=== PATIENT | female | born 1950 | race Caucasian/White ===

== ENCOUNTER 2017-06-03 22:10 | Inpatient (IN) | payer MEDICARE, OTHER ==
--- NOTE | 2017-06-03 23:02 | ED PDOC ---
Arrival/HPI - General Chief Complaint: Shortness Of Breath Time Seen by Provider: 06/03/17 22:30 Historian: Patient - History of Present Illness Narrative History of Present Illness (Text): 06/03/17 23:02 A 66 year old female presents to the emergency department complaining of shortness of breath for two days. Patient reports she went to PMD, who gave patient Albuterol and Antibiotics without relief. Patient reports headache and body aches. Patient denies any other complaints at this time. Time/Duration: < week Symptom Onset: Sudden Symptom Course: Unchanged Activities at Onset: Rest Context: Home Past Medical History - Provider Review Nursing Documentation Reviewed: Yes - Tetanus Immunization Tetanus Immunization: Unknown - Cardiac Hx Cardiac Disorders: No - Pulmonary Hx Respiratory Disorders: Yes Hx Chronic Obstructive Pulmonary Disease (COPD): Yes - Neurological Hx Neurological Disorder: No - HEENT Hx HEENT Disorder: Yes Hx Glaucoma: Yes - Renal Hx Renal Disorder: No - Endocrine/Metabolic Hx Endocrine Disorders: No - Hematological/Oncological Hx Blood Disorders: No - Integumentary Hx Dermatological Disorder: No - Musculoskeletal/Rheumatological Hx Musculoskeletal Disorders: Yes Hx Arthritis: Yes (oestoporsis) - Gastrointestinal Hx Gastrointestinal Disorders: No - Genitourinary/Gynecological Hx Genitourinary Disorders: No - Psychiatric Hx Psychophysiologic Disorder: No Hx Depression: No Hx Emotional Abuse: No Hx Physical Abuse: No Hx Substance Use: No - Surgical History Hx Hysterectomy: Yes - Suicidal Assessment Feels Threatened In Home Enviroment: No Family/Social History - Physician Review Nursing Documentation Reviewed: Yes Family/Social History: No Known Family HX Smoking Status: Former Smoker Hx Alcohol Use: Yes Frequency of alcohol use: Socially Hx Substance Use: No Hx Substance Use Treatment: No Allergies/Home Meds Allergies/Adverse Reactions: Allergies EGG Allergy (Verified 06/03/17 22:51) ANAPHYLAXIS Home Medications: Home Meds Medication Instructions Recorded Confirmed Albuterol 0.083% [Albuterol 0.083% 3 ml IH BID PRN 03/09/13 06/04/17 Inhal Cristal (2.5 mg/3 ml) UD] Brinzolamide [Azopt] 1 drop OP BID 05/23/13 06/04/17 Peg-400/Propylene Glycol [Systane 1 drop BID PRN 05/23/13 06/04/17 0.4%-0.3%] cycloSPORINE [Restasis] 1 drop OP BID 05/23/13 06/04/17 Tiotropium [place] [Spiriva] 18 mcg IH DAILY 11/29/13 06/04/17 Review of Systems - Physician Review All systems were reviewed & negative as marked: Yes - Review of Systems Constitutional: Other (body aches) Respiratory: SOB Neurological: Headache Physical Exam Vital Signs Reviewed: Yes Vital Signs Temp Pulse Resp BP Pulse Ox 06/04/17 04:07 99 H 19 106/55 L 96 06/04/17 03:56 121 H 20 108/60 94 L 06/04/17 00:33 98.4 F 135 H 19 133/69 95 06/03/17 23:10 20 95 06/03/17 22:32 100.0 F H 133 H 22 134/85 93 L Temperature: Febrile Blood Pressure: Normal Pulse: Tachycardic Respiratory Rate: Normal Appearance: Positive for: Well-Appearing, Non-Toxic, Comfortable Pain Distress: None Mental Status: Positive for: Alert and Oriented X 3 - Systems Exam Head: Present: Atraumatic, Normocephalic Pupils: Present: PERRL Extroacular Muscles: Present: EOMI Conjunctiva: Present: Normal Mouth: Present: Moist Mucous Membranes Neck: Present: Normal Range of Motion Respiratory/Chest: Present: Wheezes. No: Accessory Muscle Use Cardiovascular: Present: Regular Rate and Rhythm, Normal S1, S2. No: Murmurs Abdomen: Present: Normal Bowel Sounds. No: Tenderness, Distention, Peritoneal Signs Back: Present: Normal Inspection Upper Extremity: Present: Normal Inspection. No: Cyanosis, Edema Lower Extremity: Present: Normal Inspection. No: Edema Neurological: Present: GCS=15, CN II-XII Intact, Speech Normal Skin: Present: Warm, Dry, Normal Color. No: Rashes Psychiatric: Present: Alert, Oriented x 3, Normal Insight, Normal Concentration Medical Decision Making ED Course and Treatment: 06/03/17 23:00 Impression: A 66 year old female with shortness of breath, headache and body aches. Plan: -- EKG -- Chest X-ray -- labs -- Duoneb, Solumedrol -- Reassess and disposition Prior Visits: Notes and results from previous visits were reviewed. Patient was last seen in the emergency department on 11/29/13 for evaluation of right femur, right hip and right knee pain. Progress Notes: 06/04/17 00:00 EKG: Ordered, reviewed, and independently interpreted the EKG. Rate : 130 BPM Rhythm : sinus tachycardia Interpretation : right bundle branch block Chest X-ray- No Pneumonia, as read by me. 06/04/17 01:55 Spoke with the medical device sales and Dr. Whitt, who agree for patient to be admitted. - Lab Interpretations Microbiology Results: Microbiology Results 06/03/17 23:50 Blood-Venous Blood Culture - Final NO GROWTH AFTER 5 DAYS 06/03/17 23:50 Blood-Venous Gram Stain - Final TEST NOT PERFORMED 06/03/17 23:14 Blood-Venous Blood Culture - Final NO GROWTH AFTER 5 DAYS 06/03/17 23:14 Blood-Venous Gram Stain - Final TEST NOT PERFORMED Lab Results: 06/05/17 06:30 06/05/17 06:30 Lab Results 06/05/17 06:30: Sodium 140, Chloride 104, Potassium 4.3, Carbon Dioxide 30, Anion Gap 11, BUN 10, Creatinine 0.7, Est GFR ( Amer) > 60, Est GFR (Non- Af Amer) > 60, Random Glucose 152 H, Calcium 9.1, Phosphorus 2.8, Magnesium 2.2 , Total Bilirubin < 0.1 L, AST 51 H D, ALT 72 H, Alkaline Phosphatase 50, Lactate Dehydrogenase 581, Total Creatine Kinase 117, Troponin I < 0.01, Total Protein 5.5 L, Albumin 3.3, Globulin 2.2, Albumin/Globulin Ratio 1.5 06/05/17 06:30: WBC 11.0, RBC 3.61, Hgb 11.4 L D, Hct 34.9 L, MCV 96.7, MCH 31.6 , MCHC 32.7, RDW 13.3, Plt Count 265, MPV 9.4 06/03/17 23:50: Influenza Typ A,B (EIA) Negative for flu a/b 06/03/17 23:14: Procalcitonin < 0.05 L 06/03/17 23:14: Sodium 137, Chloride 99, Potassium 4.1, Carbon Dioxide 29, Anion Gap 13, BUN 21, Creatinine 0.9, Est GFR ( Amer) > 60, Est GFR (Non- Af Amer) > 60, Random Glucose 103, Calcium 9.9, Total Bilirubin 0.2, AST 27, ALT 38, Alkaline Phosphatase 52, Lactate Dehydrogenase 561, Total Creatine Kinase 82, Troponin I < 0.01, NT-Pro-B Natriuret Pep 88.7, Total Protein 6.6, Albumin 4.0, Globulin 2.6, Albumin/Globulin Ratio 1.5 06/03/17 23:14: pO2 35, VBG pH 7.36, VBG pCO2 55.0, VBG HCO3 31.1 H, VBG Total CO2 32.8 H, VBG O2 Sat (Calc) 76.0 H, VBG Base Excess 4.2 H, VBG Potassium 4.0, Sodium 135.0, Chloride 100.0, Glucose 108 H, Lactate 1.1, FiO2 21.0, Venous Blood Potassium 4.0 06/03/17 23:14: WBC 10.2, RBC 4.28, Hgb 13.9, Hct 41.2, MCV 96.3, MCH 32.5, MCHC 33.7, RDW 13.3, Plt Count 279, MPV 9.4, Gran % 70.0 H, Lymph % (Auto) 18.8 L, [place] % (Auto) 9.6 H, Eos % (Auto) 1.1 L, Baso % (Auto) 0.5, Gran # 7.18 H, Lymph # (Auto) 1.9, [place] # (Auto) 1.0 H, Eos # (Auto) 0.1, Baso # (Auto) 0.05 06/03/17 23:14: PT 10.4, INR 0.91 L, APTT 26.3 I have reviewed the lab results: Yes - RAD Interpretation Radiology Orders: 06/03/17 23:00 CHEST PORTABLE [RAD] Stat - EKG Interpretation Interpreted by ED Physician: Yes Type: 12 lead EKG - Medication Orders Current Medication Orders: Albuterol/Ipratropium (Duoneb 3 Mg/0.5 Mg (3 Ml) Ud) 3 ml IH Q2H PRN PRN Reason: Shortness of Breath Last Admin: 06/07/17 16:38 Dose: 3 ml Albuterol/Ipratropium (Duoneb 3 Mg/0.5 Mg (3 Ml) Ud) 3 ml IH [id number] [facility] Last Admin: 06/09/17 08:15 Dose: 3 ml Cefpodoxime Proxetil (Vantin) 200 mg PO Q12 [facility] Last Admin: 06/09/17 10:00 Dose: 200 mg Cyclosporine (Restasis) 1 ea OU BID [facility] Last Admin: 06/09/17 10:00 Dose: 1 ea Diphenhydramine HCl (Benadryl) 25 mg PO HS PRN PRN Reason: Insomnia Last Admin: 06/08/17 23:37 Dose: 25 mg Docusate Sodium (Colace) 100 mg PO BID [facility] Last Admin: 06/09/17 10:00 Dose: 100 mg Enoxaparin Sodium (Lovenox) 40 mg SC DAILY EDWARD PRN Reason: Protocol Last Admin: 06/09/17 09:59 Dose: 40 mg Subcutaneous Administrations Document 06/09/17 09:59 CV (Rec: 06/09/17 09:59 CV [facility] [id number]) Charges for Administration # of Subcutaneous Administrations 1 Azithromycin (Zithromax 500mg In Ns) 500 mg in 250 mls @ 167 mls/hr IVPB DAILY EDWARD PRN Reason: Protocol Last Admin: 06/09/17 10:00 Dose: 167 mls/hr eMAR Start Stop Document 06/09/17 10:00 CV (Rec: 06/09/17 10:00 CV [facility] [id number]) Intravenous Solution Start Date 06/09/17 Start Time 10:00 Ketorolac Tromethamine (Toradol) 15 mg IVP Q8H PRN PRN Reason: Pain Last Admin: 06/05/17 11:29 Dose: 15 mg MAR Pain Assessment Document 06/05/17 11:29 RA (Rec: 06/05/17 11:30 [id number] Pain Reassessment Is this a pain reassessment? Yes Sleep Is patient sleeping during reassessment? No Presence of Pain Presence of Pain Yes Pain Scale Used Pain Scale Used Numeric Location Upper or Lower Upper Pain Location Body Site Abdomen Description Description Intermittent IVP Administration Document 06/05/17 11:29 RA (Rec: 06/05/17 11:30 [id number][facility] Charges for Administration # of IVP Administrations 1 Re-Assess: TAYLOR Pain Assessment Document 06/05/17 12:29 RA (Rec: 06/05/17 13:01 [id number][facility] Pain Reassessment Is this a pain reassessment? Yes Sleep Is patient sleeping during reassessment? No Presence of Pain Presence of Pain No Methylprednisolone (Solu-Medrol) 20 mg IVP Q12 [facility] Last Admin: 06/09/17 09:59 Dose: 20 mg IVP Administration Document 06/09/17 09:59 CV (Rec: 06/09/17 10:00 CV [facility] [id number]) Charges for Administration # of IVP Administrations 1 Brinzolamide [Azopt] (1 Drop (Home Med)) 1 drop OP BID [facility] Last Admin: 06/09/17 10:01 Dose: 1 drop Pantoprazole Sodium (Protonix Ec Tab) 40 mg PO 0600 [facility] Last Admin: 06/09/17 05:45 Dose: 40 mg Polyethylene Glycol (Miralax) 17 gm PO BID [facility] Last Admin: 06/09/17 09:59 Dose: Not Given Non-Admin Reason: Patient Refused Discontinued Medications Albuterol/Ipratropium (Duoneb 3 Mg/0.5 Mg (3 Ml) Ud) 3 ml IH Q15M [facility] Stop: 06/03/17 23:31 Last Admin: 06/03/17 23:50 Dose: 3 ml Albuterol/Ipratropium (Duoneb 3 Mg/0.5 Mg (3 Ml) Ud) 3 ml IH STAT STA Stop: 06/07/17 21:58 Last Admin: 06/07/17 22:10 Dose: 3 ml Bisacodyl (Dulcolax) 5 mg PO ONCE ONE Stop: 06/08/17 11:11 Last Admin: 06/08/17 13:24 Dose: 5 mg Diphenhydramine HCl (Benadryl) 25 mg PO ONCE ONE Stop: 06/07/17 21:59 Last Admin: 06/07/17 22:28 Dose: 25 mg Docusate Sodium (Colace) 100 mg PO DAILY [facility] Last Admin: 06/08/17 10:16 Dose: 100 mg Last Bowel Movement Document 06/08/17 10:16 DSZ (Rec: 06/08/17 10:16 DSZ [facility] [id number]) Last Bowel Movement Last Bowel Movement 06/06/18 Ceftriaxone Sodium (Rocephin 1 Gram Ivpb) 1 gm in 100 mls @ 200 mls/hr IVPB STAT STA PRN Reason: Protocol Stop: 06/04/17 02:10 Last Admin: 06/04/17 02:02 Dose: 200 mls/hr eMAR Start Stop Document 06/04/17 02:02 JOL (Rec: 06/04/17 02:02 JOL [id number]) Intravenous Solution Start Date 06/04/17 Start Time 02:02 End Date 06/04/17 End time 02:32 Total Infusion Time 30 Azithromycin (Zithromax 500mg In Ns) 500 mg in 250 mls @ 167 mls/hr IVPB STAT STA PRN Reason: Protocol Stop: 06/04/17 03:11 Last Admin: 06/04/17 02:30 Dose: 167 mls/hr eMAR Start Stop Document 06/04/17 02:30 JOL (Rec: 06/04/17 02:47 [id number] Intravenous Solution Start Date 06/04/17 Start Time 02:32 End Date 06/04/17 End time 04:02 Total Infusion Time 90 Sodium Chloride (Sodium Chloride 0.9%) 1,000 mls @ 80 mls/hr IV .[id number] EDWARD Last Admin: 06/07/17 18:18 Dose: 80 mls/hr eMAR Start Stop Document 06/07/17 18:18 MCV (Rec: 06/07/17 18:18 MCV [id number]) Intravenous Solution Start Date 06/07/17 Start Time 18:18 Ceftriaxone Sodium (Rocephin 1 Gram Ivpb) 1 gm in 100 mls @ 100 mls/hr IVPB DAILY EDWARD PRN Reason: Protocol Last Admin: 06/05/17 11:43 Dose: 100 mls/hr eMAR Start Stop Document 06/05/17 11:43 RA (Rec: 06/05/17 11:43 RA [id number]) Intravenous Solution Start Date 06/05/17 Start Time 11:43 End Date 06/05/17 End time 12:45 Total Infusion Time 62 Ibuprofen (Motrin Tab) 400 mg PO ONCE STA Stop: 06/03/17 23:20 Last Admin: 06/04/17 02:02 Dose: 400 mg MAR Pain/Vitals Document 06/04/17 02:02 JOL (Rec: 06/04/17 02:02 JOL [id number]) Pain Reassessment Is This A Pain ReAssessment? No Presence of Pain Presence of Pain Yes Pain Scale Used Pain Scale Used Numeric Location Pain Location [employer] Expert Intensity 6 Scale Used Numeric Re-Assess: MAR Pain/Vitals Document 06/04/17 03:02 KOPPS (Rec: 06/04/17 05:07 KOPPS [id number]) Pain Reassessment Is This A Pain ReAssessment? Yes Sleep Is patient sleeping during reassessment? No Presence of Pain Presence of Pain No Methylprednisolone (Solu-Medrol) 125 mg IVP ONCE ONE Stop: 06/03/17 23:01 Last Admin: 06/03/17 23:10 Dose: 125 mg IVP Administration Document 06/03/17 23:10 JOL (Rec: 06/03/17 23:29 JOL [id number]) Charges for Administration # of IVP Administrations 1 Methylprednisolone (Solu-Medrol) 60 mg IVP Q12 [facility] Last Admin: 06/04/17 10:58 Dose: 60 mg IVP Administration Document 06/04/17 10:58 KMS (Rec: 06/04/17 10:58 KMS [id number]) Charges for Administration # of IVP Administrations 1 Methylprednisolone (Solu-Medrol) 40 mg IVP Q12 [facility] Last Admin: 06/06/17 21:38 Dose: 40 mg IVP Administration Document 06/06/17 21:38 MAD (Rec: 06/06/17 21:38 MAD [facility] [id number]) Charges for Administration # of IVP Administrations 1 Methylprednisolone (Solu-Medrol) 30 mg IVP Q12 [facility] Last Admin: 06/07/17 21:19 Dose: 30 mg IVP Administration Document 06/07/17 21:19 MJ (Rec: 06/07/17 21:19 MJ [facility] [id number]) Charges for Administration # of IVP Administrations 1 Metoprolol Tartrate (Lopressor) 5 mg IVP STAT STA Stop: 06/04/17 04:01 Last Admin: 06/04/17 04:07 Dose: 5 mg IVP Administration Document 06/04/17 04:07 JOL (Rec: 06/04/17 04:07 JOL [facility] [id number]) Charges for Administration # of IVP Administrations 1 MAY Pulse and Blood Pressure Document 06/04/17 04:07 JOL (Rec: 06/04/17 04:07 JOL [facility] [id number]) Pulse Pulse Rate (60-90) 124 Blood Pressure Blood Pressure (100/60-150/90) 108/60 Metoprolol Tartrate (Lopressor) 5 mg IVP STAT STA Stop: 06/04/17 20:40 Last Admin: 06/04/17 20:57 Dose: 5 mg IVP Administration Document 06/04/17 20:57 KOPPS (Rec: 06/04/17 20:57 KOPPS [id number]) Charges for Administration # of IVP Administrations 1 MAY Pulse and Blood Pressure Document 06/04/17 20:57 KOPPS (Rec: 06/04/17 20:57 KOPPS [id number]) Pulse Pulse Rate (60-90) 116 Blood Pressure Blood Pressure (100/60-150/90) 131/81 Simethicone (Mylicon Chew Tab) 80 mg PO STAT STA Stop: 06/04/17 03:33 Last Admin: 06/04/17 03:48 Dose: 80 mg - Scribe Statement The provider has reviewed the documentation as recorded by the Mayra Villela Provider Scribe Attestation: All medical record entries made by the Scribe were at my direction and personally dictated by me. I have reviewed the chart and agree that the record accurately reflects my personal performance of the history, physical exam, medical decision making, and the department course for this patient. I have also personally directed, reviewed, and agree with the discharge instructions and disposition. Disposition/Present on Arrival - Present on Arrival Any Indicators Present on Arrival: No History of DVT/PE: No History of Uncontrolled Diabetes: No Urinary Catheter: No History of Decub. Ulcer: No History Surgical Site Infection Following: None - Disposition Have Diagnosis and Disposition been Completed?: Yes Diagnosis: Asthmatic bronchitis Disposition: HOSPITALIZED Disposition Time: 02:00 Condition: FAIR
[2017-06-03] MEDS: Albuterol-Ipratrop 3 mg / 0.5 (3 ml) UD IH SCH ×3 (23:10→23:50)
[2017-06-03 23:58] LABS: INR 0.91 (0.93-1.08); PARTIAL THROMBOPLASTIN TIME 26.3 Seconds (25.1-36.5); PROTHROMBIN TIME 10.4 SECONDS (9.4-12.5)
[2017-06-04 00:02] LABS: ALB/GLOB RATIO 1.5 (1.1-1.8); ALT/SGPT 38 U/L (7-56); AST/SGOT 27 U/L (14-36); BLOOD UREA NITROGEN 21 mg/dL (7-21); CALCIUM 9.9 mg/dL (8.4-10.5); GFR AFRICAN-AMERICAN > 60; GFR NON-AFRICAN AMERICAN > 60
[2017-06-04 00:03] LABS: BASO # 0.05 K/mm3 (0.0-2.0); BASO % 0.5 % (0.0-3.0); EOS # 0.1 (0.0-0.7); EOS % 1.1 % (1.5-5.0); GRAN # 7.18 (1.4-6.5); HEMOGLOBIN 13.9 g/dL (12.0-16.0); LYMPH # 1.9 (1.2-3.4); LYMPH % 18.8 % (22.0-35.0); MEAN CELL VOLUME 96.3 fl (80.0-105.0); MEAN CORPUSCULAR HEMOGLOBIN 32.5 pg (25.0-35.0); MEAN CORPUSCULAR HGB CONC 33.7 g/dl (31.0-37.0); MEAN PLATELET VOLUME 9.4 fl (7.0-11.0); MONO % 9.6 % (1.0-6.0); RBC 4.28 10^6/uL (3.5-6.1); RED CELL DISTRIBUTION WIDTH 13.3 % (11.5-14.5); WHITE BLOOD COUNT 10.2 10^3/ul (4.5-11.0)
[2017-06-04 00:12] LABS: B-TYPE NATRIURETIC PEPTIDE 88.7 pg/mL (0-450); TROPONIN I < 0.01 ng/mL
[2017-06-04 00:17] LABS: VENOUS BLOOD GAS BASE EXCESS 4.2 mmol/L (0.0-2.0); VENOUS BLOOD GAS PO2 35 mm/Hg (30-55); VENOUS BLOOD PH 7.36 (7.32-7.43)
[2017-06-04] MEDS ORDERED: cefTRIAXone 1 gm 1 GM/100 ML BAG IVPB STA (01:41)
[2017-06-04] MEDS ORDERED: Azithromycin 500MG/NS 250ml 500 MG/250 ML BAG IVPB STA (01:42)
[2017-06-04] MEDS: Sodium Chloride 0.9% 1,000 ML IV SCH ×2 (02:47→15:15)
--- NOTE | 2017-06-04 02:55 | CP.PCM.HP ---
<Monster Aldridge - Last Filed: 06/04/17 03:28> History of Present Illness - History of Present Illness History of Present Illness: CC: SOB Pt is a 66 yo F with PMH of glaucoma and COPD presents to [facility] with 3 day history of dyspnea. Pt states that due to her history of COPD she has some shortness of breath with increased activity. However, over the past 3 days SOB was occurring during rest. Pt states she also had an associated productive cough with white sputum. Pt went to her PMD for evaluation and was prescribed Azithromycin. However, after 3 days of antibiotics and regular use of her nebulizer at home, patient states that her dyspnea did not improve. Thus, patient came to [facility] to be evaluated. Pt denies any recent illnesses, sick contacts, travel, or admissions to any hospital or health care facilities within the last 3 months. Pt is not O2 dependent. Pt denies CP, n/v/d, abdominal pain, fever, chills, GRAF, or dizziness. PMD: [facility]ilet PMH: Glaucoma and COPD Surg: Breast implants, total hysterectomy All: Eggs FHx: Non-contributory SH: Former 1 ppd for 30 yrs (quit 1 yr ago), social EtOH use, denied illicit drug use Medications as per MAR Present on Admission - Present on Admission Any Indicators Present on Admission: No Review of Systems - Review of Systems Review of Systems: 12 point ROS reviewed and is negative other than what is stated in HPI. Past Patient History - Tetanus Immunizations Tetanus Immunization: Unknown - Past Social History Smoking Status: Former Smoker - CARDIAC Hx Cardiac Disorders: No - PULMONARY Hx Respiratory Disorders: Yes Hx Chronic Obstructive Pulmonary Disease (COPD): Yes - NEUROLOGICAL Hx Neurological Disorder: No - HEENT Hx HEENT Problems: Yes Hx Glaucoma: Yes - RENAL Hx Chronic Kidney Disease: No - ENDOCRINE/METABOLIC Hx Endocrine Disorders: No - HEMATOLOGICAL/ONCOLOGICAL Hx Blood Disorders: No - INTEGUMENTARY Hx Dermatological Problems: No - MUSCULOSKELETAL/RHEUMATOLOGICAL Hx Musculoskeletal Disorders: Yes Hx Arthritis: Yes (oestoporsis) - GASTROINTESTINAL Hx Gastrointestinal Disorders: No - GENITOURINARY/GYNECOLOGICAL Hx Genitourinary Disorders: No - PSYCHIATRIC Hx Psychophysiologic Disorder: No Hx Depression: No Hx Emotional Abuse: No Hx Physical Abuse: No Hx Substance Use: No - SURGICAL HISTORY Hx Hysterectomy: Yes Meds Allergies/Adverse Reactions: Allergies Allergy/AdvReac Type Severity Reaction Status Date / Time EGG Allergy ANAPHYLAXIS Verified 06/03/17 22:51 Physical Exam - Constitutional Appears: No Acute Distress - Head Exam Head Exam: NORMAL INSPECTION - Eye Exam Eye Exam: Normal appearance - ENT Exam ENT Exam: Mucous Membranes Moist - Neck Exam Neck exam: Positive for: Normal Inspection - Respiratory Exam Respiratory Exam: Wheezes (b/l). absent: Accessory Muscle Use, Decreased Breath Sounds, Rales, Rhonchi, Respiratory Distress - Cardiovascular Exam Cardiovascular Exam: Tachycardia, +S1, +S2. absent: Diastolic murmur, Gallop, Rubs, Systolic Murmur - GI/Abdominal Exam GI & Abdominal Exam: Soft. absent: Distended, Guarding, Rebound, Tenderness - Extremities Exam Extremities exam: Positive for: normal inspection - Back Exam Back exam: NORMAL INSPECTION - Neurological Exam Neurological exam: Alert, CN II-XII Intact, Oriented x3 - Psychiatric Exam Psychiatric exam: Normal Affect, Normal Mood - Skin Skin Exam: Dry, Intact, Normal Color, Warm Results - Vital Signs Recent Vital Signs: Last Vital Signs Temp 98.4 F 06/04/17 00:33 Pulse 135 H 06/04/17 00:33 Resp 19 06/04/17 00:33 BP 133/69 06/04/17 00:33 Pulse Ox 95 06/04/17 00:33 - Labs Result Diagrams: 06/03/17 23:14 06/03/17 23:14 Assessment & Plan - Assessment and Plan (Free Text) Assessment: 66 yo F with PMH of glaucoma and COPD admitted for acute bronchitis vs. pneumonia. Plan: 1. Dyspnea - Acute bronchitis vs community acquired pneumonia vs COPD exacerbation - VBG shows some CO2 retention and hypoxia, normal pH and lactate - Influenza negative - CXR negative - EKG showed sinus tachycardia, biatrial enlargement, RBBB - Procal ordered - Ceftriaxone and Azithromycin - Duoneb екатерина and prn for shortness of breath - Solumedrol 60 mg q12h due to wheezing - NS at 80 cc/hr - O2 via NC 2L - F/u blood culture 2. H/o Glaucoma - Cont to home medicatiosn GI/DVT PPx - Protonix - Lovenox Pt seen and discussed in detail with Dr. Whitt. Christopher Aldridge, PGY1 <Edie Whitt - Last Filed: 06/04/17 04:34> Results - Vital Signs Recent Vital Signs: Last Vital Signs Temp 98.4 F 06/04/17 00:33 Pulse 99 H 06/04/17 04:07 Resp 19 06/04/17 04:07 BP 106/55 L 06/04/17 04:07 Pulse Ox 96 06/04/17 04:07 - Labs Result Diagrams: 06/03/17 23:14 06/03/17 23:14 Attending/Attestation - Attestation I have personally seen and examined this patient.: Yes I have fully participated in the care of the patient.: Yes I have reviewed all pertinent clinical information: Yes Notes (Text): 06/04/17 04:17 Patient was seen when she was in the ER in bed # 4. Agree with history , physical examination and plan. Following should be noted. Fever. Mucus in throat. SOB. Wheezing. Headache. Bodyache. Nightsweats for 2-3 months. COPD. Bronchitis. Glaucoma. Gastritis. PUD. History of anemia. History of pneumonia for which hospitalized x 2-3. History of endoscopy. History of colonoscopy -Polypectomy. Osteoporosis. Former smoker. Social use of alcohol. Sinus tachycardia. RBBB. History hystrectomy. History tonsillectomy. Allelrgy to eggs. Allergy to Chicken. Allergy to amoxicillin. Allergy to soap, vitamins. History of high cholesterol. History uterine fibroid. History of dryness of eyes. History epistaxis. Seasonal allergies. Family hisory of [place]-Brother at age 37 years.
[2017-06-04] MEDS: Albuterol-Ipratrop 3 mg / 0.5 (3 ml) UD IH PRN (03:11)
[2017-06-04] MEDS ORDERED: Simethicone 80 mg Chewtab PO STA (03:32)
[2017-06-04] MEDS ORDERED: Metoprolol 1 mg/ml Inj IVP STA ×2 (04:00→20:39)
[2017-06-04] MEDS: Pantoprazole 40 mg EC Tab PO SCH (05:14)
[2017-06-04] MEDS: Albuterol-Ipratrop 3 mg / 0.5 (3 ml) UD IH SCH ×3 (08:09→21:25)
--- NOTE | 2017-06-04 08:27 | RAD ---
HISTORY: sob COMPARISON: 01/08/2017 FINDINGS: LUNGS: No active pulmonary disease. PLEURA: No significant pleural effusion identified, no pneumothorax apparent. CARDIOVASCULAR: Normal. OSSEOUS STRUCTURES: No significant abnormalities. VISUALIZED UPPER ABDOMEN: Normal. OTHER FINDINGS: Calcified breast implants IMPRESSION: No active disease.
[2017-06-04] MEDS ORDERED: MethylPREDNISolone 40 mg Vial IVP SCH (10:00)
[2017-06-04] MEDS: Enoxaparin 40 mg Syringe SC SCH (10:58)
[2017-06-04] MEDS: cycloSPORINE 0.05 % Opth Emulsion UD OU SCH ×2 (10:58→17:42)
[2017-06-04] MEDS: BRINZOLAMIDE OP SCH ×2 (11:24→17:41)
[2017-06-04 11:53] VITALS: BMI 20.2
[2017-06-04] MEDS: cefTRIAXone 1 gm 1 GM/100 ML BAG IVPB SCH (14:33)
[2017-06-04] MEDS: Azithromycin 500MG/NS 250ml 500 MG/250 ML BAG IVPB SCH (14:35)
--- NOTE | 2017-06-04 18:31 | CARD ---
APPROVED REPORT EKG Measurement Heart [id number] [place] 146P84 [id number] <Conclusion> Sinus tachycardia Possible Left atrial enlargement Right bundle branch block Left anterior fascicular block Bifascicular block Abnormal ECG
--- NOTE | 2017-06-04 18:32 | CARD ---
APPROVED REPORT EKG Measurement Heart [id number] [place] 158P85 [id number] <Conclusion> Sinus tachycardia Possible Left atrial enlargement Right bundle branch block Abnormal ECG
--- NOTE | 2017-06-04 18:34 | CARD ---
APPROVED REPORT EKG Measurement Heart [id number] [place] 150P88 [id number] <Conclusion> Poor data quality, interpretation may be adversely affected Sinus tachycardia Biatrial enlargement Right bundle branch block Abnormal ECG
[2017-06-04] MEDS: MethylPREDNISolone 40 mg Vial IVP SCH (20:59)
[2017-06-05] MEDS: Albuterol-Ipratrop 3 mg / 0.5 (3 ml) UD IH SCH ×4 (01:42→19:21)
[2017-06-05] MEDS: Sodium Chloride 0.9% 1,000 ML IV SCH (05:54)
[2017-06-05] MEDS: Pantoprazole 40 mg EC Tab PO SCH (05:54)
[2017-06-05 07:06] LABS: HEMOGLOBIN 11.4 g/dL (12.0-16.0); MEAN CELL VOLUME 96.7 fl (80.0-105.0); MEAN CORPUSCULAR HEMOGLOBIN 31.6 pg (25.0-35.0); MEAN CORPUSCULAR HGB CONC 32.7 g/dl (31.0-37.0); MEAN PLATELET VOLUME 9.4 fl (7.0-11.0); RBC 3.61 10^6/uL (3.5-6.1); RED CELL DISTRIBUTION WIDTH 13.3 % (11.5-14.5)
[2017-06-05 07:16] LABS: TROPONIN I < 0.01 ng/mL
[2017-06-05 07:38] LABS: ALB/GLOB RATIO 1.5 (1.1-1.8); ALBUMIN 3.3 g/dL (3.0-4.8); ALT/SGPT 72 U/L (7-56); AST/SGOT 51 U/L (14-36); BLOOD UREA NITROGEN 10 mg/dL (7-21); CALCIUM 9.1 mg/dL (8.4-10.5); GFR AFRICAN-AMERICAN > 60; GFR NON-AFRICAN AMERICAN > 60
[2017-06-05] MEDS: cycloSPORINE 0.05 % Opth Emulsion UD OU SCH (10:31)
[2017-06-05] MEDS: Enoxaparin 40 mg Syringe SC SCH (10:31)
[2017-06-05] MEDS: MethylPREDNISolone 40 mg Vial IVP SCH ×2 (10:32→21:38)
[2017-06-05] MEDS: Azithromycin 500MG/NS 250ml 500 MG/250 ML BAG IVPB SCH (10:32)
[2017-06-05] MEDS: cefTRIAXone 1 gm 1 GM/100 ML BAG IVPB SCH (11:43)
[2017-06-05] MEDS: BRINZOLAMIDE OP SCH (13:01)
--- NOTE | 2017-06-05 13:17 | CP.PCM.PN ---
<Roxana Sanchez - Last Filed: 06/05/17 13:24> Subjective - Date & Time of Evaluation Date of Evaluation: 06/05/17 Time of Evaluation: 13:16 - Subjective Subjective: Roxana Sanchez DO, PGY-1: Hospitalist Service Patient seen and examined at bedside. Patient complained of left upper abdominal pain overnight and was given toradol 15 mg IVP. This morning on evaluation patient reports her breathing was improved and she was not getting dyspnea with walking to the bathroom; however, in the afternoon patient complained of pain along the costal margins and dyspnea again. Furthermore, overnight patient was given Metoprolol for tachycardia. Objective - Vital Signs/Intake and Output Vital Signs (last 24 hours): Temp Pulse Resp BP Pulse Ox 98 F 90 20 128/72 86 L 06/05/17 06:00 06/05/17 06:00 06/05/17 06:00 06/05/17 06:00 06/05/17 11:47 - Medications Medications: Current Medications Albuterol/Ipratropium (Duoneb 3 Mg/0.5 Mg (3 Ml) Ud) 3 ml IH Q2H PRN PRN Reason: Shortness of Breath Last Admin: 06/04/17 03:11 Dose: 3 ml Albuterol/Ipratropium (Duoneb 3 Mg/0.5 Mg (3 Ml) Ud) 3 ml IH [id number] [facility] Last Admin: 06/05/17 09:05 Dose: 3 ml Cyclosporine (Restasis) 1 ea OU BID [facility] Last Admin: 06/05/17 10:31 Dose: Not Given Enoxaparin Sodium (Lovenox) 40 mg SC DAILY [facility] PRN Reason: Protocol Last Admin: 06/05/17 10:31 Dose: 40 mg Sodium Chloride (Sodium Chloride 0.9%) 1,000 mls @ 80 mls/hr IV .[id number] [facility] Last Admin: 06/05/17 05:54 Dose: 80 mls/hr Ceftriaxone Sodium (Rocephin 1 Gram Ivpb) 1 gm in 100 mls @ 100 mls/hr IVPB DAILY [facility] PRN Reason: Protocol Last Admin: 06/05/17 11:43 Dose: 100 mls/hr Azithromycin (Zithromax 500mg In Ns) 500 mg in 250 mls @ 167 mls/hr IVPB DAILY [facility] PRN Reason: Protocol Last Admin: 06/05/17 10:32 Dose: 167 mls/hr Ketorolac Tromethamine (Toradol) 15 mg IVP Q8H PRN PRN Reason: Pain Last Admin: 06/05/17 11:29 Dose: 15 mg Methylprednisolone (Solu-Medrol) 40 mg IVP Q12 [facility] Last Admin: 06/05/17 10:32 Dose: 40 mg Brinzolamide [Azopt] (1 Drop (Home Med)) 1 drop OP BID [facility] Last Admin: 06/05/17 13:01 Dose: Not Given Pantoprazole Sodium (Protonix Ec Tab) 40 mg PO 0600 [facility] Last Admin: 06/05/17 05:54 Dose: 40 mg - Labs Labs: PT 10.4 SECONDS (9.4-12.5) 06/03/17 23:14 INR 0.91 (0.93-1.08) L 06/03/17 23:14 APTT 26.3 Seconds (25.1-36.5) 06/03/17 23:14 - Constitutional Appears: Non-toxic, No Acute Distress - Head Exam Head Exam: ATRAUMATIC, NORMOCEPHALIC - Eye Exam Eye Exam: EOMI, Normal appearance - ENT Exam ENT Exam: Mucous Membranes Moist - Neck Exam Neck Exam: Normal Inspection - Respiratory Exam Respiratory Exam: Wheezes, NORMAL BREATHING PATTERN. absent: Accessory Muscle Use - Cardiovascular Exam Cardiovascular Exam: RRR, +S1, +S2 - GI/Abdominal Exam GI & Abdominal Exam: Soft, Normal Bowel Sounds. absent: Organomegaly, Rebound - Extremities Exam Extremities Exam: Normal Inspection - Back Exam Back Exam: NORMAL INSPECTION. absent: CVA tenderness (L), CVA tenderness (R) - Neurological Exam Neurological Exam: Alert, Awake, Oriented x3 - Psychiatric Exam Psychiatric exam: Normal Affect, Normal Mood - Skin Skin Exam: Dry, Intact, Normal Color, Warm Assessment and Plan - Assessment and Plan (Free Text) Assessment: 66 year old female with F with PMH of glaucoma and COPD admitted for acute bronchitis vs. pneumonia. Plan: 1) COPD exacerbation - Influenza negative - CXR negative - Procal ordered, negative - Ceftriaxone and Azithromycin day 2 - Duoneb [facility]WARD and PRN - Solumedrol 40 mg q12h due to wheezing - NS at 80 cc/hr - O2 via NC 2L - Blood cultures negative x2 2)Atypical chest pain, r/o ACS - Stat troponin negative, repeat EKG unchanged. 3) Dry eyes and glaucoma - Continue with home medication (Restasis) and brinzolamide. 4) Left Upper quandrant pain and slight rise in AST and ALT - Abdominal US 5) Gait instability and deconditiong - PT evaluation ordered 6)GI/DVT PPx - Protonix - Lovenox Pt seen and discussed in detail with Dr. Burris <Cam Burris - Last Filed: 06/05/17 15:38> Objective - Vital Signs/Intake and Output Vital Signs (last 24 hours): Temp Pulse Resp BP Pulse Ox 98.4 F 108 H 20 121/78 86 L 06/05/17 12:00 06/05/17 12:00 06/05/17 12:00 06/05/17 12:00 06/05/17 11:47 - Medications Medications: Current Medications Albuterol/Ipratropium (Duoneb 3 Mg/0.5 Mg (3 Ml) Ud) 3 ml IH Q2H PRN PRN Reason: Shortness of Breath Last Admin: 06/04/17 03:11 Dose: 3 ml Albuterol/Ipratropium (Duoneb 3 Mg/0.5 Mg (3 Ml) Ud) 3 ml IH [id number] [facility] Last Admin: 06/05/17 13:36 Dose: 3 ml Cefpodoxime Proxetil (Vantin) 200 mg PO Q12 [facility] Cyclosporine (Restasis) 1 ea OU BID [facility] Last Admin: 06/05/17 10:31 Dose: Not Given Enoxaparin Sodium (Lovenox) 40 mg SC DAILY [facility] PRN Reason: Protocol Last Admin: 06/05/17 10:31 Dose: 40 mg Sodium Chloride (Sodium Chloride 0.9%) 1,000 mls @ 80 mls/hr IV .[id number] [facility] Last Admin: 06/05/17 05:54 Dose: 80 mls/hr Azithromycin (Zithromax 500mg In Ns) 500 mg in 250 mls @ 167 mls/hr IVPB DAILY [facility] PRN Reason: Protocol Last Admin: 06/05/17 10:32 Dose: 167 mls/hr Ketorolac Tromethamine (Toradol) 15 mg IVP Q8H PRN PRN Reason: Pain Last Admin: 06/05/17 11:29 Dose: 15 mg Methylprednisolone (Solu-Medrol) 40 mg IVP Q12 [facility] Last Admin: 06/05/17 10:32 Dose: 40 mg Brinzolamide [Azopt] (1 Drop (Home Med)) 1 drop OP BID [facility] Last Admin: 06/05/17 13:01 Dose: Not Given Pantoprazole Sodium (Protonix Ec Tab) 40 mg PO 0600 [facility] Last Admin: 06/05/17 05:54 Dose: 40 mg - Labs Labs: PT 10.4 SECONDS (9.4-12.5) 06/03/17 23:14 INR 0.91 (0.93-1.08) L 06/03/17 23:14 APTT 26.3 Seconds (25.1-36.5) 06/03/17 23:14 Attending/Attestation - Attestation I have personally seen and examined this patient.: Yes I have fully participated in the care of the patient.: Yes I have reviewed all pertinent clinical information, including history, physical exam and plan: Yes Notes (Text): 06/05/17 15:35 66 year old female with past medical history of COPD who is admitted with COPD exacerbation. Still reports dyspnea with even slight exertion today. Continue with iv steroids, duonebs and iv antibiotics. Today also complains of abdominal pain. LFTs are mildly elevated. Will obtain serial cardiac enzymes and abdominal ultrasound. Cam Burris MD Hospitalist.
--- NOTE | 2017-06-05 20:20 | CARD ---
APPROVED REPORT EKG Measurement Heart [id number] <Conclusion> Sinus tachycardia Possible Left atrial enlargement Incomplete right bundle branch block Borderline ECG
[2017-06-06] MEDS: Albuterol-Ipratrop 3 mg / 0.5 (3 ml) UD IH PRN ×2 (00:04→06:00)
[2017-06-06] MEDS: Albuterol-Ipratrop 3 mg / 0.5 (3 ml) UD IH SCH ×4 (01:19→22:39)
[2017-06-06] MEDS: Pantoprazole 40 mg EC Tab PO SCH (05:06)
[2017-06-06 06:32] LABS: HEMOGLOBIN 12.6 g/dL (12.0-16.0); MEAN CELL VOLUME 95.7 fl (80.0-105.0); MEAN CORPUSCULAR HGB CONC 33.4 g/dl (31.0-37.0); MEAN PLATELET VOLUME 9.4 fl (7.0-11.0); RBC 3.94 10^6/uL (3.5-6.1); RED CELL DISTRIBUTION WIDTH 12.9 % (11.5-14.5); WHITE BLOOD COUNT 13.6 10^3/ul (4.5-11.0)
[2017-06-06 06:47] LABS: ALB/GLOB RATIO 1.5 (1.1-1.8); ALBUMIN 3.8 g/dL (3.0-4.8); ALT/SGPT 273 U/L (7-56); AST/SGOT 141 U/L (14-36); BLOOD UREA NITROGEN 15 mg/dL (7-21); CALCIUM 9.8 mg/dL (8.4-10.5); GFR AFRICAN-AMERICAN > 60; GFR NON-AFRICAN AMERICAN > 60
[2017-06-06] MEDS: Azithromycin 500MG/NS 250ml 500 MG/250 ML BAG IVPB SCH (09:54)
[2017-06-06] MEDS: MethylPREDNISolone 40 mg Vial IVP SCH ×2 (09:54→21:38)
[2017-06-06] MEDS: Cefpodoxime (Vantin) 200 mg Tab PO SCH ×2 (09:54→21:38)
[2017-06-06] MEDS: Enoxaparin 40 mg Syringe SC SCH (09:54)
[2017-06-06] MEDS: BRINZOLAMIDE OP SCH ×2 (09:55→17:18)
[2017-06-06] MEDS: cycloSPORINE 0.05 % Opth Emulsion UD OU SCH ×2 (09:55→17:17)
--- NOTE | 2017-06-06 10:05 | US ---
HISTORY: abdominal pain; LFT COMPARISON: None. TECHNIQUE: Sonographic evaluation of the abdomen. FINDINGS: LIVER: Measures 13.6 cm. Patent portal vein. Portal venous flow: Hepatopetal. Unremarkable echogenicity of the liver parenchyma. No mass. No intrahepatic bile duct dilatation. GALLBLADDER: Unremarkable. No gallstones. COMMON BILE DUCT: Measures 2.9 mm. No stones. No dilatation. PANCREAS: Unremarkable as visualized. No mass. No ductal dilatation. RIGHT KIDNEY: Measures 3.9 x 9.3cm. Normal echogenicity. No calculus, mass, or hydronephrosis. LEFT KIDNEY: Measures 5.1 x 9.7cm. Normal echogenicity. No calculus, mass, or hydronephrosis. SPLEEN: Normal in size and contour. No mass. AORTA: No aneurysmal dilatation. IVC: Unremarkable. OTHER FINDINGS: None. IMPRESSION: No acute findings related to/accounting for the clinical presentation.
[2017-06-06 11:40] LABS: HEPATITIS B SURFACE AG Negative (NEGATIVE)
[2017-06-06 11:46] LABS: HEPATITIS A IGM NEGATIVE (NEGATIVE); HEPATITIS B CORE AB NEGATIVE (NEGATIVE)
[2017-06-06 11:58] LABS: HEPATITIS C ANTIBODY NEGATIVE (NEGATIVE)
[2017-06-06] MEDS: POLYETHYLENE GLYCOL 3350 17 GM/Dose PACKET PO SCH (17:17)
--- NOTE | 2017-06-06 18:24 | CP.PCM.PN ---
<Thaddeus Randall - Last Filed: 06/06/17 18:21> Subjective - Date & Time of Evaluation Date of Evaluation: 06/06/17 Time of Evaluation: 07:30 - Subjective Subjective: Thaddeus Randall DO, PGY-1: Hospitalist Service Patient seen and examined at bedside. Patient reports improvement in chest pain , shortness of breath, and cough. Patient continues to have band-like abdominal epigastric pain when she coughs. She denies fevers, chills, nausea, vomiting, diarrhea, constipation. Objective - Vital Signs/Intake and Output Vital Signs (last 24 hours): Temp Pulse Resp BP Pulse Ox 98.2 F 109 H 20 140/80 94 L 06/06/17 14:00 06/06/17 14:00 06/06/17 14:00 06/06/17 14:00 06/06/17 14:00 Intake and Output: 06/06/17 06/06/17 06:59 18:59 Intake Total 120 660 Output Total 500 2 Balance -380 658 - Medications Medications: Current Medications Albuterol/Ipratropium (Duoneb 3 Mg/0.5 Mg (3 Ml) Ud) 3 ml IH Q2H PRN PRN Reason: Shortness of Breath Last Admin: 06/06/17 06:00 Dose: 3 ml Albuterol/Ipratropium (Duoneb 3 Mg/0.5 Mg (3 Ml) Ud) 3 ml IH [id number] [facility] Last Admin: 06/06/17 11:43 Dose: 3 ml Cefpodoxime Proxetil (Vantin) 200 mg PO Q12 [facility] Last Admin: 06/06/17 09:54 Dose: 200 mg Cyclosporine (Restasis) 1 ea OU BID [facility] Last Admin: 06/06/17 17:17 Dose: 1 ea Docusate Sodium (Colace) 100 mg PO DAILY [facility] Last Admin: 06/06/17 14:04 Dose: 100 mg Enoxaparin Sodium (Lovenox) 40 mg SC DAILY [facility] PRN Reason: Protocol Last Admin: 06/06/17 09:54 Dose: 40 mg Sodium Chloride (Sodium Chloride 0.9%) 1,000 mls @ 80 mls/hr IV .[id number] [facility] Last Admin: 06/05/17 05:54 Dose: 80 mls/hr Azithromycin (Zithromax 500mg In Ns) 500 mg in 250 mls @ 167 mls/hr IVPB DAILY [facility] PRN Reason: Protocol Last Admin: 06/06/17 09:54 Dose: 167 mls/hr Ketorolac Tromethamine (Toradol) 15 mg IVP Q8H PRN PRN Reason: Pain Last Admin: 06/05/17 11:29 Dose: 15 mg Methylprednisolone (Solu-Medrol) 40 mg IVP Q12 [facility] Last Admin: 06/06/17 09:54 Dose: 40 mg Brinzolamide [Azopt] (1 Drop (Home Med)) 1 drop OP BID [facility] Last Admin: 06/06/17 17:18 Dose: 1 drop Pantoprazole Sodium (Protonix Ec Tab) 40 mg PO 0600 [facility] Last Admin: 06/06/17 05:06 Dose: 40 mg Polyethylene Glycol (Miralax) 17 gm PO BID [facility] Last Admin: 06/06/17 17:17 Dose: 17 gm - Labs Labs: 06/06/17 05:30 06/06/17 05:30 PT 10.4 SECONDS (9.4-12.5) 06/03/17 23:14 INR 0.91 (0.93-1.08) L 06/03/17 23:14 APTT 26.3 Seconds (25.1-36.5) 06/03/17 23:14 - Constitutional Appears: Non-toxic, No Acute Distress, Chronically Ill - Head Exam Head Exam: ATRAUMATIC, NORMOCEPHALIC - Eye Exam Eye Exam: EOMI, PERRL - ENT Exam ENT Exam: Mucous Membranes Moist - Neck Exam Neck Exam: Normal Inspection - Respiratory Exam Respiratory Exam: Accessory Muscle Use, Decreased Breath Sounds, Prolonged Expiratory Phase, Wheezes. absent: Chest Wall Tenderness, Respiratory Distress , Stridor Additional comments: Comfortable on 2L by NC - Cardiovascular Exam Cardiovascular Exam: Tachycardia, REGULAR RHYTHM, Murmur (2/6 intensity, increases on deep inspiration, best heard over left 5th intercostal space) - GI/Abdominal Exam GI & Abdominal Exam: Soft, Normal Bowel Sounds. absent: Tenderness, Organomegaly - Extremities Exam Extremities Exam: Normal Inspection. absent: Calf Tenderness, Pedal Edema - Neurological Exam Neurological Exam: Alert, Awake, CN II-XII Intact, Oriented x3 - Psychiatric Exam Psychiatric exam: Normal Affect, Normal Mood - Skin Skin Exam: Dry, Intact Assessment and Plan - Assessment and Plan (Free Text) Assessment: Assessment: 66 year old female with F with PMH of glaucoma and COPD admitted for acute bronchitis vs. pneumonia. Plan: 1) COPD exacerbation - Patient not on home O2; though is still requiring it for symptomatic relief; still wheezing on exam - Continue PO vantin and Azithromycin day 3 - Duoneb EDWARD and PRN - Continue Solumedrol 40 mg q12h due to wheezing - NS at 80 cc/hr - O2 via NC 2L - Blood cultures negative x2 2)Atypical chest pain, r/o ACS; murmur noted on exam - Serial troponins negative, repeat EKG unchanged. - Ordered echo for murmur noted on exam; no prior echo on record 3) Dry eyes and glaucoma - Continue with home medication (Restasis) and brinzolamide. 4) Transaminemia - Abdominal pain improving; associated with cough - Transaminemia trending up - Abdominal US done; pending read - Viral hepatitis panel ordered - Continue to monitor 5) Gait instability and deconditiong - PT evaluation ordered 6) Constipation - Patient complaining of constipation - Start Miralax and Colace GI/DVT PPx - Protonix - Lovenox Pt seen and discussed in detail with Dr. Burris <Cam Burris - Last Filed: 06/07/17 07:54> Objective - Vital Signs/Intake and Output Vital Signs (last 24 hours): Temp Pulse Resp BP Pulse Ox 98.2 F 109 H 22 160/94 H 98 06/06/17 22:00 06/06/17 22:00 06/06/17 22:00 06/06/17 22:00 06/06/17 22:00 Intake and Output: 06/07/17 06/07/17 06:59 18:59 Intake Total 840 Balance 840 - Medications Medications: Current Medications Albuterol/Ipratropium (Duoneb 3 Mg/0.5 Mg (3 Ml) Ud) 3 ml IH Q2H PRN PRN Reason: Shortness of Breath Last Admin: 06/06/17 06:00 Dose: 3 ml Albuterol/Ipratropium (Duoneb 3 Mg/0.5 Mg (3 Ml) Ud) 3 ml IH [id number] [facility] Last Admin: 06/07/17 05:06 Dose: 3 ml Cefpodoxime Proxetil (Vantin) 200 mg PO Q12 [facility] Last Admin: 06/06/17 21:38 Dose: 200 mg Cyclosporine (Restasis) 1 ea OU BID [facility] Last Admin: 06/06/17 17:17 Dose: 1 ea Docusate Sodium (Colace) 100 mg PO DAILY [facility] Last Admin: 06/06/17 14:04 Dose: 100 mg Enoxaparin Sodium (Lovenox) 40 mg SC DAILY [facility] PRN Reason: Protocol Last Admin: 06/06/17 09:54 Dose: 40 mg Sodium Chloride (Sodium Chloride 0.9%) 1,000 mls @ 80 mls/hr IV .[id number] [facility] Last Admin: 06/06/17 18:57 Dose: 80 mls/hr Azithromycin (Zithromax 500mg In Ns) 500 mg in 250 mls @ 167 mls/hr IVPB DAILY [facility] PRN Reason: Protocol Last Admin: 06/06/17 09:54 Dose: 167 mls/hr Ketorolac Tromethamine (Toradol) 15 mg IVP Q8H PRN PRN Reason: Pain Last Admin: 06/05/17 11:29 Dose: 15 mg Methylprednisolone (Solu-Medrol) 40 mg IVP Q12 [facility] Last Admin: 06/06/17 21:38 Dose: 40 mg Brinzolamide [Azopt] (1 Drop (Home Med)) 1 drop OP BID [facility] Last Admin: 06/06/17 17:18 Dose: 1 drop Pantoprazole Sodium (Protonix Ec Tab) 40 mg PO 0600 [facility] Last Admin: 06/07/17 05:23 Dose: 40 mg Polyethylene Glycol (Miralax) 17 gm PO BID [facility] Last Admin: 06/06/17 17:17 Dose: 17 gm - Labs Labs: 06/06/17 05:30 06/06/17 05:30 PT 10.4 SECONDS (9.4-12.5) 06/03/17 23:14 INR 0.91 (0.93-1.08) L 06/03/17 23:14 APTT 26.3 Seconds (25.1-36.5) 06/03/17 23:14 Attending/Attestation - Attestation I have personally seen and examined this patient.: Yes I have fully participated in the care of the patient.: Yes I have reviewed all pertinent clinical information, including history, physical exam and plan: Yes Notes (Text): 06/06/17 66 year old female with past medical history of COPD who is admitted with COPD exacerbation. Continue with iv steroids, duonebs and antibiotics. Continue with supplemental oxygen as needed. Abdominal pain has improved although LFTs are still elevated. Will follow up on abdominal US and hepatitis panel. Serial cardiac enzymes were negative and ACS was ruled out. Echocardiogram is ordered. Cam Burris MD Hospitalist.
[2017-06-06] MEDS: Sodium Chloride 0.9% 1,000 ML IV SCH (18:57)
[2017-06-07] MEDS: Albuterol-Ipratrop 3 mg / 0.5 (3 ml) UD IH SCH ×4 (05:06→21:00)
[2017-06-07] MEDS: Pantoprazole 40 mg EC Tab PO SCH (05:23)
[2017-06-07 08:10] LABS: HEMOGLOBIN 12.8 g/dL (12.0-16.0); MEAN CELL VOLUME 94.6 fl (80.0-105.0); MEAN CORPUSCULAR HEMOGLOBIN 32.7 pg (25.0-35.0); MEAN CORPUSCULAR HGB CONC 34.5 g/dl (31.0-37.0); MEAN PLATELET VOLUME 9.3 fl (7.0-11.0); RBC 3.92 10^6/uL (3.5-6.1); RED CELL DISTRIBUTION WIDTH 12.8 % (11.5-14.5); WHITE BLOOD COUNT 12.9 10^3/ul (4.5-11.0)
[2017-06-07 08:34] LABS: ALB/GLOB RATIO 1.5 (1.1-1.8); ALBUMIN 3.6 g/dL (3.0-4.8); ALT/SGPT 186 U/L (7-56); AST/SGOT 48 U/L (14-36); BLOOD UREA NITROGEN 15 mg/dL (7-21); CALCIUM 9.6 mg/dL (8.4-10.5); GFR AFRICAN-AMERICAN > 60; GFR NON-AFRICAN AMERICAN > 60
[2017-06-07] MEDS: Enoxaparin 40 mg Syringe SC SCH (10:29)
[2017-06-07] MEDS: MethylPREDNISolone 40 mg Vial IVP SCH ×2 (10:29→21:19)
[2017-06-07] MEDS: POLYETHYLENE GLYCOL 3350 17 GM/Dose PACKET PO SCH ×2 (10:29→18:17)
[2017-06-07] MEDS: Azithromycin 500MG/NS 250ml 500 MG/250 ML BAG IVPB SCH (10:29)
[2017-06-07] MEDS: Cefpodoxime (Vantin) 200 mg Tab PO SCH ×2 (10:30→21:19)
[2017-06-07] MEDS: BRINZOLAMIDE OP SCH ×2 (10:34→18:16)
[2017-06-07] MEDS: cycloSPORINE 0.05 % Opth Emulsion UD OU SCH ×2 (10:35→18:17)
[2017-06-07] MEDS: Sodium Chloride 0.9% 1,000 ML IV SCH ×2 (10:36→18:18)
[2017-06-07] MEDS: Albuterol-Ipratrop 3 mg / 0.5 (3 ml) UD IH PRN (16:38)
--- NOTE | 2017-06-07 16:52 | CP.PCM.PN ---
<Thaddeus Randall - Last Filed: 06/07/17 16:48> Subjective - Date & Time of Evaluation Date of Evaluation: 06/07/17 Time of Evaluation: 07:30 - Subjective Subjective: Thaddeus Randall DO, PGY-1: Hospitalist Service Patient seen and examined at bedside. Patient reports marked improvement in chest pain, shortness of breath, and cough, though still has abdominal pain with cough. Patient ambulating around room without dyspnea. She denies fevers, chills, nausea, vomiting, diarrhea. Complaining of constipation Objective - Vital Signs/Intake and Output Vital Signs (last 24 hours): Temp Pulse Resp BP Pulse Ox 97.4 F L 111 H 22 139/79 93 L 06/07/17 06:00 06/07/17 06:00 06/07/17 06:00 06/07/17 06:00 06/07/17 06:00 Intake and Output: 06/07/17 06/07/17 06:59 18:59 Intake Total 840 720 Balance 840 720 - Medications Medications: Current Medications Albuterol/Ipratropium (Duoneb 3 Mg/0.5 Mg (3 Ml) Ud) 3 ml IH Q2H PRN PRN Reason: Shortness of Breath Last Admin: 06/07/17 16:38 Dose: 3 ml Albuterol/Ipratropium (Duoneb 3 Mg/0.5 Mg (3 Ml) Ud) 3 ml IH [id number] [facility] Last Admin: 06/07/17 14:32 Dose: 3 ml Cefpodoxime Proxetil (Vantin) 200 mg PO Q12 [facility] Last Admin: 06/07/17 10:30 Dose: 200 mg Cyclosporine (Restasis) 1 ea OU BID [facility] Last Admin: 06/07/17 10:35 Dose: Not Given Docusate Sodium (Colace) 100 mg PO DAILY [facility] Last Admin: 06/07/17 10:30 Dose: 100 mg Enoxaparin Sodium (Lovenox) 40 mg SC DAILY [facility] PRN Reason: Protocol Last Admin: 06/07/17 10:29 Dose: 40 mg Sodium Chloride (Sodium Chloride 0.9%) 1,000 mls @ 80 mls/hr IV .[id number] [facility] Last Admin: 06/07/17 10:36 Dose: 80 mls/hr Azithromycin (Zithromax 500mg In Ns) 500 mg in 250 mls @ 167 mls/hr IVPB DAILY [facility] PRN Reason: Protocol Last Admin: 06/07/17 10:29 Dose: 167 mls/hr Ketorolac Tromethamine (Toradol) 15 mg IVP Q8H PRN PRN Reason: Pain Last Admin: 06/05/17 11:29 Dose: 15 mg Methylprednisolone (Solu-Medrol) 30 mg IVP Q12 [facility] Last Admin: 06/07/17 10:29 Dose: 30 mg Brinzolamide [Azopt] (1 Drop (Home Med)) 1 drop OP BID [facility] Last Admin: 06/07/17 10:34 Dose: Not Given Pantoprazole Sodium (Protonix Ec Tab) 40 mg PO 0600 [facility] Last Admin: 06/07/17 05:23 Dose: 40 mg Polyethylene Glycol (Miralax) 17 gm PO BID [facility] Last Admin: 06/07/17 10:29 Dose: 17 gm - Labs Labs: 06/07/17 07:00 06/07/17 07:00 PT 10.4 SECONDS (9.4-12.5) 06/03/17 23:14 INR 0.91 (0.93-1.08) L 06/03/17 23:14 APTT 26.3 Seconds (25.1-36.5) 06/03/17 23:14 - Constitutional Appears: Non-toxic, No Acute Distress, Chronically Ill - Head Exam Head Exam: ATRAUMATIC, NORMOCEPHALIC - Eye Exam Eye Exam: EOMI, Normal appearance, PERRL - ENT Exam ENT Exam: Mucous Membranes Moist - Neck Exam Neck Exam: Normal Inspection - Respiratory Exam Respiratory Exam: Decreased Breath Sounds, Wheezes, NORMAL BREATHING PATTERN - Cardiovascular Exam Cardiovascular Exam: Tachycardia, REGULAR RHYTHM, +S1, +S2, Murmur - GI/Abdominal Exam GI & Abdominal Exam: Soft, Normal Bowel Sounds. absent: Tenderness - Extremities Exam Extremities Exam: absent: Calf Tenderness, Pedal Edema - Neurological Exam Neurological Exam: Alert, Awake, Oriented x3 - Psychiatric Exam Psychiatric exam: Normal Affect, Normal Mood - Skin Skin Exam: Dry, Intact, Normal Color Assessment and Plan - Assessment and Plan (Free Text) Assessment: 66 year old female with F with PMH of glaucoma and COPD admitted for acute bronchitis vs. pneumonia. Murmur noted on exam. Plan: 1) COPD exacerbation - Patient not on home O2; occasionally requiring it for symptomatic relief; still wheezing on exam - Continue PO vantin and Azithromycin day 4 - Duoneb [facility] and PRN - Continue Solumedrol, decreased to 30 mg q12h - O2 via NC 2L 2)Atypical chest pain, r/o ACS; murmur noted on exam - Serial troponins negative, repeat EKG unchanged. - Ordered echo for murmur noted on exam; no prior echo on record; pending 3) Dry eyes and glaucoma - Continue with home medication (Restasis) and brinzolamide. 4) Transaminemia - Abdominal pain improving; associated with cough - Likely 2/2 medication induced; now trending down - Abdominal US done; negative - Viral hepatitis panel negative - Continue to monitor 5) Gait instability and deconditiong - PT evaluation ordered 6) Constipation - Patient complaining of constipation - Continue Miralax and Colace GI/DVT PPx - Protonix - Lovenox Pt seen and discussed in detail with Dr. Burris <Cam Burris - Last Filed: 06/07/17 18:46> Objective - Vital Signs/Intake and Output Vital Signs (last 24 hours): Temp Pulse Resp BP Pulse Ox 98.3 F 115 H 20 152/89 H 95 06/07/17 14:00 06/07/17 14:00 06/07/17 14:00 06/07/17 14:00 06/07/17 14:00 Intake and Output: 06/07/17 06/07/17 06:59 18:59 Intake Total 840 720 Balance 840 720 - Medications Medications: Current Medications Albuterol/Ipratropium (Duoneb 3 Mg/0.5 Mg (3 Ml) Ud) 3 ml IH Q2H PRN PRN Reason: Shortness of Breath Last Admin: 06/07/17 16:38 Dose: 3 ml Albuterol/Ipratropium (Duoneb 3 Mg/0.5 Mg (3 Ml) Ud) 3 ml IH [id number] [facility] Last Admin: 06/07/17 14:32 Dose: 3 ml Cefpodoxime Proxetil (Vantin) 200 mg PO Q12 [facility] Last Admin: 06/07/17 10:30 Dose: 200 mg Cyclosporine (Restasis) 1 ea OU BID [facility] Last Admin: 06/07/17 18:17 Dose: Not Given Docusate Sodium (Colace) 100 mg PO DAILY [facility] Last Admin: 06/07/17 10:30 Dose: 100 mg Enoxaparin Sodium (Lovenox) 40 mg SC DAILY [facility] PRN Reason: Protocol Last Admin: 06/07/17 10:29 Dose: 40 mg Sodium Chloride (Sodium Chloride 0.9%) 1,000 mls @ 80 mls/hr IV .[id number] [facility] Last Admin: 06/07/17 18:18 Dose: 80 mls/hr Azithromycin (Zithromax 500mg In Ns) 500 mg in 250 mls @ 167 mls/hr IVPB DAILY [facility] PRN Reason: Protocol Last Admin: 06/07/17 10:29 Dose: 167 mls/hr Ketorolac Tromethamine (Toradol) 15 mg IVP Q8H PRN PRN Reason: Pain Last Admin: 06/05/17 11:29 Dose: 15 mg Methylprednisolone (Solu-Medrol) 30 mg IVP Q12 [facility] Last Admin: 06/07/17 10:29 Dose: 30 mg Brinzolamide [Azopt] (1 Drop (Home Med)) 1 drop OP BID [facility] Last Admin: 06/07/17 18:16 Dose: Not Given Pantoprazole Sodium (Protonix Ec Tab) 40 mg PO 0600 [facility] Last Admin: 06/07/17 05:23 Dose: 40 mg Polyethylene Glycol (Miralax) 17 gm PO BID [facility] Last Admin: 06/07/17 18:17 Dose: 17 gm - Labs Labs: 06/07/17 07:00 06/07/17 07:00 PT 10.4 SECONDS (9.4-12.5) 06/03/17 23:14 INR 0.91 (0.93-1.08) L 06/03/17 23:14 APTT 26.3 Seconds (25.1-36.5) 06/03/17 23:14 Attending/Attestation - Attestation I have personally seen and examined this patient.: Yes I have fully participated in the care of the patient.: Yes I have reviewed all pertinent clinical information, including history, physical exam and plan: Yes Notes (Text): 06/07/17 18:44 66 year old female with past medical history of COPD who is admitted with COPD exacerbation. Symptoms are improving with tapering iv steroids, duonebs and antibiotics. PT evaluation was appreciated. Patient is out of bed to chair this morning. Abdominal pain has improved. LFTs are improving as well. US abdomen and hepatitis panel were negative. Serial cardiac enzymes were negative and ACS was ruled out. Echocardiogram is pending. Overall patient's symptoms are improving. Likely d/c planning in 24-48 hrs if no acute issues. Cam Burris MD Hospitalist.
[2017-06-07] MEDS ORDERED: Albuterol-Ipratrop 3 mg / 0.5 (3 ml) UD IH STA (21:57)
[2017-06-08] MEDS: Sodium Chloride 0.9% 1,000 ML IV SCH (01:57)
[2017-06-08] MEDS: Albuterol-Ipratrop 3 mg / 0.5 (3 ml) UD IH SCH ×4 (03:20→20:18)
[2017-06-08] MEDS: Pantoprazole 40 mg EC Tab PO SCH (05:13)
[2017-06-08 07:07] LABS: HEMOGLOBIN 12.6 g/dL (12.0-16.0); MEAN CELL VOLUME 95.5 fl (80.0-105.0); MEAN CORPUSCULAR HEMOGLOBIN 31.8 pg (25.0-35.0); MEAN CORPUSCULAR HGB CONC 33.3 g/dl (31.0-37.0); MEAN PLATELET VOLUME 9.3 fl (7.0-11.0); RBC 3.96 10^6/uL (3.5-6.1); RED CELL DISTRIBUTION WIDTH 12.9 % (11.5-14.5); WHITE BLOOD COUNT 11.7 10^3/ul (4.5-11.0)
[2017-06-08 07:26] LABS: ALB/GLOB RATIO 1.4 (1.1-1.8); ALBUMIN 3.3 g/dL (3.0-4.8); ALT/SGPT 136 U/L (7-56); AST/SGOT 33 U/L (14-36); BLOOD UREA NITROGEN 16 mg/dL (7-21); GFR AFRICAN-AMERICAN > 60; GFR NON-AFRICAN AMERICAN > 60
[2017-06-08] MEDS: Enoxaparin 40 mg Syringe SC SCH (10:15)
[2017-06-08] MEDS: Cefpodoxime (Vantin) 200 mg Tab PO SCH ×2 (10:16→21:43)
[2017-06-08] MEDS: MethylPREDNISolone 40 mg Vial IVP SCH ×2 (10:17→21:43)
[2017-06-08] MEDS: Azithromycin 500MG/NS 250ml 500 MG/250 ML BAG IVPB SCH (10:18)
[2017-06-08] MEDS: POLYETHYLENE GLYCOL 3350 17 GM/Dose PACKET PO SCH ×2 (10:19→18:38)
[2017-06-08] MEDS: BRINZOLAMIDE OP SCH ×2 (10:22→18:37)
[2017-06-08] MEDS: cycloSPORINE 0.05 % Opth Emulsion UD OU SCH ×2 (10:23→18:38)
[2017-06-08] MEDS ORDERED: Bisacodyl 5mg EC Tab PO ONE (11:10)
--- NOTE | 2017-06-08 15:46 | CP.PCM.PN ---
<Roxana Sanchez - Last Filed: 06/08/17 18:32> Subjective - Date & Time of Evaluation Date of Evaluation: 06/08/17 Time of Evaluation: 07:00 - Subjective Subjective: Roxana Sanchez DO, PGY-1: Hospitalist Service Patient seen and examined at bedside. Patient reports worsening dyspnea, especially overnight. Night resident reports patient complained of dyspnea and required a stat treatment of duonebs. Currently, patient reports same baseline dyspnea, especially with walking. Objective - Vital Signs/Intake and Output Vital Signs (last 24 hours): Temp Pulse Resp BP Pulse Ox 97.6 F 100 H 18 134/82 92 L 06/08/17 08:43 06/08/17 08:43 06/08/17 08:43 06/08/17 08:43 06/08/17 08:43 Intake and Output: 06/08/17 06/08/17 06:59 18:59 Intake Total 1271 420 Balance 1271 420 - Medications Medications: Current Medications Albuterol/Ipratropium (Duoneb 3 Mg/0.5 Mg (3 Ml) Ud) 3 ml IH Q2H PRN PRN Reason: Shortness of Breath Last Admin: 06/07/17 16:38 Dose: 3 ml Albuterol/Ipratropium (Duoneb 3 Mg/0.5 Mg (3 Ml) Ud) 3 ml IH [id number] [facility] Last Admin: 06/08/17 13:11 Dose: 3 ml Cefpodoxime Proxetil (Vantin) 200 mg PO Q12 [facility] Last Admin: 06/08/17 10:16 Dose: 200 mg Cyclosporine (Restasis) 1 ea OU BID [facility] Last Admin: 06/08/17 10:23 Dose: 1 ea Docusate Sodium (Colace) 100 mg PO BID [facility] Enoxaparin Sodium (Lovenox) 40 mg SC DAILY [facility] PRN Reason: Protocol Last Admin: 06/08/17 10:15 Dose: 40 mg Azithromycin (Zithromax 500mg In Ns) 500 mg in 250 mls @ 167 mls/hr IVPB DAILY [facility] PRN Reason: Protocol Last Admin: 06/08/17 10:18 Dose: 167 mls/hr Ketorolac Tromethamine (Toradol) 15 mg IVP Q8H PRN PRN Reason: Pain Last Admin: 06/05/17 11:29 Dose: 15 mg Methylprednisolone (Solu-Medrol) 20 mg IVP Q12 [facility] Last Admin: 06/08/17 10:17 Dose: 20 mg Brinzolamide [Azopt] (1 Drop (Home Med)) 1 drop OP BID [facility] Last Admin: 06/08/17 10:22 Dose: 1 drop Pantoprazole Sodium (Protonix Ec Tab) 40 mg PO 0600 [facility] Last Admin: 06/08/17 05:13 Dose: 40 mg Polyethylene Glycol (Miralax) 17 gm PO BID [facility] Last Admin: 06/08/17 10:19 Dose: Not Given - Labs Labs: 06/08/17 06:30 06/08/17 06:30 PT 10.4 SECONDS (9.4-12.5) 06/03/17 23:14 INR 0.91 (0.93-1.08) L 06/03/17 23:14 APTT 26.3 Seconds (25.1-36.5) 06/03/17 23:14 - Constitutional Appears: Non-toxic, No Acute Distress, Chronically Ill - Head Exam Head Exam: ATRAUMATIC, NORMOCEPHALIC - Eye Exam Eye Exam: EOMI, Normal appearance - ENT Exam ENT Exam: Mucous Membranes Moist, Normal Oropharynx - Neck Exam Neck Exam: Normal Inspection - Respiratory Exam Respiratory Exam: Wheezes (bilaterally). absent: Accessory Muscle Use - Cardiovascular Exam Cardiovascular Exam: Tachycardia, +S1, +S2 Additional comments: (2/6 intensity, increases on deep inspiration, best heard over left 5th intercostal space) - GI/Abdominal Exam GI & Abdominal Exam: Soft, Normal Bowel Sounds - Back Exam Back Exam: NORMAL INSPECTION. absent: CVA tenderness (L), CVA tenderness (R) - Neurological Exam Neurological Exam: Alert, Awake, Oriented x3 - Psychiatric Exam Psychiatric exam: Normal Affect, Normal Mood - Skin Skin Exam: Dry, Intact, Normal Color, Warm Assessment and Plan - Assessment and Plan (Free Text) Assessment: 66 year old female with F with PMH of glaucoma and COPD admitted for acute bronchitis vs. pneumonia. Murmur noted on exam. Plan: 1) COPD exacerbation - During 6 minute walk test patient desaturated to 88% with HR up to 140 bpm. - Continue PO vantin and Azithromycin day 5 - Duoneb [facility] and PRN - Continue Solumedrol, decreased to 30 mg q12h - O2 via NC 2L 2)Atypical chest pain, r/o ACS; murmur noted on exam - Serial troponins negative, repeat EKG unchanged. - Transthoracic echocardiogram performed, interpretation pending 3) Dry eyes and glaucoma - Continue with home medication (Restasis) and brinzolamide. 4) Transaminemia - Abdominal pain improving; associated with cough - Likely 2/2 medication induced; now trending down - Abdominal US done; negative - Viral hepatitis panel negative - Continue to monitor 5) Gait instability and deconditiong - PT evaluation recommend no services for gait, but 6 minute walk test reveals patient will need home oxygen therapy. 6) Constipation - Patient complaining of constipation - Continue Miralax and Colace GI/DVT PPx - Protonix - Lovenox <Cathy Portillo - Last Filed: 06/11/17 13:24> Objective - Vital Signs/Intake and Output Vital Signs (last 24 hours): Temp Pulse Resp BP Pulse Ox 98.3 F 109 H 20 103/56 L 94 L 06/10/17 14:00 06/10/17 14:00 06/10/17 14:00 06/10/17 14:00 06/10/17 14:00 - Labs Labs: 06/10/17 09:40 06/10/17 09:40 PT 10.4 SECONDS (9.4-12.5) 06/03/17 23:14 INR 0.91 (0.93-1.08) L 06/03/17 23:14 APTT 26.3 Seconds (25.1-36.5) 06/03/17 23:14 Attending/Attestation - Attestation I have personally seen and examined this patient.: Yes I have fully participated in the care of the patient.: Yes I have reviewed all pertinent clinical information, including history, physical exam and plan: Yes Notes (Text): 06/11/17 13:21 Medical record note made by the resident after discussion with my direction and input after the patient was personally seen and examined by me. I have reviewed the chart and agree that the record accurately reflects by personal performance of the history, physical exam, data review, and medical decision-making, in the course for the patient. I have also personally directed the plan of care. 66 year old female with PMH of COPD is admitted with COPD exacerbation.Cough and dyspnea is improving.Patient oxygen saturation drop less than 88 with 6 minutes walking and she also become tachycardiac.She will need home oxygen prior to discharge. Echo results are pending.
[2017-06-08 16:17] VITALS: RESP 20
--- NOTE | 2017-06-08 18:56 | CARD ---
APPROVED REPORT EXAM: Two-dimensional and M-mode echocardiogram with Doppler and color Doppler. INDICATION [place] 2D DIMENSIONS Left Atrium (2D)2.9 (1.6-4.0cm)IVSd0.9 (0.7-1.1cm) LVDd3.3 (3.9-5.9cm)PWd1.0 (0.7-1.1cm) LVDs2.6 (2.5-4.0cm)FS (%) 21.5 % LVEF (%)44.6 (>50%) M-Mode DIMENSIONS Aortic Root2.60 (2.2-3.7cm)Aortic Cusp Exc.1.30 (1.5-2.0cm) Aortic Valve AoV Peak Uvuwcgmt737.0cm/Mallory Peak GR.10mmHg Mitral Valve E/A ratio0.0 TDI E/Lateral E'0.0E/Medial E'0.0 Pulmonary Valve PV Peak Wuqiewla73.4cm/sPV Peak Grad.3mmHg Tricuspid Valve TR Peak [id number]/sRAP [id number] Peak Gr.21mmHg [id number] LEFT VENTRICLE The left ventricle is normal size. There is normal left ventricular wall thickness. The systolic function is mildly impaired. There is global hypokinesis of the left ventricle. Transmitral Doppler flow pattern is Grade I-abnormal relaxation pattern. No left ventricle thrombus noted on this study. RIGHT VENTRICLE The right ventricle is normal size. There is normal right ventricular wall thickness. The right ventricular systolic function is normal. ATRIA The left atrium size is normal. The right atrium size is normal. AORTIC VALVE The non coronary cusp is prolapsed. There is no aortic valvular stenosis. MITRAL VALVE The mitral valve is normal in structure. Mitral regurgitation is mild. TRICUSPID VALVE The tricuspid valve is normal in structure. GREAT VESSELS The aortic root is normal in size. The IVC is normal in size and collapses >50% with inspiration. PERICARDIAL EFFUSION There is a trace circumferential pericardial effusion. <Conclusion> The left ventricle is normal size. There is normal left ventricular wall thickness. The systolic function is mildly impaired. There is global hypokinesis of the left ventricle. Transmitral Doppler flow pattern is Grade I-abnormal relaxation pattern. Mitral regurgitation is mild. There is a trace circumferential pericardial effusion.
[2017-06-09] MEDS: Albuterol-Ipratrop 3 mg / 0.5 (3 ml) UD IH SCH ×4 (01:56→20:45)
[2017-06-09] MEDS: Pantoprazole 40 mg EC Tab PO SCH (05:45)
[2017-06-09 07:26] LABS: HEMOGLOBIN 13.7 g/dL (12.0-16.0); MEAN CELL VOLUME 95.2 fl (80.0-105.0); MEAN CORPUSCULAR HEMOGLOBIN 31.4 pg (25.0-35.0); MEAN CORPUSCULAR HGB CONC 32.9 g/dl (31.0-37.0); MEAN PLATELET VOLUME 8.9 fl (7.0-11.0); RBC 4.37 10^6/uL (3.5-6.1)
[2017-06-09 07:42] LABS: ALB/GLOB RATIO 1.5 (1.1-1.8); ALBUMIN 3.7 g/dL (3.0-4.8); ALT/SGPT 112 U/L (7-56); AST/SGOT 25 U/L (14-36); BLOOD UREA NITROGEN 18 mg/dL (7-21); CALCIUM 9.9 mg/dL (8.4-10.5); GFR AFRICAN-AMERICAN > 60; GFR NON-AFRICAN AMERICAN > 60
[2017-06-09] MEDS: MethylPREDNISolone 40 mg Vial IVP SCH (09:59)
[2017-06-09] MEDS: Enoxaparin 40 mg Syringe SC SCH (09:59)
[2017-06-09] MEDS: POLYETHYLENE GLYCOL 3350 17 GM/Dose PACKET PO SCH ×2 (09:59→18:00)
[2017-06-09] MEDS: Cefpodoxime (Vantin) 200 mg Tab PO SCH ×2 (10:00→22:59)
[2017-06-09] MEDS: Azithromycin 500MG/NS 250ml 500 MG/250 ML BAG IVPB SCH (10:00)
[2017-06-09] MEDS: cycloSPORINE 0.05 % Opth Emulsion UD OU SCH ×2 (10:00→17:07)
[2017-06-09] MEDS: BRINZOLAMIDE OP SCH ×2 (10:01→17:07)
--- NOTE | 2017-06-09 16:33 | CP.PCM.PN ---
<Roxana Sanchez - Last Filed: 06/09/17 16:50> Subjective - Date & Time of Evaluation Date of Evaluation: 06/09/17 Time of Evaluation: 08:00 - Subjective Subjective: Roxana Sanchez DO, PGY-1: Hospitalist Service Patient seen and examined at bedside. Patient denies chest pain, nausea, vomiting, but admits to persistent dyspnea. Nurse reports no events overnight. Objective - Vital Signs/Intake and Output Vital Signs (last 24 hours): Temp Pulse Resp BP Pulse Ox 97.8 F 114 H 20 139/83 95 06/09/17 07:51 06/09/17 12:18 06/09/17 07:51 06/09/17 12:18 06/09/17 07:51 Intake and Output: 06/09/17 06/09/17 06:59 18:59 Intake Total 540 600 Balance 540 600 - Medications Medications: Current Medications Albuterol/Ipratropium (Duoneb 3 Mg/0.5 Mg (3 Ml) Ud) 3 ml IH Q2H PRN PRN Reason: Shortness of Breath Last Admin: 06/07/17 16:38 Dose: 3 ml Albuterol/Ipratropium (Duoneb 3 Mg/0.5 Mg (3 Ml) Ud) 3 ml IH [id number] [facility] Last Admin: 06/09/17 14:50 Dose: 3 ml Cefpodoxime Proxetil (Vantin) 200 mg PO Q12 [facility] Last Admin: 06/09/17 10:00 Dose: 200 mg Cyclosporine (Restasis) 1 ea OU BID [facility] Last Admin: 06/09/17 10:00 Dose: 1 ea Diphenhydramine HCl (Benadryl) 25 mg PO HS PRN PRN Reason: Insomnia Last Admin: 06/08/17 23:37 Dose: 25 mg Docusate Sodium (Colace) 100 mg PO BID [facility] Last Admin: 06/09/17 10:00 Dose: 100 mg Enoxaparin Sodium (Lovenox) 40 mg SC DAILY [facility] PRN Reason: Protocol Last Admin: 06/09/17 09:59 Dose: 40 mg Azithromycin (Zithromax 500mg In Ns) 500 mg in 250 mls @ 167 mls/hr IVPB DAILY [facility] PRN Reason: Protocol Last Admin: 06/09/17 10:00 Dose: 167 mls/hr Ketorolac Tromethamine (Toradol) 15 mg IVP Q8H PRN PRN Reason: Pain Last Admin: 06/05/17 11:29 Dose: 15 mg Lisinopril (Zestril) 5 mg PO DAILY [facility] Last Admin: 06/09/17 12:18 Dose: 5 mg Brinzolamide [Azopt] (1 Drop (Home Med)) 1 drop OP BID [facility] Last Admin: 06/09/17 10:01 Dose: 1 drop Pantoprazole Sodium (Protonix Ec Tab) 40 mg PO 0600 [facility] Last Admin: 06/09/17 05:45 Dose: 40 mg Polyethylene Glycol (Miralax) 17 gm PO BID [facility] Last Admin: 06/09/17 09:59 Dose: Not Given Prednisone (Prednisone Tab) 20 mg PO DAILY [facility] - Labs Labs: 06/09/17 07:22 06/09/17 07:22 PT 10.4 SECONDS (9.4-12.5) 06/03/17 23:14 INR 0.91 (0.93-1.08) L 06/03/17 23:14 APTT 26.3 Seconds (25.1-36.5) 06/03/17 23:14 - Constitutional Appears: No Acute Distress, Chronically Ill - Head Exam Head Exam: ATRAUMATIC, NORMOCEPHALIC - Eye Exam Eye Exam: EOMI, Normal appearance - ENT Exam ENT Exam: Mucous Membranes Moist, Normal Oropharynx - Neck Exam Neck Exam: Normal Inspection - Respiratory Exam Respiratory Exam: NORMAL BREATHING PATTERN. absent: Accessory Muscle Use Additional comments: decreased breath sounds bilaterally at the lung bases - Cardiovascular Exam Cardiovascular Exam: RRR, +S1, +S2 - GI/Abdominal Exam GI & Abdominal Exam: Soft, Normal Bowel Sounds. absent: Guarding, Rebound - Extremities Exam Extremities Exam: Normal Inspection. absent: Calf Tenderness - Back Exam Back Exam: NORMAL INSPECTION. absent: CVA tenderness (L), CVA tenderness (R) - Neurological Exam Neurological Exam: Alert, Awake, Oriented x3 - Psychiatric Exam Psychiatric exam: Normal Affect, Normal Mood - Skin Skin Exam: Dry, Intact, Normal Color, Warm Assessment and Plan - Assessment and Plan (Free Text) Assessment: 66 year old female with female with PMH of glaucoma and COPD admitted for acute bronchitis vs. pneumonia. Plan: 1) COPD exacerbation - During 6 minute walk test patient desaturated to 88% with HR up to 140 bpm. - Continue PO vantin and Azithromycin day 6 - Duoneb [facility] and PRN - Discontinue IV steroids, and continue 20 mg PO BID of Prednisone - O2 via NC 2-3L with target O2 saturation above 92% 2) Persistent hypoxia. - Transthoracic echocardiogram performed showed LV normal size with LV wall thickness. Systolic function is mildly impaired with EF 44.6%, global hypokinesis of the LV; transmitral doppler flow is grade I abnormal relaxation pattern, MR is mild, trace circumferential pericardial effusion - Cardiology consulted given persistent hypoxia, tachycardia, and echocardiogram findings, Dr. Figueroa. - One stat dose of Lasix 20 mg IVP administered - BNP ordered and D-dimer 3) Dry eyes and glaucoma - Continue with home medication (Restasis) and brinzolamide. 4) Elevated LFTs - Likely secondary to Azithromycin or hepatic congestion - Viral hepatitis panel negative - Continue to monitor 5) Gait instability and deconditioning - PT evaluation recommend no services for gait, but 6 minute walk test reveals patient will need home oxygen therapy. 6) Constipation, resolved - Continue Miralax and Colace GI/DVT PPx - Protonix - Lovenox <Cathy Portillo - Last Filed: 06/11/17 13:27> Objective - Vital Signs/Intake and Output Vital Signs (last 24 hours): Temp Pulse Resp BP Pulse Ox 98.3 F 109 H 20 103/56 L 94 L 06/10/17 14:00 06/10/17 14:00 06/10/17 14:00 06/10/17 14:00 06/10/17 14:00 - Labs Labs: 06/10/17 09:40 06/10/17 09:40 PT 10.4 SECONDS (9.4-12.5) 06/03/17 23:14 INR 0.91 (0.93-1.08) L 06/03/17 23:14 APTT 26.3 Seconds (25.1-36.5) 06/03/17 23:14 Attending/Attestation - Attestation I have personally seen and examined this patient.: Yes I have fully participated in the care of the patient.: Yes I have reviewed all pertinent clinical information, including history, physical exam and plan: Yes Notes (Text): 06/11/17 13:25 Medical record note made by the resident after discussion with my direction and input after the patient was personally seen and examined by me. I have reviewed the chart and agree that the record accurately reflects by personal performance of the history, physical exam, data review, and medical decision-making, in the course for the patient. I have also personally directed the plan of care. 66 year old female with PMH of COPD is admitted with COPD exacerbation.Cough and dyspnea is improving. Echoshowed EF 44% ,LVH and minimal pericardial effusion.We will start patient on low dose of Lisinopril .Patient has basal crackle, will give 20 mg IV lasix. We will also get Cardiology evaluation. Management plan was discussed in detail with patient. Education was provided.
[2017-06-10] MEDS: Albuterol-Ipratrop 3 mg / 0.5 (3 ml) UD IH SCH ×3 (01:32→13:32)
[2017-06-10] MEDS: Pantoprazole 40 mg EC Tab PO SCH (06:39)
[2017-06-10] MEDS: Azithromycin 500MG/NS 250ml 500 MG/250 ML BAG IVPB SCH (09:26)
[2017-06-10] MEDS: Cefpodoxime (Vantin) 200 mg Tab PO SCH (09:26)
[2017-06-10] MEDS: Enoxaparin 40 mg Syringe SC SCH (09:26)
[2017-06-10] MEDS: BRINZOLAMIDE OP SCH ×2 (09:27→18:00)
[2017-06-10] MEDS: cycloSPORINE 0.05 % Opth Emulsion UD OU SCH ×2 (09:27→18:00)
[2017-06-10] MEDS: POLYETHYLENE GLYCOL 3350 17 GM/Dose PACKET PO SCH ×2 (09:27→18:00)
[2017-06-10 09:47] LABS: BASO # 0.01 K/mm3 (0.0-2.0); BASO % 0.1 % (0.0-3.0); EOS # 0.1 (0.0-0.7); EOS % 0.4 % (1.5-5.0); GRAN # 9.35 (1.4-6.5); GRAN % 73.4 % (50.0-68.0); HEMOGLOBIN 14.8 g/dL (12.0-16.0); LYMPH # 2.5 (1.2-3.4); LYMPH % 19.3 % (22.0-35.0); MEAN CELL VOLUME 94.3 fl (80.0-105.0); MEAN CORPUSCULAR HEMOGLOBIN 32.2 pg (25.0-35.0); MEAN CORPUSCULAR HGB CONC 34.1 g/dl (31.0-37.0); MEAN PLATELET VOLUME 9.2 fl (7.0-11.0); MONO # 0.9 (0.1-0.6); MONO % 6.8 % (1.0-6.0); RBC 4.6 10^6/uL (3.5-6.1); WHITE BLOOD COUNT 12.7 10^3/ul (4.5-11.0)
[2017-06-10 09:54] LABS: ALB/GLOB RATIO 1.5 (1.1-1.8); ALBUMIN 3.9 g/dL (3.0-4.8); ALT/SGPT 89 U/L (7-56); AST/SGOT 21 U/L (14-36); BLOOD UREA NITROGEN 19 mg/dL (7-21); CALCIUM 10.1 mg/dL (8.4-10.5); GFR AFRICAN-AMERICAN > 60; GFR NON-AFRICAN AMERICAN > 60
[2017-06-10] MEDS ORDERED: Potassium Chloride 20 mEq ER Tab PO ONE (10:12)
--- NOTE | 2017-06-10 13:18 | CP.PCM.DIS ---
<Roxana Sanchez - Last Filed: 06/10/17 16:38> Provider - Provider Date of Admission: 06/05/17 12:04 Attending physician: Cam Burris MD Primary care physician: Chelsea Woodard MD Consults: Dr. Figueroa Time Spent in preparation of Discharge (in minutes): 45 Diagnosis - Discharge Diagnosis (1) Asthmatic bronchitis Status: Acute Priority: High Hospital Course - Lab Results Lab Results: Most Recent Lab Values WBC 12.7 10^3/ul (4.5-11.0) H 06/10/17 09:40 RBC 4.60 10^6/uL (3.5-6.1) 06/10/17 09:40 Hgb 14.8 g/dL (12.0-16.0) 06/10/17 09:40 Hct 43.4 % (36.0-48.0) 06/10/17 09:40 MCV 94.3 fl (80.0-105.0) 06/10/17 09:40 MCH 32.2 pg (25.0-35.0) 06/10/17 09:40 MCHC 34.1 g/dl (31.0-37.0) 06/10/17 09:40 RDW 13.0 % (11.5-14.5) 06/10/17 09:40 Plt Count 337 10^3/uL (120.0-450.0) 06/10/17 09:40 MPV 9.2 fl (7.0-11.0) 06/10/17 09:40 Gran % 73.4 % (50.0-68.0) H 06/10/17 09:40 Lymph % (Auto) 19.3 % (22.0-35.0) L 06/10/17 09:40 [place] % (Auto) 6.8 % (1.0-6.0) H 06/10/17 09:40 Eos % (Auto) 0.4 % (1.5-5.0) L 06/10/17 09:40 Baso % (Auto) 0.1 % (0.0-3.0) 06/10/17 09:40 Gran # 9.35 (1.4-6.5) H 06/10/17 09:40 Lymph # (Auto) 2.5 (1.2-3.4) 06/10/17 09:40 [place] # (Auto) 0.9 (0.1-0.6) H 06/10/17 09:40 Eos # (Auto) 0.1 (0.0-0.7) 06/10/17 09:40 Baso # (Auto) 0.01 K/mm3 (0.0-2.0) 06/10/17 09:40 PT 10.4 SECONDS (9.4-12.5) 06/03/17 23:14 INR 0.91 (0.93-1.08) L 06/03/17 23:14 APTT 26.3 Seconds (25.1-36.5) 06/03/17 23:14 D-Dimer, Quantitative 297 ng/mL (0-243) H 06/10/17 08:00 pO2 35 mm/Hg (30-55) 06/03/17 23:14 VBG pH 7.36 (7.32-7.43) 06/03/17 23:14 VBG pCO2 55.0 (40-60) 06/03/17 23:14 VBG HCO3 31.1 mmol/l (21-28) H 06/03/17 23:14 VBG Total CO2 32.8 mmol.L (22-28) H 06/03/17 23:14 VBG O2 Sat (Calc) 76.0 % (40-65) H 06/03/17 23:14 VBG Base Excess 4.2 mmol/L (0.0-2.0) H 06/03/17 23:14 VBG Potassium 4.0 mmol/L (3.6-5.2) 06/03/17 23:14 Sodium 135.0 mmol/L (132-148) 06/03/17 23:14 Chloride 100.0 mmol/L (98-107) 06/03/17 23:14 Glucose 108 mg/dl (65-105) H 06/03/17 23:14 Lactate 1.1 mmol/L (0.7-2.1) 06/03/17 23:14 FiO2 21.0 % 06/03/17 23:14 Sodium 138 mmol/L (132-148) 06/10/17 09:40 Potassium 3.5 mmol/L (3.6-5.0) L 06/10/17 09:40 Chloride 94 mmol/L (98-107) L 06/10/17 09:40 Carbon Dioxide 37 mmol/L (21-33) H 06/10/17 09:40 Anion Gap 10 (10-20) 06/10/17 09:40 BUN 19 mg/dL (7-21) 06/10/17 09:40 Creatinine 0.9 mg/dl (0.7-1.2) 06/10/17 09:40 Est GFR ( Amer) > 60 06/10/17 09:40 Est GFR (Non-Af Amer) > 60 06/10/17 09:40 Random Glucose 100 mg/dL (70-110) 06/10/17 09:40 Calcium 10.1 mg/dL (8.4-10.5) 06/10/17 09:40 Phosphorus 2.8 mg/dL (2.5-4.5) 06/05/17 06:30 Magnesium 2.2 mg/dL (1.7-2.2) 06/05/17 06:30 Total Bilirubin 0.2 mg/dL (0.2-1.3) 06/10/17 09:40 AST 21 U/L (14-36) 06/10/17 09:40 ALT 89 U/L (7-56) H 06/10/17 09:40 Alkaline Phosphatase 56 U/L (38-126) 06/10/17 09:40 Lactate Dehydrogenase 581 U/L (333-699) 06/05/17 06:30 Total Creatine Kinase 117 U/L (35-230) 06/05/17 06:30 Troponin I < 0.01 ng/mL 06/05/17 12:48 NT-Pro-B Natriuret Pep 756 pg/mL (0-450) H 06/09/17 18:38 Total Protein 6.5 g/dL (5.8-8.3) 06/10/17 09:40 Albumin 3.9 g/dL (3.0-4.8) 06/10/17 09:40 Globulin 2.6 gm/dL 06/10/17 09:40 Albumin/Globulin Ratio 1.5 (1.1-1.8) 06/10/17 09:40 Procalcitonin < 0.05 NG/ML (0.19-0.49) L 06/03/17 23:14 TSH 3rd Generation 1.54 mIU/mL (0.46-4.68) 06/09/17 07:00 Venous Blood Potassium 4.0 mmol/L (3.6-5.2) 06/03/17 23:14 Hepatitis A IgM Ab Negative (NEGATIVE) 06/06/17 06:30 Hep Bs Antigen Negative (NEGATIVE) 06/06/17 06:30 Hep B Core IgM Ab Negative (NEGATIVE) 06/06/17 06:30 Hepatitis C Antibody Negative (NEGATIVE) 06/06/17 06:30 Influenza Typ A,B (EIA) Negative for flu a/b (NEGATIVE) 06/03/17 23:50 - Hospital Course Hospital Course: 66 year old female with a past medical history of COPD, asthma, glaucoma, and dry eyes who presented with 3 days of worsening dyspnea and refractory to home COPD medications. Patient was started on IV antibiotics, IV steroids, and on antibiotics. Patient's wheezing improved throughout her hospital course with a steroid taper. Patient underwent 6 minute walk test and desaturated to 88% with HR as high as 140 with walking 150 feet. Social work and case management procured home oxygen for the patient. The patient's hospital course was complicated by persistent tachycardia and dyspnea with exertion warranting a baseline echocardiogram that showed an EF of 45 and a trace circumferential pericardial friction rub. Cardiology was consulted and thought the patient's respiratory status and exam findings were consistent with advanced COPD, not CHF. The patient was discharged with the a Medrol dose pack, Protonix, Lisinopril, and a fluticasone inhaler given her insurance could not reasonably cover the cost of a budesonide inhaler. - Date & Time of H&P Date of H&P: 06/10/17 Time of H&P: 16:01 Discharge Exam - Head Exam Head Exam: ATRAUMATIC, NORMOCEPHALIC - Eye Exam Eye Exam: EOMI, Normal appearance - ENT Exam ENT Exam: Mucous Membranes Moist - Neck Exam Neck exam: Normal Inspection - Respiratory Exam Respiratory Exam: Clear to PA & Lateral, NORMAL BREATHING PATTERN. absent: Accessory Muscle Use - Cardiovascular Exam Cardiovascular Exam: RRR, +S1, +S2 - GI/Abdominal Exam GI & Abdominal Exam: Normal Bowel Sounds - Back Exam Back exam: NORMAL INSPECTION. absent: CVA tenderness (L), CVA tenderness (R) - Neurological Exam Neurological exam: Alert, CN II-XII Intact, Oriented x3 - Psychiatric Exam Psychiatric exam: Normal Affect, Normal Mood - Skin Skin Exam: Dry, Intact, Normal Color, Warm Discharge Plan - Follow Up Plan Condition: FAIR Disposition: HOME/ ROUTINE Instructions: Chronic Obstructive Pulmonary Disease (COPD), Including Emphysema , Asthma in Adults, Oxygen Therapy, Adult (DC), Asthma (DC), Asthma (GEN) Additional Instructions: 1) Patient to follow up with PMD within one week of the date of discharge. 2) Patient to take Medrol dose pack as prescribed along with Protonix 40 mg as directed. 3) Patient to follow up with PMD within one week and get kidney function checked. 4) Patient discharged with Medrol dose pack, Lisinopril 5 mg, Protonix 6 tablets , and Budesonide inhaler. Referrals: Chelsea Woodard MD [Primary Care Provider] - <Cathy Portillo - Last Filed: 06/11/17 13:30> Provider - Provider Date of Admission: 06/05/17 12:04 Attending physician: Cam Burris MD Primary care physician: Chelsea Woodard MD Hospital Course - Lab Results Lab Results: Most Recent Lab Values WBC 12.7 10^3/ul (4.5-11.0) H 06/10/17 09:40 RBC 4.60 10^6/uL (3.5-6.1) 06/10/17 09:40 Hgb 14.8 g/dL (12.0-16.0) 06/10/17 09:40 Hct 43.4 % (36.0-48.0) 06/10/17 09:40 MCV 94.3 fl (80.0-105.0) 06/10/17 09:40 MCH 32.2 pg (25.0-35.0) 06/10/17 09:40 MCHC 34.1 g/dl (31.0-37.0) 06/10/17 09:40 RDW 13.0 % (11.5-14.5) 06/10/17 09:40 Plt Count 337 10^3/uL (120.0-450.0) 06/10/17 09:40 MPV 9.2 fl (7.0-11.0) 06/10/17 09:40 Gran % 73.4 % (50.0-68.0) H 06/10/17 09:40 Lymph % (Auto) 19.3 % (22.0-35.0) L 06/10/17 09:40 [place] % (Auto) 6.8 % (1.0-6.0) H 06/10/17 09:40 Eos % (Auto) 0.4 % (1.5-5.0) L 06/10/17 09:40 Baso % (Auto) 0.1 % (0.0-3.0) 06/10/17 09:40 Gran # 9.35 (1.4-6.5) H 06/10/17 09:40 Lymph # (Auto) 2.5 (1.2-3.4) 06/10/17 09:40 [place] # (Auto) 0.9 (0.1-0.6) H 06/10/17 09:40 Eos # (Auto) 0.1 (0.0-0.7) 06/10/17 09:40 Baso # (Auto) 0.01 K/mm3 (0.0-2.0) 06/10/17 09:40 PT 10.4 SECONDS (9.4-12.5) 06/03/17 23:14 INR 0.91 (0.93-1.08) L 06/03/17 23:14 APTT 26.3 Seconds (25.1-36.5) 06/03/17 23:14 D-Dimer, Quantitative 297 ng/mL (0-243) H 06/10/17 08:00 pO2 35 mm/Hg (30-55) 06/03/17 23:14 VBG pH 7.36 (7.32-7.43) 06/03/17 23:14 VBG pCO2 55.0 (40-60) 06/03/17 23:14 VBG HCO3 31.1 mmol/l (21-28) H 06/03/17 23:14 VBG Total CO2 32.8 mmol.L (22-28) H 06/03/17 23:14 VBG O2 Sat (Calc) 76.0 % (40-65) H 06/03/17 23:14 VBG Base Excess 4.2 mmol/L (0.0-2.0) H 06/03/17 23:14 VBG Potassium 4.0 mmol/L (3.6-5.2) 06/03/17 23:14 Sodium 135.0 mmol/L (132-148) 06/03/17 23:14 Chloride 100.0 mmol/L (98-107) 06/03/17 23:14 Glucose 108 mg/dl (65-105) H 06/03/17 23:14 Lactate 1.1 mmol/L (0.7-2.1) 06/03/17 23:14 FiO2 21.0 % 06/03/17 23:14 Sodium 138 mmol/L (132-148) 06/10/17 09:40 Potassium 3.5 mmol/L (3.6-5.0) L 06/10/17 09:40 Chloride 94 mmol/L (98-107) L 06/10/17 09:40 Carbon Dioxide 37 mmol/L (21-33) H 06/10/17 09:40 Anion Gap 10 (10-20) 06/10/17 09:40 BUN 19 mg/dL (7-21) 06/10/17 09:40 Creatinine 0.9 mg/dl (0.7-1.2) 06/10/17 09:40 Est GFR ( Amer) > 60 06/10/17 09:40 Est GFR (Non-Af Amer) > 60 06/10/17 09:40 Random Glucose 100 mg/dL (70-110) 06/10/17 09:40 Calcium 10.1 mg/dL (8.4-10.5) 06/10/17 09:40 Phosphorus 2.8 mg/dL (2.5-4.5) 06/05/17 06:30 Magnesium 2.2 mg/dL (1.7-2.2) 06/05/17 06:30 Total Bilirubin 0.2 mg/dL (0.2-1.3) 06/10/17 09:40 AST 21 U/L (14-36) 06/10/17 09:40 ALT 89 U/L (7-56) H 06/10/17 09:40 Alkaline Phosphatase 56 U/L (38-126) 06/10/17 09:40 Lactate Dehydrogenase 581 U/L (333-699) 06/05/17 06:30 Total Creatine Kinase 117 U/L (35-230) 06/05/17 06:30 Troponin I < 0.01 ng/mL 06/05/17 12:48 NT-Pro-B Natriuret Pep 756 pg/mL (0-450) H 06/09/17 18:38 Total Protein 6.5 g/dL (5.8-8.3) 06/10/17 09:40 Albumin 3.9 g/dL (3.0-4.8) 06/10/17 09:40 Globulin 2.6 gm/dL 06/10/17 09:40 Albumin/Globulin Ratio 1.5 (1.1-1.8) 06/10/17 09:40 Procalcitonin < 0.05 NG/ML (0.19-0.49) L 06/03/17 23:14 TSH 3rd Generation 1.54 mIU/mL (0.46-4.68) 06/09/17 07:00 Venous Blood Potassium 4.0 mmol/L (3.6-5.2) 06/03/17 23:14 Hepatitis A IgM Ab Negative (NEGATIVE) 06/06/17 06:30 Hep Bs Antigen Negative (NEGATIVE) 06/06/17 06:30 Hep B Core IgM Ab Negative (NEGATIVE) 06/06/17 06:30 Hepatitis C Antibody Negative (NEGATIVE) 06/06/17 06:30 Influenza Typ A,B (EIA) Negative for flu a/b (NEGATIVE) 06/03/17 23:50 Attending/Attestation - Attestation I have personally seen and examined this patient.: Yes I have fully participated in the care of the patient.: Yes I have reviewed all pertinent clinical information, including history, physical exam and plan: Yes Notes (Text): 06/11/17 13:28 DISCHARGE DIAGNOSIS. COPD exacerbation. Medical record note made by the resident after discussion with my direction and input after the patient was personally seen and examined by me. I have reviewed the chart and agree that the record accurately reflects by personal performance of the history, physical exam, data review, and medical decision-making, in the course for the patient. I have also personally directed the plan of care. 66 year old female with PMH of COPD is admitted with COPD exacerbation.Cough and dyspnea is improved.Patient is on room air Echo showed EF 44% ,LVH and minimal pericardial effusion. on low dose of Lisinopril .Lung sound are clear today.Venous doppler was negative for DVT. Patient is ambulatory.She is feeling at base line.Cardiology evaluation is appreciated. She will be discharged home and will follow up with PCP and cardiology Management plan was discussed in detail with patient. Education was provided.
--- NOTE | 2017-06-10 14:48 | US ---
HISTORY: Leg pain and swelling. Evaluate for DVT PHYSICIAN(S): Basim Benjamin MD. TECHNIQUE: Duplex sonography and color-flow Doppler with graded compression were used to evaluate the deep venous systems of both lower extremities. FINDINGS: The visualized deep venous systems of both lower extremities are sonographically normal and compressible. Normal wave forms and augmentation are seen. There is no sonographic evidence for deep venous thrombosis in the visualized segments of both lower extremities. IMPRESSION: No sonographic evidence for deep venous thrombosis in the visualized segments of both lower extremities.
--- NOTE | 2017-06-10 15:08 | CON ---
CARDIOLOGY CONSULTATION REASON FOR CONSULTATION: Systolic heart failure and abnormal EKG. HISTORY OF PRESENT ILLNESS: The patient is a 66-year-old female, originally from [place], who is a smoker, is unaware of any prior cardiac history, presented because of shortness of breath for 2 days prior to admission despite being on bronchodilator and antibiotics as an outpatient. The patient's shortness of breath and cough improved and the patient is in the process of being discharged on home nasal O2. At this time, the patient denies any chest pain. SOCIAL HISTORY: The patient is a smoker. MEDICATIONS: Benadryl 25 mg at bedtime, Colace 100 mg twice a day, albuterol inhaler every 12 hours p.r.n., Lovenox 40 mg subcutaneous once a day, prednisone 20 mg once a day, Protonix 40 mg p.o. once a day, Toradol 50 mg IV every 8 hours p.r.n. for pain, and Vistaril 5 mg once a day. REVIEW OF SYSTEMS: No nausea or vomiting. No fever or chills. No dizziness or syncope. PHYSICAL EXAMINATION: GENERAL: The patient is an elderly female who does not appear to be in any acute distress. VITAL SIGNS: Blood pressure 127/70, heart rate 100, temperature 97.8, respirations 20. HEENT: Normocephalic. CHEST: Scattered bilateral rhonchi. HEART: S1 and S2 regular. ABDOMEN: Soft. EXTREMITIES: No edema. LABORATORY DATA: SMA-7: Sodium 138, potassium 3.5, chloride 94, CO2 of 37, glucose 100, BUN 19, creatinine 0.9. Three sets of troponins are negative. Hemoglobin and hematocrit 14.8 and 43.4, white count 12.7, platelet count 337,000. D-dimer is 297. Chest x-ray, no active disease. EKG reveals sinus tachycardia, rate 112, incomplete right bundle-branch block, left atrial enlargement. Echocardiography study revealed normal left ventricular size and wall thickness with mildly impaired systolic function and global hypokinesis with grade 1 abnormal relaxation pattern. Ejection fraction estimated at 45%. Mild mitral insufficiency and trace circumferential pericardial effusion. ASSESSMENT: 1. Mild systolic heart failure. 2. Chronic obstructive lung disease. 3. Hypertension. 4. Elevated liver enzymes. RECOMMENDATIONS: Case was discussed with Dr. Portillo. The patient can be maintained on bronchodilators, prednisone 20 mg once a day. Vistaril was started today at 5 mg daily. The patient is not a suitable candidate for beta blockers. The patient did receive K-Dur 20 mEq today for her borderline hypokalemia. If venous Doppler of lower extremity is negative, the patient can be discharged from the cardiac point of view. Tee Figueroa MD
[2017-06-10 15:45] VITALS: BP 103/56; PULSE 109; TEMP 98.3; O2SAT 94
== END 2017-06-10 19:34 | disposition home or self-care (01) | DRG 192 ==
LOC: ED 22:10 → ERH 06-04 01:43 → 2RNO 06-04 04:28 → OBSVTOIN 06-05 12:04 → 5RSO 06-06 10:56
PROVIDERS: ADMIT Internal Medicine; ATTEND Internal Medicine
PROC: 3E0F7GC Introduction of Other Therapeutic Substance into Respiratory Tract, Via Natural or Artificial Opening (ICD-10-PCS; principal; 2017-06-05)
DX: J44.1 Chronic obstructive pulmonary disease with (acute) exacerbation (principal); F17.200 Nicotine dependence, unspecified, uncomplicated; I10 Essential (primary) hypertension; H04.123 Dry eye syndrome of bilateral lacrimal glands; K59.00 Constipation, unspecified; H40.9 Unspecified glaucoma; Z98.82 Breast implant status; Z90.710 Acquired absence of both cervix and uterus

== ENCOUNTER 2017-06-11 11:25 | Inpatient (IN) | payer MEDICARE, OTHER ==
[2017-06-11 11:25] VITALS: BMI 20.2
[2017-06-11] MEDS ORDERED: Atrop/Hyosc/Scopal/PB Elixir (120 ml) PO STA (12:14)
[2017-06-11] MEDS ORDERED: Alum-Mag Hydrox-Simethicone Susp (30 mL) PO STA (12:14)
[2017-06-11] MEDS ORDERED: Sodium Chloride 0.9% 1,000 ML IV STA (12:14)
[2017-06-11] MEDS ORDERED: Famotidine 20mg/50ml 20 MG/50 ML BAG IVPB STA (12:14)
--- NOTE | 2017-06-11 12:17 | ED PDOC ---
Arrival/HPI - General Chief Complaint: GI Problem Time Seen by Provider: 06/11/17 11:57 Historian: Patient - History of Present Illness Narrative History of Present Illness (Text): 06/11/17 12:08 A 66 year old female, whose past medical history includes COPD, presents to the emergency department complaining of shortness of breath for 1 week. Patient reports she was suppose to be sent O2 but was never given any. States having taken probiotics but has had no relief and has taken no other medications. Patient notes also experiencing upper abdominal pain, nausea, vomiting, and diarrhea (this morning). Had fever 1 week ago but no longer experiencing symptom. Patient denies any rhinorrhea, nasal congestion, or any other complaints at this time. Also, patient mentions taking nebulizer and Prednizone at home. Health And Safety Trainer: Dr. Turcios Past Medical History - Provider Review Nursing Documentation Reviewed: Yes - Infectious Disease Hx of Infectious Diseases: None - Tetanus Immunization Tetanus Immunization: Unknown - Cardiac Hx Cardiac Disorders: No - Pulmonary Hx Respiratory Disorders: Yes Hx Chronic Obstructive Pulmonary Disease (COPD): Yes - Neurological Hx Neurological Disorder: No - HEENT Hx HEENT Disorder: Yes Hx Glaucoma: Yes - Renal Hx Renal Disorder: No - Endocrine/Metabolic Hx Endocrine Disorders: No - Hematological/Oncological Hx Blood Disorders: No - Integumentary Hx Dermatological Disorder: No - Musculoskeletal/Rheumatological Hx Musculoskeletal Disorders: Yes Hx Arthritis: Yes (oestoporsis) - Gastrointestinal Hx Gastritis: Yes - Genitourinary/Gynecological Hx Genitourinary Disorders: No - Psychiatric Hx Psychophysiologic Disorder: No Hx Depression: No Hx Emotional Abuse: No Hx Physical Abuse: No Hx Substance Use: No - Surgical History Hx Hysterectomy: Yes - Suicidal Assessment Feels Threatened In Home Enviroment: No Family/Social History - Physician Review Nursing Documentation Reviewed: Yes Family/Social History: No Known Family HX Smoking Status: Former Smoker Hx Alcohol Use: Yes Hx Substance Use: No Hx Substance Use Treatment: No Allergies/Home Meds Allergies/Adverse Reactions: Allergies EGG Allergy (Verified 06/11/17 11:48) ANAPHYLAXIS Home Medications: Home Meds Medication Instructions Recorded Confirmed Brinzolamide [Azopt] 1 drop OU BID 06/11/17 06/11/17 Cefpodoxime [Vantin] 200 mg PO Q12 06/11/17 06/11/17 Fluticasone Furoate [Arnuity 200 mcg IH DAILY 06/11/17 06/11/17 Ellipta] Lisinopril [Zestril] 1 tab PO DAILY 06/11/17 06/11/17 Methylprednisolone [Medrol] 1 tab PO DAILY 06/11/17 06/11/17 Pantoprazole Sodium [Protonix] 40 mg PO DAILY 06/11/17 06/11/17 Review of Systems - Physician Review All systems were reviewed & negative as marked: Yes - Review of Systems Constitutional: absent: Fevers (had fever 1 week ago but no longer experiencing symptom) ENT: absent: Rhinorrhea, Sinus Congestion Respiratory: SOB Gastrointestinal: Abdominal Pain (before vomiting), Diarrhea (this morning), Nausea, Vomiting Physical Exam Vital Signs Reviewed: Yes Vital Signs Temp Pulse Resp BP Pulse Ox 06/11/17 11:45 97.9 F 120 H 22 112/52 L 94 L Temperature: Afebrile Blood Pressure: Normal Pulse: Regular Respiratory Rate: Normal Appearance: Positive for: Well-Appearing Pain Distress: None Mental Status: Positive for: Alert and Oriented X 3 - Systems Exam Respiratory/Chest: Present: Wheezes (trace wheezing), Decreased Breath Sounds. No: Retracting Cardiovascular: Present: Tachycardic Abdomen: Present: Tenderness (epigastric), Guarding. No: Rebound Lower Extremity: Present: Normal Inspection. No: Edema Neurological: Present: GCS=15, CN II-XII Intact, Speech Normal Skin: Present: Warm, Dry, Normal Color. No: Rashes Psychiatric: Present: Alert, Oriented x 3, Normal Insight, Normal Concentration Medical Decision Making ED Course and Treatment: 06/11/17 12:12 Impression: 66 year old female with shortness of breath, abdominal pain, nausea , vomiting. Physical exam shows trace wheezing; decreased breath sounds, no retractions; tachycardic; negative lower extremity edema; epigastric tenderness with guarding, no rebound. Differential Diagnosis included but are not limited to: COPD Exacerbation; Abdominal Pain with Vomiting and Dehydration. Plan: -- EKG -- Chest X-ray -- Labs -- Blood Culture -- Venous Blood Gas -- Duoneb -- SOLU-Medrol -- Urinalysis -- Reassess and disposition Prior Visits: Notes and results from previous visits were reviewed. Patient was last seen in the emergency department on 06/05/2017 for shortness of breath. Patient was admitted. Progress Notes: EKG: Ordered, reviewed, and independently interpreted the EKG. Rate : 118 BPM Rhythm : Sinus tachycardia. Interpretation : Ventricular block. Comparison : No previous EKG for comparison. 06/11/2017 13:15 Chest X-ray IMPRESSION: No active disease. Dictator: Luis E Mcguire MD 06/11/17 14:03 Patient is feeling better after hydration and medications. Lungs clear, no w/r/ r. Abdomen soft and not tender. She is no distress. Potassium is low and replaced with PO and IV Potassium. Her Calcium is low and treated with Calcium IV. Case discussed with Dr. Bandar Egan who will place on Telemetry Observation for COPD Exacerbation and Abdominal/Vomiting/Dehydration. - Lab Interpretations Lab Results: 06/11/17 12:30 06/11/17 12:00 Lab Results 06/11/17 12:30: Magnesium 1.7 06/11/17 12:30: pO2 38, VBG pH 7.43, VBG pCO2 56.0, VBG HCO3 37.2 H, VBG Total CO2 38.9 H, VBG O2 Sat (Calc) 77.2 H, VBG Base Excess 10.7 H, VBG Potassium 4.1 , Glucose 106 H, Lactate 1.5, FiO2 21.0, Sodium 134.0, Chloride 95.0 L, Venous Blood Potassium 4.1 06/11/17 12:30: WBC 20.1 H D, RBC 4.80, Hgb 15.6, Hct 45.5, MCV 94.8, MCH 32.5, MCHC 34.3, RDW 12.8, Plt Count 274, MPV 8.9, Gran % 80.2 H, Lymph % (Auto) 13.7 L, [place] % (Auto) 4.4, Eos % (Auto) 1.6, Baso % (Auto) 0.1, Gran # 16.14 H, Lymph # (Auto) 2.8, [place] # (Auto) 0.9 H, Eos # (Auto) 0.3, Baso # (Auto) 0.03 06/11/17 12:00: Sodium 138, Potassium 2.6 L* D, Chloride 107, Carbon Dioxide 26 , Anion Gap 8 L, BUN 24 H, Creatinine 0.7, Est GFR ( Amer) > 60, Est GFR (Non-Af Amer) > 60, Random Glucose 83, Calcium 6.8 L*, Total Bilirubin 0.3, AST 22, ALT 62 H, Alkaline Phosphatase 38 D, Lactate Dehydrogenase 479, Total Creatine Kinase 140, Troponin I < 0.01, Total Protein 4.4 L, Albumin 2.4 L, Globulin 2.0, Albumin/Globulin Ratio 1.2, Lipase 23 I have reviewed the lab results: Yes - RAD Interpretation Radiology Orders: 06/11/17 12:13 CHEST PORTABLE [RAD] Stat - Medication Orders Current Medication Orders: Potassium Chloride (Potassium Chloride 10 Meq/100 Ml) 10 meq in 100 mls @ 50 mls/hr IVPB ONCE ONE Stop: 06/11/17 15:14 Last Admin: 06/11/17 13:31 Dose: 50 mls/hr eMAR Start Stop Document 06/11/17 13:31 [facility] (Rec: 06/11/17 13:31 [id number] Intravenous Solution Start Date 06/11/17 Start Time 13:31 End Date 06/11/17 End time 15:31 Total Infusion Time 120 Discontinued Medications Al Hydrox/Mg Hydrox/Simethicone (Maalox Plus 30 Ml) 30 ml PO STAT STA Stop: 06/11/17 12:15 Last Admin: 06/11/17 12:43 Dose: 30 ml Albuterol/Ipratropium (Duoneb 3 Mg/0.5 Mg (3 Ml) Ud) 3 ml IH Q15M EDWARD Stop: 06/11/17 12:46 Last Admin: 06/11/17 13:29 Dose: 3 ml Belladonna/Phenobarbital ( Elixir) 5 ml PO STAT STA Stop: 06/11/17 12:15 Last Admin: 06/11/17 12:43 Dose: 5 ml Calcium Gluconate (Calcium Gluconate Iv) 1,000 mg IVP ONCE ONE Stop: 06/11/17 13:09 Last Admin: 06/11/17 13:29 Dose: 1,000 mg IVP Administration Document 06/11/17 13:29 [facility] (Rec: 06/11/17 13:30 [id number] Charges for Administration # of IVP Administrations 1 Famotidine (Pepcid 20mg/50ml Premix) 20 mg in 50 mls @ 100 mls/hr IVPB STAT STA Stop: 06/11/17 12:43 Last Admin: 06/11/17 12:44 Dose: 100 mls/hr eMAR Start Stop Document 06/11/17 12:44 [facility] (Rec: 06/11/17 12:44 [id number][facility] Intravenous Solution Start Date 06/11/17 Start Time 12:44 End Date 06/11/17 End time 12:59 Total Infusion Time 15 Sodium Chloride (Sodium Chloride 0.9%) 1,000 mls @ 999 mls/hr IV .Q1H1M STA Stop: 06/11/17 13:14 Last Admin: 06/11/17 12:42 Dose: 999 mls/hr eMAR Start Stop Document 06/11/17 12:42 [facility] (Rec: 06/11/17 12:43 [id number] Intravenous Solution Start Date 06/11/17 Start Time 12:43 End Date 06/11/17 End time 13:43 Total Infusion Time 60 Lidocaine HCl (Lidocaine 2% Viscous) 15 ml PO STAT STA Stop: 06/11/17 12:15 Last Admin: 06/11/17 12:43 Dose: 15 ml Methylprednisolone (Solu-Medrol) 125 mg IVP STAT STA Stop: 06/11/17 12:13 Last Admin: 06/11/17 12:43 Dose: 125 mg IVP Administration Document 06/11/17 12:43 [facility] (Rec: 06/11/17 12:43 [facility]-[id number]) Charges for Administration # of IVP Administrations 1 Ondansetron HCl (Zofran Inj) 4 mg IVP STAT STA Stop: 06/11/17 12:15 Last Admin: 06/11/17 12:44 Dose: 4 mg IVP Administration Document 06/11/17 12:44 [facility] (Rec: 06/11/17 12:44 [id number][facility] Charges for Administration # of IVP Administrations 1 Potassium Chloride (K-Dur 20 Meq Er Tab) 40 meq PO STAT STA Stop: 06/11/17 13:09 Last Admin: 06/11/17 13:29 Dose: 40 meq - Scribe Statement The provider has reviewed the documentation as recorded by the Mayra Middleton Provider Scribe Attestation: All medical record entries made by the Scribe were at my direction and personally dictated by me. I have reviewed the chart and agree that the record accurately reflects my personal performance of the history, physical exam, medical decision making, and the department course for this patient. I have also personally directed, reviewed, and agree with the discharge instructions and disposition. Disposition/Present on Arrival - Present on Arrival Any Indicators Present on Arrival: No History of DVT/PE: No History of Uncontrolled Diabetes: No Urinary Catheter: No History of Decub. Ulcer: No History Surgical Site Infection Following: None - Disposition Have Diagnosis and Disposition been Completed?: Yes Diagnosis: COPD (chronic obstructive pulmonary disease), Abdominal pain, Dehydration Disposition: HOSPITALIZED Disposition Time: 14:05 Patient Plan: Observation Condition: FAIR
[2017-06-11] MEDS: Albuterol-Ipratrop 3 mg / 0.5 (3 ml) UD IH SCH ×3 (12:43→13:29)
[2017-06-11 12:44] LABS: VENOUS BLOOD GAS BASE EXCESS 10.7 mmol/L (0.0-2.0); VENOUS BLOOD GAS PO2 38 mm/Hg (30-55); VENOUS BLOOD PH 7.43 (7.32-7.43)
[2017-06-11 12:45] LABS: BASO # 0.03 K/mm3 (0.0-2.0); BASO % 0.1 % (0.0-3.0); EOS # 0.3 (0.0-0.7); EOS % 1.6 % (1.5-5.0); GRAN # 16.14 (1.4-6.5); GRAN % 80.2 % (50.0-68.0); HEMOGLOBIN 15.6 g/dL (12.0-16.0); LYMPH # 2.8 (1.2-3.4); LYMPH % 13.7 % (22.0-35.0); MEAN CELL VOLUME 94.8 fl (80.0-105.0); MEAN CORPUSCULAR HEMOGLOBIN 32.5 pg (25.0-35.0); MEAN CORPUSCULAR HGB CONC 34.3 g/dl (31.0-37.0); MEAN PLATELET VOLUME 8.9 fl (7.0-11.0); MONO # 0.9 (0.1-0.6); MONO % 4.4 % (1.0-6.0); RBC 4.8 10^6/uL (3.5-6.1); RED CELL DISTRIBUTION WIDTH 12.8 % (11.5-14.5); WHITE BLOOD COUNT 20.1 10^3/ul (4.5-11.0)
[2017-06-11 12:58] LABS: ALB/GLOB RATIO 1.2 (1.1-1.8); ALBUMIN 2.4 g/dL (3.0-4.8); ALT/SGPT 62 U/L (7-56); AST/SGOT 22 U/L (14-36); BLOOD UREA NITROGEN 24 mg/dL (7-21); CALCIUM 6.8 mg/dL (8.4-10.5); GFR AFRICAN-AMERICAN > 60; GFR NON-AFRICAN AMERICAN > 60; LIPASE 23 U/L (23-300)
[2017-06-11 13:06] LABS: TROPONIN I < 0.01 ng/mL
[2017-06-11] MEDS ORDERED: Potassium Chloride 20 mEq ER Tab PO STA (13:08)
--- NOTE | 2017-06-11 13:16 | RAD ---
HISTORY: sob COMPARISON: 06/03/2017 FINDINGS: LUNGS: No active pulmonary disease. PLEURA: No significant pleural effusion identified, no pneumothorax apparent. CARDIOVASCULAR: Normal. OSSEOUS STRUCTURES: No significant abnormalities. VISUALIZED UPPER ABDOMEN: Normal. OTHER FINDINGS: Calcified breast implants IMPRESSION: No active disease.
--- NOTE | 2017-06-11 14:48 | CP.PCM.HP ---
<Roxana Sanchez - Last Filed: 06/11/17 15:12> History of Present Illness - History of Present Illness History of Present Illness: 66 year old female with a past medical history of COPD (quit smoking a year ago) , dry eyes, glaucoma, osteoporosis and gastritis who was [place] [facility]. She was treated for 6.5 days with IV steroids while hospitalized. She discharged with home oxygen set up at her house and four medications (Fluticasone inhaler, a six day course of methylprednisone, six day course of Protonix, and 5 mg of Lisinopril. She did not get a chance to take any of the medications but did take Protonix in the morning and vomited buckets of fluids thereafter; accompanied by band like pain around her subcoastal margins, mainly anteriorly. She presents to the ED for the vomiting. She reports drinking 5-6 cups of coffee a day. She lives alone at home. PMH: COPD, gastritis, dry eyes, glaucoma, and gastritis Surgeries: hysterectomy Allergies: Egg and Amoxicillin Social: 40 pack year history of smoking, quit a year ago, drinks occasionally: lives alone, son lives in [place] Present on Admission - Present on Admission Any Indicators Present on Admission: No Review of Systems - Review of Systems All systems: reviewed and no additional remarkable complaints except (as per HPI ) Past Patient History - Infectious Disease Hx of Infectious Diseases: None - Tetanus Immunizations Tetanus Immunization: Unknown - Past Social History Smoking Status: Former Smoker - CARDIAC Hx Cardiac Disorders: No - PULMONARY Hx Respiratory Disorders: Yes Hx Chronic Obstructive Pulmonary Disease (COPD): Yes - NEUROLOGICAL Hx Neurological Disorder: No - HEENT Hx HEENT Problems: Yes Hx Glaucoma: Yes - RENAL Hx Chronic Kidney Disease: No - ENDOCRINE/METABOLIC Hx Endocrine Disorders: No - HEMATOLOGICAL/ONCOLOGICAL Hx Blood Disorders: No - INTEGUMENTARY Hx Dermatological Problems: No - MUSCULOSKELETAL/RHEUMATOLOGICAL Hx Musculoskeletal Disorders: Yes Hx Arthritis: Yes (oestoporsis) - GASTROINTESTINAL Hx Gastritis: Yes - GENITOURINARY/GYNECOLOGICAL Hx Genitourinary Disorders: No - PSYCHIATRIC Hx Psychophysiologic Disorder: No Hx Depression: No Hx Emotional Abuse: No Hx Physical Abuse: No Hx Substance Use: No - SURGICAL HISTORY Hx Hysterectomy: Yes Meds Home Medications: Home Medication List Medication Instructions Recorded Confirmed Type Albuterol HFA [Ventolin HFA 90 2 puff IH [id number] #2 puff 04/06/18 Rx mcg/actuation (8 g)] Fluticasone/Salmeterol 500/50 1 dsk IH Q12H #1 puff 06/12/17 Rx [Advair Diskus] Ondansetron ODT [Zofran ODT] 4 mg PO Q4H PRN #56 odt 06/12/17 Rx Sucralfate [Carafate Oral Susp] 1 gm PO 0630,1130,1630,2200 #56 udc 06/12/17 Rx cycloSPORINE [Restasis] 1 ea OU Q12 drpt 06/12/17 Rx Famotidine [Pepcid] 20 mg PO HS #30 tab 06/13/17 Rx Allergies/Adverse Reactions: Allergies Allergy/AdvReac Type Severity Reaction Status Date / Time EGG Allergy ANAPHYLAXIS Verified 06/11/17 11:48 Physical Exam - Constitutional Appears: Older Than Stated Age - Head Exam Head Exam: ATRAUMATIC, NORMOCEPHALIC - Eye Exam Eye Exam: EOMI, Normal appearance - ENT Exam ENT Exam: Mucous Membranes Moist, Normal Oropharynx - Neck Exam Neck exam: Positive for: Normal Inspection - Respiratory Exam Respiratory Exam: Clear to Auscultation Bilateral, NORMAL BREATHING PATTERN. absent: Accessory Muscle Use - Cardiovascular Exam Cardiovascular Exam: Tachycardia, +S1, +S2 - GI/Abdominal Exam GI & Abdominal Exam: Normal Bowel Sounds, Soft - Extremities Exam Extremities exam: Positive for: normal inspection. Negative for: calf tenderness - Back Exam Back exam: NORMAL INSPECTION. absent: CVA tenderness (L), CVA tenderness (R) - Neurological Exam Neurological exam: Alert, CN II-XII Intact, Oriented x3 - Psychiatric Exam Psychiatric exam: Normal Affect, Normal Mood - Skin Skin Exam: Dry, Intact, Normal Color, Warm Results - Vital Signs Recent Vital Signs: Last Vital Signs Temp 97.9 F 06/11/17 11:45 Pulse 110 H 06/11/17 14:21 Resp 17 06/11/17 14:21 BP 102/48 L 06/11/17 14:21 Pulse Ox 96 06/11/17 14:21 - Labs Result Diagrams: 06/11/17 12:30 06/11/17 12:00 Assessment & Plan - Assessment and Plan (Free Text) Assessment: 66 year old female with a past medical history of COPD (quit smoking a year ago) , dry eyes, glaucoma, osteoporosis and gastritis who was [place] yesterday [place] [facility] and present with one day of intractable nausea and vomiting. 1) Nausea and vomiting secondary to gastritis provoked by prolonged steroid use - NS 75 - Zofran 4 mg q4h PRN - IVP famotidine daily - 6 small meals, no coffee 2) COPD, stable - Levalbuterol and Ipratropium q6h EDWARD 3) Tachycardia, likley secondary to duonebs and atropine given in the ED - EKG shows no acute changes - May consider Diltiazem PO if it persist. 4) DVT/GI prophylaxis - Famotidine - SCD Case seen and discused with attending physician. Dr. Portillo. - Date & Time Date: 06/11/17 Time: 15:08 Decision To Admit - . Bed Request Type: Telemetry Admitting Physician: Cathy Portillo <Cathy Portillo - Last Filed: 06/13/17 13:46> Results - Vital Signs Recent Vital Signs: Last Vital Signs Temp 98.9 F 06/13/17 12:00 Pulse 99 H 06/13/17 12:00 Resp 18 06/13/17 12:00 BP 96/64 L 06/13/17 12:00 Pulse Ox 95 06/13/17 06:00 - Labs Result Diagrams: 06/13/17 07:00 06/13/17 06:30 Labs: Laboratory Results - last 24 hr 06/13/17 06/13/17 06:30 07:00 WBC 13.4 H RBC 3.90 Hgb 12.2 Hct 38.0 MCV 97.4 MCH 31.3 MCHC 32.1 RDW 13.2 Plt Count 247 MPV 9.2 Gran % 73.6 H Lymph % (Auto) 18.[address] [place] % (Auto) 5.8 Eos % (Auto) 2.2 Baso % (Auto) 0.1 Gran # 9.84 H Lymph # (Auto) 2.5 [place] # (Auto) 0.8 H Eos # (Auto) 0.3 Baso # (Auto) 0.02 Sodium 137 Potassium 4.4 Chloride 99 Carbon Dioxide 33 Anion Gap 9 L BUN 11 Creatinine 0.9 Est GFR ( Amer) > 60 Est GFR (Non-Af Amer) > 60 Random Glucose 84 Calcium 8.8 Total Bilirubin 0.2 AST 29 ALT 68 H Alkaline Phosphatase 47 Total Protein 5.3 L Albumin 3.0 Globulin 2.2 Albumin/Globulin Ratio 1.4 Attending/Attestation - Attestation I have personally seen and examined this patient.: Yes I have fully participated in the care of the patient.: Yes I have reviewed all pertinent clinical information: Yes Notes (Text): 06/13/17 13:29 Medical record note made by the resident after discussion with my direction and input after the patient was personally seen and examined by me. I have reviewed the chart and agree that the record accurately reflects by personal performance of the history, physical exam, data review, and medical decision-making, in the course for the patient. I have also personally directed the plan of care. 66 year old female with PMH of COPD on home oxygen,Pepetic ulcer disease, CHF with systolic dysfunction EF 44% was recently discharged from hospital after treatment of COPD exacerbation is admitted with intractable Nausea, vomiting, epigastric pain due to peptic ulcer disease.Patient is also found to have hypokalemia. Patient has leukocytosis due to stress response, also was on steroid.There is no evidence of infection. We will start patient on IV fluid,PPI and zofran.We will monitor patient in telemetry, Management plan was discussed in detail with patient. Education was provided. 06/13/17 13:45
[2017-06-11] MEDS ORDERED: DiphenhydrAMINE 12.5 mg/5 ml LIQ UD (5 ml) PO PRN (14:58)
[2017-06-11 15:30] LABS: BLOOD UREA NITROGEN 30 mg/dL (7-21); GFR AFRICAN-AMERICAN > 60; GFR NON-AFRICAN AMERICAN > 60
[2017-06-11] MEDS: Sodium Chloride 0.9% 1,000 ML IV SCH (16:52)
[2017-06-11] MEDS ORDERED: BRINZOLAMIDE OU SCH ×2 (18:00)
[2017-06-11] MEDS ORDERED: Potassium Chloride 20 mEq ER Tab PO ONE (18:00)
--- NOTE | 2017-06-11 19:12 | CARD ---
APPROVED REPORT EKG Measurement Heart [id number] IN [id number] [id number] <Conclusion> Sinus tachycardia Biatrial enlargement Pulmonary disease pattern Right bundle branch block Left anterior fascicular block Bifascicular block Abnormal ECG
[2017-06-11] MEDS: cycloSPORINE 0.05 % Opth Emulsion UD OU SCH (21:16)
[2017-06-11] MEDS: Ipratropium 0.02% Inhal Soln (0.5 mg/2.5 ml) UD IH SCH (21:25)
[2017-06-11] MEDS: Levalbuterol 0.63 MG/3 ML Inhal Soln UD IH SCH (21:25)
[2017-06-11] MEDS ORDERED: cycloSPORINE 0.05 % Opth Emulsion UD OU SCH (22:00)
[2017-06-12] MEDS: Ipratropium 0.02% Inhal Soln (0.5 mg/2.5 ml) UD IH SCH ×5 (02:02→19:50)
[2017-06-12] MEDS: Sodium Chloride 0.9% 1,000 ML IV SCH (05:37)
[2017-06-12 06:27] LABS: BASO # 0.01 K/mm3 (0.0-2.0); BASO % 0.1 % (0.0-3.0); EOS % 0.2 % (1.5-5.0); GRAN # 10.32 (1.4-6.5); GRAN % 84.2 % (50.0-68.0); LYMPH # 1.3 (1.2-3.4); LYMPH % 10.9 % (22.0-35.0); MEAN CELL VOLUME 95.8 fl (80.0-105.0); MEAN CORPUSCULAR HEMOGLOBIN 31.2 pg (25.0-35.0); MEAN CORPUSCULAR HGB CONC 32.6 g/dl (31.0-37.0); MEAN PLATELET VOLUME 8.9 fl (7.0-11.0); MONO # 0.6 (0.1-0.6); MONO % 4.6 % (1.0-6.0); RBC 3.81 10^6/uL (3.5-6.1); RED CELL DISTRIBUTION WIDTH 13.3 % (11.5-14.5); WHITE BLOOD COUNT 12.3 10^3/ul (4.5-11.0)
[2017-06-12 06:35] LABS: HEMOGLOBIN 11.9 g/dL (12.0-16.0)
--- NOTE | 2017-06-12 06:53 | CP.PCM.PN ---
<Roxana Sanchez - Last Filed: 06/12/17 15:35> Subjective - Date & Time of Evaluation Date of Evaluation: 06/12/17 Time of Evaluation: 06:53 - Subjective Subjective: Patient seen and examined at bedside. In the morning patient was fine, had no complaints aside from nausea at 5:27 am for which she was given stat dose of IV famotidine. Later in the afternoon while a great deal of discharge planning was occurring patient developed epigastric pain and nausea. Patient was switched to IVP Protonix. Objective - Vital Signs/Intake and Output Vital Signs (last 24 hours): Temp Pulse Resp BP Pulse Ox 98.6 F 94 H 20 115/53 L 94 L 06/12/17 05:45 06/12/17 06:00 06/12/17 05:45 06/12/17 05:45 06/12/17 05:45 Intake and Output: 06/11/17 06/12/17 18:59 06:59 Intake Total 900 Balance 900 - Medications Medications: Current Medications Cyclosporine (Restasis) 1 ea OU Q12 [facility] Last Admin: 06/11/17 21:16 Dose: 1 ea Famotidine (Pepcid) 20 mg IVP DAILY [facility] Last Admin: 06/12/17 06:46 Dose: 20 mg Home Med (Home Med) 1 unit OU BID [facility] Sodium Chloride (Sodium Chloride 0.9%) 1,000 mls @ 75 mls/hr IV [id number] [facility] Last Admin: 06/12/17 05:37 Dose: 75 mls/hr Ipratropium [place] (Atrovent) 0.5 mg IH [id number] [facility] Last Admin: 06/12/17 02:02 Dose: 0.5 mg Levalbuterol HCl (Xopenex) 0.63 mg IH TIDRESP [facility] Last Admin: 06/11/17 21:25 Dose: 0.63 mg Non-Formulary Medication (Fluticasone Furoate [Arnuity Ellipta]) 200 mcg IH DAILY [facility] Ondansetron HCl (Zofran Inj) 4 mg IVP Q6H PRN PRN Reason: Nausea/Vomiting - Labs Labs: 06/12/17 05:30 06/11/17 14:55 - Constitutional Appears: Well, Non-toxic - Head Exam Head Exam: ATRAUMATIC, NORMOCEPHALIC - Eye Exam Eye Exam: EOMI, Normal appearance - ENT Exam ENT Exam: Mucous Membranes Moist, Normal Oropharynx - Neck Exam Neck Exam: Normal Inspection - Respiratory Exam Respiratory Exam: Clear to Ausculation Bilateral, NORMAL BREATHING PATTERN. absent: Accessory Muscle Use - Cardiovascular Exam Cardiovascular Exam: RRR, +S1, +S2 - GI/Abdominal Exam GI & Abdominal Exam: Soft, Normal Bowel Sounds. absent: Guarding, Rebound - Extremities Exam Extremities Exam: Normal Inspection. absent: Calf Tenderness - Back Exam Back Exam: NORMAL INSPECTION. absent: CVA tenderness (L), CVA tenderness (R) - Neurological Exam Neurological Exam: Alert, Awake, Oriented x3 - Psychiatric Exam Psychiatric exam: Normal Affect, Normal Mood - Skin Skin Exam: Dry, Intact, Normal Color, Warm Assessment and Plan - Assessment and Plan (Free Text) Assessment: 66 year old female with a past medical history of COPD (quit smoking a year ago) , dry eyes, glaucoma, osteoporosis and gastritis who was discharged yesterday from [facility] [place] for COPD exacerbation and present with one day of intractable nausea and vomiting. 1) Nausea and vomiting secondary to gastritis provoked by prolonged steroid use - Zofran 4 mg q4h PRN - Protonix 40 mg q12h - Carafate 1 gm QID - HHD, with absolutely no coffee or tea 2) COPD, stable - Levalbuterol and Ipratropium q6h [place] 3) Tachycardia, likley secondary to duonebs and atropine given in the ED - EKG shows no acute changes - May consider Diltiazem PO if it persist. 4) DVT/GI prophylaxis - SCD - Protonix 40 mg q12h Case seen and discused with attending physician. Dr. Portillo <Cathy Portillo - Last Filed: 06/13/17 13:49> Objective - Vital Signs/Intake and Output Vital Signs (last 24 hours): Temp Pulse Resp BP Pulse Ox 98.9 F 99 H 18 96/64 L 95 06/13/17 12:00 06/13/17 12:00 06/13/17 12:00 06/13/17 12:00 06/13/17 06:00 Intake and Output: 06/13/17 06/13/17 06:59 18:59 Intake Total 500 Output Total 2 Balance 498 - Medications Medications: Current Medications Cyclosporine (Restasis) 1 ea OU Q12 [facility] Last Admin: 06/13/17 10:44 Dose: 1 ea Home Med (Home Med) 1 unit OU BID [facility] Last Admin: 06/13/17 10:47 Dose: 1 unit Ipratropium [place] (Atrovent) 0.5 mg 0800,1400,1999 [facility] Last Admin: 06/13/17 07:42 Dose: 0.5 mg Levalbuterol HCl (Xopenex) 0.63 mg IH 0800,1400,1999 [facility] Last Admin: 06/13/17 07:42 Dose: 0.63 mg Non-Formulary Medication (Fluticasone Furoate [Arnuity Ellipta]) 200 mcg IH DAILY [facility] Last Admin: 06/13/17 11:17 Dose: Not Given Ondansetron HCl (Zofran Inj) 4 mg IVP Q4H PRN PRN Reason: Nausea/Vomiting Last Admin: 06/13/17 06:02 Dose: 4 mg Pantoprazole Sodium (Protonix Inj) 40 mg IVP Q12 [facility] Last Admin: 06/13/17 10:44 Dose: 40 mg Sucralfate (Carafate Oral Susp) 1 gm PO 0630,1130,1630,2200 [facility] Last Admin: 06/13/17 10:44 Dose: 1 gm - Labs Labs: 06/13/17 07:00 06/13/17 06:30 Attending/Attestation - Attestation I have personally seen and examined this patient.: Yes I have fully participated in the care of the patient.: Yes I have reviewed all pertinent clinical information, including history, physical exam and plan: Yes Notes (Text): 06/13/17 13:48 Medical record note made by the resident after discussion with my direction and input after the patient was personally seen and examined by me. I have reviewed the chart and agree that the record accurately reflects by personal performance of the history, physical exam, data review, and medical decision-making, in the course for the patient. I have also personally directed the plan of care.
[2017-06-12 07:15] LABS: ALB/GLOB RATIO 1.3 (1.1-1.8); ALBUMIN 2.8 g/dL (3.0-4.8); ALT/SGPT 66 U/L (7-56); AST/SGOT 31 U/L (14-36); BLOOD UREA NITROGEN 16 mg/dL (7-21); CALCIUM 8.8 mg/dL (8.4-10.5); GFR AFRICAN-AMERICAN > 60; GFR NON-AFRICAN AMERICAN > 60
[2017-06-12] MEDS: Levalbuterol 0.63 MG/3 ML Inhal Soln UD IH SCH ×3 (07:22→19:50)
[2017-06-12] MEDS: AZOPT 1% OU SCH ×2 (09:29→18:40)
[2017-06-12] MEDS: cycloSPORINE 0.05 % Opth Emulsion UD OU SCH ×2 (09:31→22:07)
[2017-06-12] MEDS: FLUTICASONE FUROATE 200 MCG IH SCH (09:32)
[2017-06-12] MEDS ORDERED: FLUTICASONE FUROATE 200 MCG IH SCH (10:00)
[2017-06-12] MEDS ORDERED: oxyCODONE 5 mg Immediate Release Tab PO STA (12:27)
[2017-06-12] MEDS: Sucralfate 1 gm/10 ml Oral Susp UD PO SCH ×3 (12:30→22:07)
--- NOTE | 2017-06-12 12:58 | CP.PCM.DIS ---
Provider - Provider Date of Admission: 06/11/17 13:40 Attending physician: Rachel Egan MD Primary care physician: Fabien Gonsalez MD Hospital Course - Lab Results Lab Results: Most Recent Lab Values WBC 12.3 10^3/ul (4.5-11.0) H D 06/12/17 05:30 RBC 3.81 10^6/uL (3.5-6.1) 06/12/17 05:30 Hgb 11.9 g/dL (12.0-16.0) L D 06/12/17 05:30 Hct 36.5 % (36.0-48.0) 06/12/17 05:30 MCV 95.8 fl (80.0-105.0) 06/12/17 05:30 MCH 31.2 pg (25.0-35.0) 06/12/17 05:30 MCHC 32.6 g/dl (31.0-37.0) 06/12/17 05:30 RDW 13.3 % (11.5-14.5) 06/12/17 05:30 Plt Count 264 10^3/uL (120.0-450.0) 06/12/17 05:30 MPV 8.9 fl (7.0-11.0) 06/12/17 05:30 Gran % 84.2 % (50.0-68.0) H 06/12/17 05:30 Lymph % (Auto) 10.9 % (22.0-35.0) L 06/12/17 05:30 [place] % (Auto) 4.6 % (1.0-6.0) 06/12/17 05:30 Eos % (Auto) 0.2 % (1.5-5.0) L 06/12/17 05:30 Baso % (Auto) 0.1 % (0.0-3.0) 06/12/17 05:30 Gran # 10.32 (1.4-6.5) H 06/12/17 05:30 Lymph # (Auto) 1.3 (1.2-3.4) 06/12/17 05:30 [place] # (Auto) 0.6 (0.1-0.6) 06/12/17 05:30 Eos # (Auto) 0.0 (0.0-0.7) 06/12/17 05:30 Baso # (Auto) 0.01 K/mm3 (0.0-2.0) 06/12/17 05:30 pO2 38 mm/Hg (30-55) 06/11/17 12:30 VBG pH 7.43 (7.32-7.43) 06/11/17 12:30 VBG pCO2 56.0 (40-60) 06/11/17 12:30 VBG HCO3 37.2 mmol/l (21-28) H 06/11/17 12:30 VBG Total CO2 38.9 mmol.L (22-28) H 06/11/17 12:30 VBG O2 Sat (Calc) 77.2 % (40-65) H 06/11/17 12:30 VBG Base Excess 10.7 mmol/L (0.0-2.0) H 06/11/17 12:30 VBG Potassium 4.1 mmol/L (3.6-5.2) 06/11/17 12:30 Sodium 134.0 mmol/L (132-148) 06/11/17 12:30 Chloride 95.0 mmol/L (98-107) L 06/11/17 12:30 Glucose 106 mg/dl (65-105) H 06/11/17 12:30 Lactate 1.5 mmol/L (0.7-2.1) 06/11/17 12:30 FiO2 21.0 % 06/11/17 12:30 Sodium 137 mmol/L (132-148) 06/12/17 05:30 Potassium 4.9 mmol/L (3.6-5.0) 06/12/17 05:30 Chloride 103 mmol/L (98-107) 06/12/17 05:30 Carbon Dioxide 31 mmol/L (21-33) 06/12/17 05:30 Anion Gap 8 (10-20) L 06/12/17 05:30 BUN 16 mg/dL (7-21) 06/12/17 05:30 Creatinine 0.7 mg/dl (0.7-1.2) 06/12/17 05:30 Est GFR ( Amer) > 60 06/12/17 05:30 Est GFR (Non-Af Amer) > 60 06/12/17 05:30 Random Glucose 155 mg/dL (70-110) H 06/12/17 05:30 Calcium 8.8 mg/dL (8.4-10.5) 06/12/17 05:30 Magnesium 1.7 mg/dL (1.7-2.2) 06/11/17 12:30 Total Bilirubin 0.2 mg/dL (0.2-1.3) 06/12/17 05:30 AST 31 U/L (14-36) 06/12/17 05:30 ALT 66 U/L (7-56) H 06/12/17 05:30 Alkaline Phosphatase 44 U/L (38-126) 06/12/17 05:30 Lactate Dehydrogenase 479 U/L (333-699) 06/11/17 12:00 Total Creatine Kinase 140 U/L (35-230) 06/11/17 12:00 Troponin I < 0.01 ng/mL 06/11/17 18:31 Total Protein 5.0 g/dL (5.8-8.3) L 06/12/17 05:30 Albumin 2.8 g/dL (3.0-4.8) L 06/12/17 05:30 Globulin 2.2 gm/dL 06/12/17 05:30 Albumin/Globulin Ratio 1.3 (1.1-1.8) 06/12/17 05:30 Lipase 23 U/L (23-300) 06/11/17 12:00 Venous Blood Potassium 4.1 mmol/L (3.6-5.2) 06/11/17 12:30 Discharge Exam - Head Exam Head Exam: ATRAUMATIC, NORMOCEPHALIC Discharge Plan - Discharge Medications Prescriptions: Albuterol HFA [Ventolin HFA 90 mcg/actuation (8 g)] 2 puff IH [id number] #2 puff Famotidine [Pepcid] 20 mg PO HS #30 tab Fluticasone/Salmeterol 500/50 [Advair Diskus] 1 dsk IH Q12H #1 puff Sucralfate [Carafate Oral Susp] 1 gm PO 0630,1130,1630,2200 #56 udc - Follow Up Plan Condition: FAIR Disposition: HOME/ ROUTINE Additional Instructions: 1. Finish the medrol dose-stephon that was prescribed 2 days ago. 2. Follow up with primary care Doctor, Dr Gonsalez, in 1 week, to follow up on COPD, blood pressure, and gastritis. 3. Patient's blood pressure was in 100s to 110s. We have discontinued Lisinopril. 4. Home O2, New Nebulizer Referrals: Fabien Gonsalez MD [Primary Care Provider] -
[2017-06-13] MEDS: Ipratropium 0.02% Inhal Soln (0.5 mg/2.5 ml) UD IH SCH ×3 (02:45→14:21)
[2017-06-13] MEDS: Levalbuterol 0.63 MG/3 ML Inhal Soln UD IH SCH ×3 (02:45→14:21)
[2017-06-13] MEDS: Sucralfate 1 gm/10 ml Oral Susp UD PO SCH ×2 (06:02→10:44)
[2017-06-13 06:19] VITALS: O2SAT 95
[2017-06-13 07:20] LABS: BASO # 0.02 K/mm3 (0.0-2.0); BASO % 0.1 % (0.0-3.0); EOS # 0.3 (0.0-0.7); EOS % 2.2 % (1.5-5.0); GRAN # 9.84 (1.4-6.5); GRAN % 73.6 % (50.0-68.0); HEMOGLOBIN 12.2 g/dL (12.0-16.0); LYMPH # 2.5 (1.2-3.4); LYMPH % 18.3 % (22.0-35.0); MEAN CELL VOLUME 97.4 fl (80.0-105.0); MEAN CORPUSCULAR HEMOGLOBIN 31.3 pg (25.0-35.0); MEAN CORPUSCULAR HGB CONC 32.1 g/dl (31.0-37.0); MEAN PLATELET VOLUME 9.2 fl (7.0-11.0); MONO # 0.8 (0.1-0.6); MONO % 5.8 % (1.0-6.0); RBC 3.9 10^6/uL (3.5-6.1); RED CELL DISTRIBUTION WIDTH 13.2 % (11.5-14.5); WHITE BLOOD COUNT 13.4 10^3/ul (4.5-11.0)
[2017-06-13 07:32] LABS: ALB/GLOB RATIO 1.4 (1.1-1.8); ALT/SGPT 68 U/L (7-56); AST/SGOT 29 U/L (14-36); BLOOD UREA NITROGEN 11 mg/dL (7-21); CALCIUM 8.8 mg/dL (8.4-10.5); GFR AFRICAN-AMERICAN > 60; GFR NON-AFRICAN AMERICAN > 60
[2017-06-13] MEDS: cycloSPORINE 0.05 % Opth Emulsion UD OU SCH (10:44)
[2017-06-13] MEDS: AZOPT 1% OU SCH (10:47)
[2017-06-13] MEDS: FLUTICASONE FUROATE 200 MCG IH SCH (11:17)
[2017-06-13 12:17] VITALS: BP 96/64; PULSE 99; RESP 18; TEMP 98.9
--- NOTE | 2017-06-13 12:46 | CP.PCM.DIS ---
<Roxana Sanchez - Last Filed: 06/13/17 13:08> Provider - Provider Date of Admission: 06/12/17 15:07 Attending physician: Rachel Egan MD Primary care physician: Fabien Gonsalez MD Time Spent in preparation of Discharge (in minutes): 45 Diagnosis - Discharge Diagnosis (1) Nausea & vomiting Status: Acute (2) Abdominal pain Status: Acute Hospital Course - Lab Results Lab Results: Most Recent Lab Values WBC 13.4 10^3/ul (4.5-11.0) H 06/13/17 07:00 RBC 3.90 10^6/uL (3.5-6.1) 06/13/17 07:00 Hgb 12.2 g/dL (12.0-16.0) 06/13/17 07:00 Hct 38.0 % (36.0-48.0) 06/13/17 07:00 MCV 97.4 fl (80.0-105.0) 06/13/17 07:00 MCH 31.3 pg (25.0-35.0) 06/13/17 07:00 MCHC 32.1 g/dl (31.0-37.0) 06/13/17 07:00 RDW 13.2 % (11.5-14.5) 06/13/17 07:00 Plt Count 247 10^3/uL (120.0-450.0) 06/13/17 07:00 MPV 9.2 fl (7.0-11.0) 06/13/17 07:00 Gran % 73.6 % (50.0-68.0) H 06/13/17 07:00 Lymph % (Auto) 18.3 % (22.0-35.0) L 06/13/17 07:00 [place] % (Auto) 5.8 % (1.0-6.0) 06/13/17 07:00 Eos % (Auto) 2.2 % (1.5-5.0) 06/13/17 07:00 Baso % (Auto) 0.1 % (0.0-3.0) 06/13/17 07:00 Gran # 9.84 (1.4-6.5) H 06/13/17 07:00 Lymph # (Auto) 2.5 (1.2-3.4) 06/13/17 07:00 [place] # (Auto) 0.8 (0.1-0.6) H 06/13/17 07:00 Eos # (Auto) 0.3 (0.0-0.7) 06/13/17 07:00 Baso # (Auto) 0.02 K/mm3 (0.0-2.0) 06/13/17 07:00 pO2 38 mm/Hg (30-55) 06/11/17 12:30 VBG pH 7.43 (7.32-7.43) 06/11/17 12:30 VBG pCO2 56.0 (40-60) 06/11/17 12:30 VBG HCO3 37.2 mmol/l (21-28) H 06/11/17 12:30 VBG Total CO2 38.9 mmol.L (22-28) H 06/11/17 12:30 VBG O2 Sat (Calc) 77.2 % (40-65) H 06/11/17 12:30 VBG Base Excess 10.7 mmol/L (0.0-2.0) H 06/11/17 12:30 VBG Potassium 4.1 mmol/L (3.6-5.2) 06/11/17 12:30 Sodium 134.0 mmol/L (132-148) 06/11/17 12:30 Chloride 95.0 mmol/L (98-107) L 06/11/17 12:30 Glucose 106 mg/dl (65-105) H 06/11/17 12:30 Lactate 1.5 mmol/L (0.7-2.1) 06/11/17 12:30 FiO2 21.0 % 06/11/17 12:30 Sodium 137 mmol/L (132-148) 06/13/17 06:30 Potassium 4.4 mmol/L (3.6-5.0) 06/13/17 06:30 Chloride 99 mmol/L (98-107) 06/13/17 06:30 Carbon Dioxide 33 mmol/L (21-33) 06/13/17 06:30 Anion Gap 9 (10-20) L 06/13/17 06:30 BUN 11 mg/dL (7-21) 06/13/17 06:30 Creatinine 0.9 mg/dl (0.7-1.2) 06/13/17 06:30 Est GFR ( Amer) > 60 06/13/17 06:30 Est GFR (Non-Af Amer) > 60 06/13/17 06:30 Random Glucose 84 mg/dL (70-110) 06/13/17 06:30 Calcium 8.8 mg/dL (8.4-10.5) 06/13/17 06:30 Magnesium 1.7 mg/dL (1.7-2.2) 06/11/17 12:30 Total Bilirubin 0.2 mg/dL (0.2-1.3) 06/13/17 06:30 AST 29 U/L (14-36) 06/13/17 06:30 ALT 68 U/L (7-56) H 06/13/17 06:30 Alkaline Phosphatase 47 U/L (38-126) 06/13/17 06:30 Lactate Dehydrogenase 479 U/L (333-699) 06/11/17 12:00 Total Creatine Kinase 140 U/L (35-230) 06/11/17 12:00 Troponin I < 0.01 ng/mL 06/11/17 18:31 Total Protein 5.3 g/dL (5.8-8.3) L 06/13/17 06:30 Albumin 3.0 g/dL (3.0-4.8) 06/13/17 06:30 Globulin 2.2 gm/dL 06/13/17 06:30 Albumin/Globulin Ratio 1.4 (1.1-1.8) 06/13/17 06:30 Lipase 23 U/L (23-300) 06/11/17 12:00 Venous Blood Potassium 4.1 mmol/L (3.6-5.2) 06/11/17 12:30 - Hospital Course Hospital Course: 66 year old female with a past medical history of COPD (quit smoking a year ago) , dry eyes, glaucoma, osteoporosis and gastritis who was [place] [facility] [place] for a severe COPD exacerbation requiring a total of 6 days with IV steroids. She discharged with home oxygen set up at her house and four medications (Fluticasone inhaler, a six day course of methylprednisone, six day course of Protonix, and 5 mg of Lisinopril. She did not get a chance to take any of the medications except for the Protonix first thing in the morning and vomited buckets of bilious emesis. She also had concurrent pain around her anterior ribs from vomiting. In the ED the patient was found to dehydrated with electrolyte disturbances and given a GI cocktail, IV steroids, and duonebs. She was admitted for intractable nausea and vomiting and treated for gastritis with IV PPI, antiemetics, carafate, and scheduled Xopenox/Ipratropium for her COPD. She was observed on telemetry for tachycardia. She was stable throughout her hospital course and showed much improvement in her nausea and abdominal pain and she was discharged with the below written instructions and recommendations. - Date & Time of H&P Date of H&P: 06/13/17 Time of H&P: 13:16 Discharge Exam - Head Exam Head Exam: ATRAUMATIC, NORMOCEPHALIC - Eye Exam Eye Exam: EOMI, Normal appearance - Neck Exam Neck exam: Normal Inspection - Respiratory Exam Respiratory Exam: Clear to PA & Lateral, NORMAL BREATHING PATTERN. absent: Accessory Muscle Use - Cardiovascular Exam Cardiovascular Exam: RRR, +S1, +S2 - GI/Abdominal Exam GI & Abdominal Exam: Normal Bowel Sounds. absent: Distended, Rebound, Tenderness - Extremities Exam Extremities exam: normal inspection - Back Exam Back exam: NORMAL INSPECTION. absent: CVA tenderness (L), CVA tenderness (R) - Neurological Exam Neurological exam: Alert, CN II-XII Intact, Oriented x3 - Psychiatric Exam Psychiatric exam: Normal Affect, Normal Mood - Skin Skin Exam: Dry, Intact, Normal Color, Warm Discharge Plan - Discharge Medications Prescriptions: Famotidine [Pepcid] 20 mg PO HS #30 tab - Follow Up Plan Condition: FAIR Disposition: HOME/ ROUTINE Instructions: Pass [place] Diet, Dehydration (DC), Acute Abdominal Pain (DC) Additional Instructions: 1. Patient to NOT take the Medrol dose stephon previously prescribed. 2. Follow up with primary care Doctor, Dr Gonsalez, in 1 week, to follow up on COPD, blood pressure, and gastritis. 3. Patient's blood pressure has been well controlled and hence should not take Lisinopril. 4. Patient to take all medications as directed/prescribed 5. Patient to discontinue using Annuity inhaler and use the Breo Ellipta 1 puff every 12 hours. 6. Patient to use Albuterol inhaler as a rescue inhaler. Zofran for nausea. Carafate pill for gastritis. Patient to use home oxygen. 7. Patient to take Famotidine 20 mg at bedtime. Referrals: Fabien Gonsalez MD [Primary Care Provider] - <BandarCathy - Last Filed: 06/13/17 13:53> Provider - Provider Date of Admission: 06/12/17 15:07 Attending physician: Rachel Egan MD Primary care physician: Fabien Gonsalez MD Hospital Course - Lab Results Lab Results: Most Recent Lab Values WBC 13.4 10^3/ul (4.5-11.0) H 06/13/17 07:00 RBC 3.90 10^6/uL (3.5-6.1) 06/13/17 07:00 Hgb 12.2 g/dL (12.0-16.0) 06/13/17 07:00 Hct 38.0 % (36.0-48.0) 06/13/17 07:00 MCV 97.4 fl (80.0-105.0) 06/13/17 07:00 MCH 31.3 pg (25.0-35.0) 06/13/17 07:00 MCHC 32.1 g/dl (31.0-37.0) 06/13/17 07:00 RDW 13.2 % (11.5-14.5) 06/13/17 07:00 Plt Count 247 10^3/uL (120.0-450.0) 06/13/17 07:00 MPV 9.2 fl (7.0-11.0) 06/13/17 07:00 Gran % 73.6 % (50.0-68.0) H 06/13/17 07:00 Lymph % (Auto) 18.3 % (22.0-35.0) L 06/13/17 07:00 [place] % (Auto) 5.8 % (1.0-6.0) 06/13/17 07:00 Eos % (Auto) 2.2 % (1.5-5.0) 06/13/17 07:00 Baso % (Auto) 0.1 % (0.0-3.0) 06/13/17 07:00 Gran # 9.84 (1.4-6.5) H 06/13/17 07:00 Lymph # (Auto) 2.5 (1.2-3.4) 06/13/17 07:00 [place] # (Auto) 0.8 (0.1-0.6) H 06/13/17 07:00 Eos # (Auto) 0.3 (0.0-0.7) 06/13/17 07:00 Baso # (Auto) 0.02 K/mm3 (0.0-2.0) 06/13/17 07:00 pO2 38 mm/Hg (30-55) 06/11/17 12:30 VBG pH 7.43 (7.32-7.43) 06/11/17 12:30 VBG pCO2 56.0 (40-60) 06/11/17 12:30 VBG HCO3 37.2 mmol/l (21-28) H 06/11/17 12:30 VBG Total CO2 38.9 mmol.L (22-28) H 06/11/17 12:30 VBG O2 Sat (Calc) 77.2 % (40-65) H 06/11/17 12:30 VBG Base Excess 10.7 mmol/L (0.0-2.0) H 06/11/17 12:30 VBG Potassium 4.1 mmol/L (3.6-5.2) 06/11/17 12:30 Sodium 134.0 mmol/L (132-148) 06/11/17 12:30 Chloride 95.0 mmol/L (98-107) L 06/11/17 12:30 Glucose 106 mg/dl (65-105) H 06/11/17 12:30 Lactate 1.5 mmol/L (0.7-2.1) 06/11/17 12:30 FiO2 21.0 % 06/11/17 12:30 Sodium 137 mmol/L (132-148) 06/13/17 06:30 Potassium 4.4 mmol/L (3.6-5.0) 06/13/17 06:30 Chloride 99 mmol/L (98-107) 06/13/17 06:30 Carbon Dioxide 33 mmol/L (21-33) 06/13/17 06:30 Anion Gap 9 (10-20) L 06/13/17 06:30 BUN 11 mg/dL (7-21) 06/13/17 06:30 Creatinine 0.9 mg/dl (0.7-1.2) 06/13/17 06:30 Est GFR ( Amer) > 60 06/13/17 06:30 Est GFR (Non-Af Amer) > 60 06/13/17 06:30 Random Glucose 84 mg/dL (70-110) 06/13/17 06:30 Calcium 8.8 mg/dL (8.4-10.5) 06/13/17 06:30 Magnesium 1.7 mg/dL (1.7-2.2) 06/11/17 12:30 Total Bilirubin 0.2 mg/dL (0.2-1.3) 06/13/17 06:30 AST 29 U/L (14-36) 06/13/17 06:30 ALT 68 U/L (7-56) H 06/13/17 06:30 Alkaline Phosphatase 47 U/L (38-126) 06/13/17 06:30 Lactate Dehydrogenase 479 U/L (333-699) 06/11/17 12:00 Total Creatine Kinase 140 U/L (35-230) 06/11/17 12:00 Troponin I < 0.01 ng/mL 06/11/17 18:31 Total Protein 5.3 g/dL (5.8-8.3) L 06/13/17 06:30 Albumin 3.0 g/dL (3.0-4.8) 06/13/17 06:30 Globulin 2.2 gm/dL 06/13/17 06:30 Albumin/Globulin Ratio 1.4 (1.1-1.8) 06/13/17 06:30 Lipase 23 U/L (23-300) 06/11/17 12:00 Venous Blood Potassium 4.1 mmol/L (3.6-5.2) 06/11/17 12:30 Attending/Attestation - Attestation I have personally seen and examined this patient.: Yes I have fully participated in the care of the patient.: Yes I have reviewed all pertinent clinical information, including history, physical exam and plan: Yes Notes (Text): 06/13/17 13:49 DIAGNOSIS. Intractable Nausea and vomiting due to Peptic ulcer disease Hypokalemia Medical record note made by the resident after discussion with my direction and input after the patient was personally seen and examined by me. I have reviewed the chart and agree that the record accurately reflects by personal performance of the history, physical exam, data review, and medical decision-making, in the course for the patient. I have also personally directed the plan of care. 66 year old female with PMH of COPD on home oxygen,Pepetic ulcer disease, CHF with systolic dysfunction EF 44% was recently discharged from hospital after treatment of COPD exacerbation was admitted with intractable Nausea, vomiting, epigastric pain due to peptic ulcer disease.Patient was also found to have hypokalemia and leukocytosis (due to stress response, also was on steroid.There is no evidence of infection.) Patient symptoms has improved.Nausea and vomiting has resolved.Abdominal pain has improved.Tachycardia is better.Hypokalemia has improved. WBC is coming down.She is afebrile.She is tolerating diet.She will be discharged home and will follow up with PCP and GI.She has been advised not to NSAID. Management plan was discussed in detail with patient. Education was provided. 06/13/17 13:52
== END 2017-06-13 15:21 | disposition home or self-care (01) | DRG 384 ==
LOC: ED 11:25 → ERH 13:40 → 2RNO 15:26 → OBSVTOIN 06-12 15:07
PROVIDERS: ADMIT Hospitalist; ATTEND Hospitalist
DX: K27.9 Peptic ulcer, site unspecified, unspecified as acute or chronic, without hemorrhage or perforation (principal); J44.1 Chronic obstructive pulmonary disease with (acute) exacerbation; I50.22 Chronic systolic (congestive) heart failure; K29.70 Gastritis, unspecified, without bleeding; E86.0 Dehydration; E87.6 Hypokalemia; H40.9 Unspecified glaucoma; Z79.52 Long term (current) use of systemic steroids; Z87.891 Personal history of nicotine dependence; Z90.710 Acquired absence of both cervix and uterus; Z99.81 Dependence on supplemental oxygen; M81.0 Age-related osteoporosis without current pathological fracture; R00.0 Tachycardia, unspecified; T48.6X5A Adverse effect of antiasthmatics, initial encounter; T44.3X5A Adverse effect of other parasympatholytics [anticholinergics and antimuscarinics] and spasmolytics, initial encounter; R40.2412 Glasgow coma scale score 13-15, at arrival to emergency department; Z88.0 Allergy status to penicillin; Z91.012 Allergy to eggs; Z87.892 Personal history of anaphylaxis

== ENCOUNTER 2017-07-12 12:51 | Observation (INO) | payer MEDICARE, OTHER ==
[2017-07-12 13:05] VITALS: BMI 19.9
--- NOTE | 2017-07-12 13:35 | ED PDOC ---
Arrival/HPI - General Historian: Patient - History of Present Illness Time/Duration: 1 week Symptom Onset: Sudden Symptom Course: Worsening Activities at Onset: Light Context: Home - General Chief Complaint: Allergic Reaction Time Seen by Provider: 07/12/17 12:57 - History of Present Illness Narrative History of Present Illness (Text): 07/12/17 13:31 66 year old female, whose past medical history includes COPD, presents to the emergency department complaining of a full body rash for a week. Patient notes 1 week ago she began experiencing itchy welts all over her body and difficulty breathing. Pt went to urgent care 2 days later where she was given a prescription for the rash. Since then patient experienced minimal relief and feels she has gotten worse. Patient notes she has tried several home remedies with no relief. Patient was admitted last month to the hospital for COPD and a respiratory infection. Patient denies any fever, chills, chest pain, shortness of breath, nausea, vomiting, diarrhea, back pain, neck pain, headache, dizziness , or any other complaints. (Micki Wilburn) Past Medical History - Provider Review Nursing Documentation Reviewed: Yes - Travel History Have you recently traveled outside [place] w/in the past 3 mons?: No - Infectious Disease Hx of Infectious Diseases: None - Tetanus Immunization Tetanus Immunization: Unknown - Cardiac Hx Cardiac Disorders: No - Pulmonary Hx Respiratory Disorders: Yes Hx Asthma: Yes Hx Chronic Obstructive Pulmonary Disease (COPD): Yes - Neurological Hx Neurological Disorder: No - HEENT Hx HEENT Disorder: Yes Hx Glaucoma: Yes Other/Comment: dry eyes - Renal Hx Renal Disorder: No - Endocrine/Metabolic Hx Endocrine Disorders: No - Hematological/Oncological Hx Blood Disorders: No - Integumentary Hx Dermatological Disorder: No - Musculoskeletal/Rheumatological Hx Musculoskeletal Disorders: No Hx Falls: No - Gastrointestinal Hx Gastrointestinal Disorders: No - Genitourinary/Gynecological Hx Genitourinary Disorders: No - Psychiatric Hx Psychophysiologic Disorder: No Hx Substance Use: No - Surgical History Other/Comment: S/P hysterectomy, breast implants, tonsillectomy, eye sx - Anesthesia Hx Anesthesia: Yes Hx Anesthesia Reactions: No - Suicidal Assessment Feels Threatened In Home Enviroment: No Family/Social History - Physician Review Nursing Documentation Reviewed: Yes Family/Social History: Unknown Family HX Smoking Status: Light Smoker < 10 Cigarettes Daily Hx Alcohol Use: No Hx Substance Use: No Hx Substance Use Treatment: No Allergies/Home Meds Allergies/Adverse Reactions: Allergies amoxicillin Allergy (Verified 07/12/17 13:08) ANAPHYLAXIS EGG Allergy (Verified 06/11/17 11:48) ANAPHYLAXIS Home Medications: Home Meds Medication Instructions Recorded Confirmed Omeprazole 20 mg PO DAILY 07/12/17 07/12/17 cycloSPORINE [Restasis] 3 ea OU Q12 07/12/17 07/12/17 Review of Systems - Physician Review All systems were reviewed & negative as marked: Yes - Review of Systems Constitutional: Normal Eyes: Normal ENT: Normal Respiratory: Normal. absent: SOB, Cough Cardiovascular: Normal. absent: Chest Pain Gastrointestinal: Normal. absent: Abdominal Pain Genitourinary Female: Normal. absent: Dysuria, Frequency, Hematuria, Urine Output Changes Musculoskeletal: Normal. absent: Back Pain, Neck Pain Skin: Rash (rash on entire body) Neurological: Normal. absent: Headache, Dizziness Endocrine: Normal Hemo/Lymphatic: Normal Psychiatric: Normal Physical Exam Vital Signs Reviewed: Yes Temperature: Afebrile Blood Pressure: Normal Pulse: Tachycardic Respiratory Rate: Normal Appearance: Positive for: Well-Appearing, Non-Toxic, Comfortable Pain Distress: None Mental Status: Positive for: Alert and Oriented X 3 - Systems Exam Head: Present: Atraumatic, Normocephalic Pupils: Present: PERRL Extroacular Muscles: Present: EOMI Conjunctiva: Present: Normal Mouth: Present: Moist Mucous Membranes Neck: Present: Normal Range of Motion Respiratory/Chest: Present: Clear to Auscultation, Good Air Exchange. No: Respiratory Distress, Accessory Muscle Use Cardiovascular: Present: Regular Rate and Rhythm, Normal S1, S2. No: Murmurs Abdomen: No: Tenderness, Distention, Peritoneal Signs Back: Present: Normal Inspection Upper Extremity: Present: Normal Inspection. No: Cyanosis, Edema Lower Extremity: Present: Normal Inspection. No: Edema Neurological: Present: GCS=15, CN II-XII Intact, Speech Normal Skin: Present: Warm, Dry, Rashes (hypersensitivity rash, urticaria, macular/ hives, petechia on arms, hands, legs, and feet) Psychiatric: Present: Alert, Oriented x 3, Normal Insight, Normal Concentration Vital Signs Temp Pulse Resp BP Pulse Ox 07/12/17 20:07 99 H 20 132/72 95 07/12/17 18:48 98.2 F 109 H 20 136/80 07/12/17 13:04 98.2 F 109 H 20 136/80 95 Medical Decision Making ED Course and Treatment: 07/12/17 13:39 Impression: 66 year old female who presents to the emergency department complaining of a rash over her entire body. Differential Diagnosis included but are not limited to: Vasculitis: Urticarial vs hypersensitivity Plan: -- Labs -- Prednisone and Benadryl STAT -- Urinalysis -- Reassess and disposition Prior Visits: Notes and results from previous visits were reviewed. Patient was last seen in the emergency department on 06/11/17. Pt was admitted for COPD and a respiratory infection. Progress Notes: Pt had temporary relief of redness and pruritus only to return Pt added to her history that she had the same dermal reaction 2 times before which was treated with prednisone and benadryl Case discussed with Dr. Garcia and evaluated pt bedside Methylprednisolone and H2 ladonna added DuoNeb Tx as pt developed dyspnea No significant change in status; decision was made to admit as per Dr Radha Garcia handled arrangements with hospitalist 07/12/17 14:01 (Micki Wilburn) Patient seen and evaluated with PA. Patient's history reviewed in depth with patient and family. She has provided iphone picture of her rash that has been intermittent for over a month. On exam, there is no pus or bleeding or abscess. No fever. Patient's rash has appearance of allergic-type reaction, rash similar to prior allergic reactions to antibiotics. Have administered steroids, pepcid, benadryl with minimal to no improvement and patient on re-exam complains of component of sob, thus will admit for monitoring of symptoms. Have recommended dermatology evaluation. (Eitan Garcia) - Lab Interpretations Lab Results: 07/12/17 14:45 07/12/17 14:45 Lab Results 07/12/17 15:00: Urine Color yellow, Urine Appearance Clear, Urine pH 7.5, Ur Specific [place] 1.015, Urine Protein Negative, Urine Glucose (UA) Negative, Urine Ketones Negative, Urine Blood Negative, Urine Nitrate Negative, Urine Bilirubin Negative, Urine Urobilinogen 0.2, Ur Leukocyte Esterase Negative 07/12/17 14:45: Sodium 144, Potassium 3.8, Chloride 105, Carbon Dioxide 27, Anion Gap 17, BUN 15, Creatinine 0.9, Est GFR ( Amer) > 60, Est GFR (Non- Af Amer) > 60, Random Glucose 87, Calcium 9.6, Total Bilirubin 0.2, AST 23, ALT 31, Alkaline Phosphatase 68, Total Protein 6.8, Albumin 4.2, Globulin 2.6, Albumin/Globulin Ratio 1.6 07/12/17 14:45: WBC 13.2 H, RBC 4.34, Hgb 13.8, Hct 41.0, MCV 94.5, MCH 31.8, MCHC 33.7, RDW 13.3, Plt Count 329, MPV 9.2, Gran % 61.4, Lymph % (Auto) 29.8, Mcdonald % (Auto) 8.3 H, Eos % (Auto) 0.4 L, Baso % (Auto) 0.1, Gran # 8.10 H, Lymph # (Auto) 3.9 H, Mcdonald # (Auto) 1.1 H, Eos # (Auto) 0.1, Baso # (Auto) 0.01 - RAD Interpretation Radiology Orders: 07/12/17 17:36 CHEST PORTABLE [RAD] Stat - Medication Orders Current Medication Orders: Discontinued Medications Albuterol/Ipratropium (Duoneb 3 Mg/0.5 Mg (3 Ml) Ud) 3 ml IH STAT STA Stop: 07/12/17 17:37 Last Admin: 07/12/17 18:38 Dose: 3 ml Albuterol/Ipratropium (Duoneb 3 Mg/0.5 Mg (3 Ml) Ud) 3 ml IH [id number] PRN PRN Reason: Shortness of Breath Diphenhydramine HCl (Benadryl) 50 mg IM STAT STA Stop: 07/12/17 14:00 Last Admin: 07/12/17 14:55 Dose: Diphenhydramine HCl (Benadryl) 25 mg IVP STAT STA Stop: 07/12/17 14:22 Last Admin: 07/12/17 14:43 Dose: 25 mg IVP Administration Document 07/12/17 14:43 SS (Rec: 07/12/17 14:43 SS [id number]) Charges for Administration # of IVP Administrations 1 Diphenhydramine HCl (Benadryl) 25 mg IVP ONCE ONE Stop: 07/12/17 17:36 Last Admin: 07/12/17 18:38 Dose: 25 mg IVP Administration Document 07/12/17 18:38 SS (Rec: 07/12/17 18:38 SS [id number]) Charges for Administration # of IVP Administrations 1 Diphenhydramine HCl (Benadryl) 25 mg PO Q6 PRN PRN Reason: Itching / Pruritus Last Admin: 07/13/17 02:36 Dose: 25 mg Diphenhydramine HCl (Benadryl) 25 mg PO ONCE ONE Stop: 07/13/17 07:54 Last Admin: 07/13/17 08:04 Dose: 25 mg Famotidine (Pepcid 20mg/50ml Premix) 20 mg IVPB STAT STA Stop: 07/12/17 16:15 Last Admin: 07/12/17 16:28 Dose: 20 mg eMAR Start Stop Document 07/12/17 16:28 SS (Rec: 07/12/17 16:[address]) Intravenous Solution Start Date 07/12/17 Start Time 16:28 End Date 07/12/17 End time 17:00 Total Infusion Time 32 Famotidine (Pepcid) 20 mg IVP DAILY [facility] Famotidine (Pepcid) 20 mg IVP BID [facility] Last Admin: 07/13/17 10:59 Dose: 20 mg IVP Administration Document 07/13/17 10:59 MARK (Rec: 07/13/17 10:59 [facility] [id number]) Charges for Administration # of IVP Administrations 1 Hydrocortisone (Cortizone 1% Cream) 0 gm TOP BID [facility] Last Admin: 07/13/17 10:59 Dose: 1 applic Methylprednisolone (Solu-Medrol) 40 mg IVP STAT STA Stop: 07/12/17 16:16 Last Admin: 07/12/17 16:25 Dose: 40 mg IVP Administration Document 07/12/17 16:25 SS (Rec: 07/12/17 16:28 SS [id number]) Charges for Administration # of IVP Administrations 1 Methylprednisolone (Solu-Medrol) 40 mg IVP Q8H [facility] Last Admin: 07/13/17 10:59 Dose: 40 mg IVP Administration Document 07/13/17 10:59 MARK (Rec: 07/13/17 10:59 [facility] [id number]) Charges for Administration # of IVP Administrations 1 Montelukast Sodium (Singulair) 10 mg PO HS [facility] Last Admin: 07/12/17 22:02 Dose: 10 mg Prednisone (Prednisone Tab) 40 mg PO STAT STA Stop: 07/12/17 13:58 Last Admin: 07/12/17 14:43 Dose: 40 mg - Scribe Statement The provider has reviewed the documentation as recorded by the Scribe - Scribe Statement Kathy Su All medical record entries made by the Youibe were at my direction and personally dictated by me. I have reviewed the chart and agree that the record accurately reflects my personal performance of the history, physical exam, medical decision making, and the department course for this patient. I have also personally directed, reviewed, and agree with the discharge instructions and disposition. (Micki Wilburn) Disposition/Present on Arrival - Present on Arrival Any Indicators Present on Arrival: Yes History of DVT/PE: No History of Uncontrolled Diabetes: No Urinary Catheter: No History of Decub. Ulcer: No History Surgical Site Infection Following: None - Disposition Have Diagnosis and Disposition been Completed?: Yes Disposition Time: 18:00 Patient Plan: Admission - Disposition Diagnosis: Dermal hypersensitivity reaction, Allergic reaction, COPD exacerbation Disposition: HOSPITALIZED Condition: STABLE
[2017-07-12] MEDS ORDERED: DiphenhydrAMINE 50 mg/ml Inj IM STA (13:59)
[2017-07-12] MEDS ORDERED: DiphenhydrAMINE 50 mg/ml Inj IVP STA (14:21)
[2017-07-12 15:02] LABS: BASO # 0.01 K/mm3 (0.0-2.0); BASO % 0.1 % (0.0-3.0); EOS # 0.1 (0.0-0.7); EOS % 0.4 % (1.5-5.0); GRAN # 8.1 (1.4-6.5); GRAN % 61.4 % (50.0-68.0); HEMOGLOBIN 13.8 g/dL (12.0-16.0); LYMPH # 3.9 (1.2-3.4); LYMPH % 29.8 % (22.0-35.0); MEAN CELL VOLUME 94.5 fl (80.0-105.0); MEAN CORPUSCULAR HEMOGLOBIN 31.8 pg (25.0-35.0); MEAN CORPUSCULAR HGB CONC 33.7 g/dl (31.0-37.0); MEAN PLATELET VOLUME 9.2 fl (7.0-11.0); MONO # 1.1 (0.1-0.6); MONO % 8.3 % (1.0-6.0); RBC 4.34 10^6/uL (3.5-6.1); RED CELL DISTRIBUTION WIDTH 13.3 % (11.5-14.5); WHITE BLOOD COUNT 13.2 10^3/ul (4.5-11.0)
[2017-07-12 15:11] LABS: ALB/GLOB RATIO 1.6 (1.1-1.8); ALBUMIN 4.2 g/dL (3.0-4.8); ALT/SGPT 31 U/L (7-56); AST/SGOT 23 U/L (14-36); BLOOD UREA NITROGEN 15 mg/dL (7-21); CALCIUM 9.6 mg/dL (8.4-10.5); GFR AFRICAN-AMERICAN > 60; GFR NON-AFRICAN AMERICAN > 60
[2017-07-12 15:58] LABS: PH,URINE 7.5 (4.7-8.0); URINE BILIRUBIN NEGATIVE (NEGATIVE); URINE BLOOD NEGATIVE (NEGATIVE); URINE GLUCOSE (UA) NEGATIVE (NEGATIVE); URINE LEUKOCYTE ESTERASE NEGATIVE Leu/uL (NEGATIVE); URINE PROTEIN NEGATIVE mg/dL (<30 mg/dL); URINE UROBILINOGEN 0.2 E.U./dL (<1 E.U./dL)
[2017-07-12 16:08] LABS: URINE APPEARANCE CLEAR (CLEAR)
[2017-07-12] MEDS ORDERED: Famotidine 20mg/50ml Premix IVPB STA (16:14)
[2017-07-12] MEDS ORDERED: MethylPREDNISolone 40 mg Vial IVP STA (16:15)
[2017-07-12] MEDS ORDERED: DiphenhydrAMINE 50 mg/ml Inj IVP ONE (17:35)
[2017-07-12] MEDS ORDERED: Albuterol-Ipratrop 3 mg / 0.5 (3 ml) UD IH STA (17:36)
--- NOTE | 2017-07-12 18:28 | CP.PCM.HP ---
<Cherry Jerome - Last Filed: 07/12/17 21:25> History of Present Illness - History of Present Illness History of Present Illness: CC: I have a rash HPI: Patient is a 66 year old female with past medical history of COPD presents to [facility] for diffuse pruritic rash. Patient states that the rash started on Thursday and has been getting progressively worse. She states that she went to Urgent care on Thursday where they prescribed her Prednisone, Benadryl and Yamilex. Patient took these medications with minimal relief in symptoms. She saw Dr Gonsalez last week also, who prescribed her Singulair. Patient denies any recent travel, sick contacts, recent change in detergent, new medications or changes in medications. She states that this has happened to her before when she took amoxicillin. At this time she admits to having diffuse itchiness that has improved after being treated in the ED. Denies fevers, chills, headaches, dizziness, cp, palpitations, sob, abdominal pain, urinary symptoms, changes in bowel habits. ED course: Duonebs, Benadryl 50mg x 1, Benadryl 25mg x 1, Solumedrol 40mg IVP, Prednisone 40mg, Pepcid 20mg x 1 PMD: Dr Gonsalez Allergies: Amoxicillin, Egg Medications: Omeprazole 20mg PO daily, Restasis, Ventolin inhaler, Symbicort Medical History: COPD, gastritis, dry eyes Surgical History: Hysterectomy, Breast implants, Tonsillectomy, Eye surgery Social History: Quit smoking 1 year ago, denies alcohol, drug use Family History: Denies Present on Admission - Present on Admission Any Indicators Present on Admission: No Past Patient History - Infectious Disease Hx of Infectious Diseases: None - Tetanus Immunizations Tetanus Immunization: Unknown - Past Social History Smoking Status: Light Smoker < 10 Cigarettes Daily - CARDIAC Hx Cardiac Disorders: No - PULMONARY Hx Respiratory Disorders: Yes Hx Asthma: Yes Hx Chronic Obstructive Pulmonary Disease (COPD): Yes - NEUROLOGICAL Hx Neurological Disorder: No - HEENT Hx HEENT Problems: Yes Hx Glaucoma: Yes Other/Comment: dry eyes - RENAL Hx Chronic Kidney Disease: No - ENDOCRINE/METABOLIC Hx Endocrine Disorders: No - HEMATOLOGICAL/ONCOLOGICAL Hx Blood Disorders: No - INTEGUMENTARY Hx Dermatological Problems: No - MUSCULOSKELETAL/RHEUMATOLOGICAL Hx Musculoskeletal Disorders: No Hx Falls: No - GASTROINTESTINAL Hx Gastrointestinal Disorders: No - GENITOURINARY/GYNECOLOGICAL Hx Genitourinary Disorders: No - PSYCHIATRIC Hx Psychophysiologic Disorder: No Hx Substance Use: No - SURGICAL HISTORY Other/Comment: S/P hysterectomy, breast implants, tonsillectomy, eye sx - ANESTHESIA Hx Anesthesia: Yes Hx Anesthesia Reactions: No Meds Allergies/Adverse Reactions: Allergies Allergy/AdvReac Type Severity Reaction Status Date / Time amoxicillin Allergy ANAPHYLAXIS Verified 07/12/17 13:08 EGG Allergy ANAPHYLAXIS Verified 06/11/17 11:48 Physical Exam - Constitutional Appears: Non-toxic, No Acute Distress - Head Exam Head Exam: ATRAUMATIC, NORMAL INSPECTION, NORMOCEPHALIC - Eye Exam Eye Exam: EOMI, Normal appearance Pupil Exam: NORMAL ACCOMODATION - ENT Exam ENT Exam: Mucous Membranes Moist, Normal Exam - Neck Exam Neck exam: Positive for: Normal Inspection - Respiratory Exam Respiratory Exam: Clear to Auscultation Bilateral, NORMAL BREATHING PATTERN. absent: Rales, Rhonchi, Wheezes - Cardiovascular Exam Cardiovascular Exam: REGULAR RHYTHM, +S1, +S2 - GI/Abdominal Exam GI & Abdominal Exam: Normal Bowel Sounds, Soft. absent: Guarding, Rebound, Rigid, Tenderness - Extremities Exam Extremities exam: Positive for: pedal pulses present - Back Exam Back exam: NORMAL INSPECTION - Neurological Exam Neurological exam: Alert, CN II-XII Intact, Normal Gait, Oriented x3 - Psychiatric Exam Psychiatric exam: Normal Affect, Normal Mood - Skin Skin Exam: Dry, Rash, Warm Additional comments: Patient has diffuse rash on bilateral forearms with scratch cash Patient also has redness on her left hip, lower back, groin area Results - Vital Signs Recent Vital Signs: Last Vital Signs Temp 98.2 F 07/12/17 13:04 Pulse 109 H 07/12/17 13:04 Resp 20 07/12/17 13:04 BP 136/80 07/12/17 13:04 Pulse Ox 95 07/12/17 13:04 - Labs Result Diagrams: 07/12/17 14:45 07/12/17 14:45 Assessment & Plan - Assessment and Plan (Free Text) Assessment: Patient is a 66 year old female with past medical history of COPD presents to [facility] for diffuse pruritic rash. Diffuse Pruritic Rash -Will admit to Med/Surg -Solumedrol 40mg IVP Q8H [facility] -Benadryl 25mg PO Q6H prn itchiness -May consider adding Vistiril -ID on consult, Dr Weeks, help appreciated Leukocytosis -WBC 13.2 on admission -Likely elevated secondary to steroid use -Continue to monitor History of COPD -Duonebs Q6H prn sob -Singulair 10mg PO HS GI/DVT ppx: -Pepcid 20mg IVP daily -SCDs Plan discussed with Dr Whitt <Edie Whitt - Last Filed: 07/16/17 05:47> Results - Vital Signs Recent Vital Signs: Last Vital Signs Temp 98.1 F 07/13/17 07:00 Pulse 91 H 07/13/17 07:00 Resp 20 07/13/17 07:00 BP 122/75 07/13/17 07:00 Pulse Ox 96 07/13/17 07:00 - Labs Result Diagrams: 07/13/17 06:15 07/13/17 06:15 Labs: Laboratory Results - last 24 hr 07/13/17 11:45 JO ANN Screen Negative JO ANN Titer TEST NOT PERFORMED JO ANN Titer 2 TEST NOT PERFORMED JO ANN Pattern TEST NOT PERFORMED JO ANN Pattern 2 TEST NOT PERFORMED ANCA Screen Negative c-ANCA Titer TNP Proteinase 3 (PR3) <1.0 p-ANCA Titer TNP Atypical p-ANCA Titer TNP Myeloperoxidase Ab <1.0 Histone Antibodies <1.0 Attending/Attestation - Attestation I have personally seen and examined this patient.: Yes I have fully participated in the care of the patient.: Yes I have reviewed all pertinent clinical information: Yes Notes (Text): 07/16/17 05:46 Agree with history, physical examination, assessment and plan.
[2017-07-12 19:41] LABS: INR 0.92 (0.93-1.08); PARTIAL THROMBOPLASTIN TIME 21.8 Seconds (25.1-36.5); PROTHROMBIN TIME 10.5 SECONDS (9.4-12.5)
[2017-07-12 19:53] LABS: B-TYPE NATRIURETIC PEPTIDE 448 pg/mL (0-450); TROPONIN I < 0.01 ng/mL
[2017-07-12] MEDS: MethylPREDNISolone 40 mg Vial IVP SCH (20:06)
[2017-07-12] MEDS ORDERED: Albuterol-Ipratrop 3 mg / 0.5 (3 ml) UD IH PRN (20:57)
[2017-07-12] MEDS ORDERED: cycloSPORINE 0.05 % Opth Emulsion UD OU SCH (22:00)
[2017-07-13] MEDS: MethylPREDNISolone 40 mg Vial IVP SCH ×2 (02:36→10:59)
[2017-07-13 06:34] VITALS: BP 122/75; TEMP 98.1
[2017-07-13 06:57] LABS: GRAN # 10.09 (1.4-6.5); GRAN % 87.7 % (50.0-68.0); HEMOGLOBIN 13.8 g/dL (12.0-16.0); LYMPH # 1.1 (1.2-3.4); LYMPH % 9.3 % (22.0-35.0); MEAN CELL VOLUME 94.6 fl (80.0-105.0); MEAN CORPUSCULAR HEMOGLOBIN 31.1 pg (25.0-35.0); MEAN CORPUSCULAR HGB CONC 32.9 g/dl (31.0-37.0); MEAN PLATELET VOLUME 9.2 fl (7.0-11.0); MONO # 0.3 (0.1-0.6); RBC 4.44 10^6/uL (3.5-6.1); RED CELL DISTRIBUTION WIDTH 13.3 % (11.5-14.5); WHITE BLOOD COUNT 11.5 10^3/ul (4.5-11.0)
[2017-07-13 07:32] VITALS: PULSE 91; RESP 20; O2SAT 96
[2017-07-13 07:41] LABS: ALB/GLOB RATIO 1.8 (1.1-1.8); ALBUMIN 4.3 g/dL (3.0-4.8); ALT/SGPT 27 U/L (7-56); AST/SGOT 26 U/L (14-36); BLOOD UREA NITROGEN 19 mg/dL (7-21); CALCIUM 9.5 mg/dL (8.4-10.5); GFR AFRICAN-AMERICAN > 60; GFR NON-AFRICAN AMERICAN > 60
--- NOTE | 2017-07-13 08:28 | CP.PCM.PN ---
Objective - Vital Signs/Intake and Output Vital Signs (last 24 hours): Temp Pulse Resp BP Pulse Ox 98.1 F 91 H 20 122/75 96 07/13/17 07:00 07/13/17 07:00 07/13/17 07:00 07/13/17 07:00 07/13/17 07:00 Intake and Output: 07/13/17 07/13/17 06:59 18:59 Intake Total 180 Balance 180 - Medications Medications: Current Medications Albuterol/Ipratropium (Duoneb 3 Mg/0.5 Mg (3 Ml) Ud) 3 ml IH [id number] PRN PRN Reason: Shortness of Breath Diphenhydramine HCl (Benadryl) 25 mg PO Q6 PRN PRN Reason: Itching / Pruritus Last Admin: 07/13/17 02:36 Dose: 25 mg Famotidine (Pepcid) 20 mg IVP BID [facility] Methylprednisolone (Solu-Medrol) 40 mg IVP Q8H [facility] Last Admin: 07/13/17 02:36 Dose: 40 mg Montelukast Sodium (Singulair) 10 mg PO HS [facility] Last Admin: 07/12/17 22:02 Dose: 10 mg - Labs Labs: 07/13/17 06:15 07/13/17 06:15 PT 10.5 SECONDS (9.4-12.5) 07/12/17 19:15 INR 0.92 (0.93-1.08) L 07/12/17 19:15 APTT 21.8 Seconds (25.1-36.5) L 07/12/17 19:15
--- NOTE | 2017-07-13 08:41 | RAD ---
HISTORY: sob COMPARISON: 06/11/2017 FINDINGS: LUNGS: No active pulmonary disease. PLEURA: No significant pleural effusion identified, no pneumothorax apparent. CARDIOVASCULAR: Normal. OSSEOUS STRUCTURES: No significant abnormalities. VISUALIZED UPPER ABDOMEN: Normal. OTHER FINDINGS: Calcified breast implants IMPRESSION: No active disease.
[2017-07-13] MEDS ORDERED: Hydrocortisone 1% Cream (30 GM) TOP SCH (10:00)
[2017-07-13] MEDS ORDERED: Famotidine 20mg/50ml 20 MG/50 ML BAG IVPB SCH (10:00)
--- NOTE | 2017-07-13 11:49 | CP.PCM.DIS ---
<Star Jiang - Last Filed: 07/13/17 14:36> Provider - Provider Date of Admission: 07/12/17 17:54 Attending physician: Rachel Egan MD Primary care physician: Fabien Gonsalez MD Consults: ID: Dr. [email or web address] Time Spent in preparation of Discharge (in minutes): 45 Diagnosis - Discharge Diagnosis (1) Dermal hypersensitivity reaction Status: Acute (2) Maculopapular rash Status: Acute Hospital Course - Lab Results Lab Results: Most Recent Lab Values WBC 11.5 10^3/ul (4.5-11.0) H 07/13/17 06:15 RBC 4.44 10^6/uL (3.5-6.1) 07/13/17 06:15 Hgb 13.8 g/dL (12.0-16.0) 07/13/17 06:15 Hct 42.0 % (36.0-48.0) 07/13/17 06:15 MCV 94.6 fl (80.0-105.0) 07/13/17 06:15 MCH 31.1 pg (25.0-35.0) 07/13/17 06:15 MCHC 32.9 g/dl (31.0-37.0) 07/13/17 06:15 RDW 13.3 % (11.5-14.5) 07/13/17 06:15 Plt Count 335 10^3/uL (120.0-450.0) 07/13/17 06:15 MPV 9.2 fl (7.0-11.0) 07/13/17 06:15 Gran % 87.7 % (50.0-68.0) H 07/13/17 06:15 Lymph % (Auto) 9.3 % (22.0-35.0) L 07/13/17 06:15 [place] % (Auto) 3.0 % (1.0-6.0) 07/13/17 06:15 Eos % (Auto) 0.0 % (1.5-5.0) L 07/13/17 06:15 Baso % (Auto) 0.0 % (0.0-3.0) 07/13/17 06:15 Gran # 10.09 (1.4-6.5) H 07/13/17 06:15 Lymph # (Auto) 1.1 (1.2-3.4) L 07/13/17 06:15 [place] # (Auto) 0.3 (0.1-0.6) 07/13/17 06:15 Eos # (Auto) 0.0 (0.0-0.7) 07/13/17 06:15 Baso # (Auto) 0.00 K/mm3 (0.0-2.0) 07/13/17 06:15 PT 10.5 SECONDS (9.4-12.5) 07/12/17 19:15 INR 0.92 (0.93-1.08) L 07/12/17 19:15 APTT 21.8 Seconds (25.1-36.5) L 07/12/17 19:15 Sodium 143 mmol/L (132-148) 07/13/17 06:15 Potassium 4.1 mmol/L (3.6-5.0) 07/13/17 06:15 Chloride 101 mmol/L (98-107) 07/13/17 06:15 Carbon Dioxide 26 mmol/L (21-33) 07/13/17 06:15 Anion Gap 20 (10-20) 07/13/17 06:15 BUN 19 mg/dL (7-21) 07/13/17 06:15 Creatinine 0.9 mg/dl (0.7-1.2) 07/13/17 06:15 Est GFR ( Amer) > 60 07/13/17 06:15 Est GFR (Non-Af Amer) > 60 07/13/17 06:15 Random Glucose 202 mg/dL (70-110) H 07/13/17 06:15 Calcium 9.5 mg/dL (8.4-10.5) 07/13/17 06:15 Phosphorus 4.2 mg/dL (2.5-4.5) 07/13/17 06:15 Magnesium 2.3 mg/dL (1.7-2.2) H 07/13/17 06:15 Total Bilirubin 0.2 mg/dL (0.2-1.3) 07/13/17 06:15 AST 26 U/L (14-36) 07/13/17 06:15 ALT 27 U/L (7-56) 07/13/17 06:15 Alkaline Phosphatase 58 U/L (38-126) 07/13/17 06:15 Lactate Dehydrogenase 666 U/L (333-699) 07/12/17 19:15 Total Creatine Kinase 61 U/L (35-230) 07/12/17 19:15 Troponin I < 0.01 ng/mL 07/12/17 19:15 NT-Pro-B Natriuret Pep 448 pg/mL (0-450) 07/12/17 19:15 Total Protein 6.8 g/dL (5.8-8.3) 07/13/17 06:15 Albumin 4.3 g/dL (3.0-4.8) 07/13/17 06:15 Globulin 2.5 gm/dL 07/13/17 06:15 Albumin/Globulin Ratio 1.8 (1.1-1.8) 07/13/17 06:15 Urine Color yellow (YELLOW) 07/12/17 15:00 Urine Appearance Clear (CLEAR) 07/12/17 15:00 Urine pH 7.5 (4.7-8.0) 07/12/17 15:00 Ur Specific [place] 1.015 (1.005-1.035) 07/12/17 15:00 Urine Protein Negative mg/dL (<30 mg/dL) 07/12/17 15:00 Urine Glucose (UA) Negative mg/dL (NEGATIVE) 07/12/17 15:00 Urine Ketones Negative mg/dL (NEGATIVE) 07/12/17 15:00 Urine Blood Negative (NEGATIVE) 07/12/17 15:00 Urine Nitrate Negative (NEGATIVE) 07/12/17 15:00 Urine Bilirubin Negative (NEGATIVE) 07/12/17 15:00 Urine Urobilinogen 0.2 E.U./dL (<1 E.U./dL) 07/12/17 15:00 Ur Leukocyte Esterase Negative Enrique/uL (NEGATIVE) 07/12/17 15:00 - Hospital Course Hospital Course: 66 year old female with past medical history of COPD [place] [facility] [place]. Patient states that the rash started on Thursday and has been getting progressively worse. She states that she went to Urgent care on Thursday where they prescribed her Prednisone, Benadryl and Yamilex. Patient took these medications with minimal relief in symptoms. She saw Dr Gonsalez last week also, who prescribed her Singulair. Patient denies any recent travel, sick contacts, recent change in detergent, new medications or changes in medications. She states that this has happened to her before when she took amoxicillin. At this time she admits to having diffuse itchiness that has improved after being treated in the ED. Denies fevers, chills, headaches, dizziness, cp, palpitations, sob, abdominal pain, urinary symptoms, changes in bowel habits. In the Ed, patient recieved Duonebs, Benadryl, Solumedrol, Prednisone, Pepcid. ID was consulted. Patient was admitted for maculopapular rash and pruritis. She was ordered solumedrol, benadryl, pepcid and hydrocortisone cream. Over the next day, rash improved and pruritis lessened. Autoimmune/vasculitis labs were sent out. Patient was medically cleared for dischagre by Dr. Egan with prescriptions. Patient instructed to follow up with Dermatology and Rheumatology as outpatient. She is to follow up with PMD within 1-2 weeks as well. (This is a summary of the hospital course. Please refer to EMR for more details. ) Discharge Exam - Head Exam Head Exam: ATRAUMATIC, NORMAL INSPECTION, NORMOCEPHALIC - Eye Exam Eye Exam: EOMI, Normal appearance Pupil Exam: PERRL - ENT Exam ENT Exam: Mucous Membranes Moist - Respiratory Exam Respiratory Exam: Clear to PA & Lateral, NORMAL BREATHING PATTERN - Cardiovascular Exam Cardiovascular Exam: REGULAR RHYTHM - GI/Abdominal Exam GI & Abdominal Exam: Normal Bowel Sounds, Soft. absent: Tenderness - Extremities Exam Additional comments: pupura on upper extremities maculopapular rash on lower extremities - Neurological Exam Neurological exam: Alert, CN II-XII Intact, Normal Gait, Oriented x3 - Psychiatric Exam Psychiatric exam: Depressed, Normal Mood - Skin Skin Exam: Dry, Intact, Rash, Warm Additional comments: maculopapular rash on head, anterior/posterior trunk and lower extremities Discharge Plan - Discharge Medications Prescriptions: DiphenhydrAMINE [Benadryl] 25 mg PO Q6 PRN #30 cap PRN Reason: Itching / Pruritus Famotidine [Pepcid] 20 mg PO BID #20 tab Hydrocortisone 0.5% CREAM [Cortizone 0.5% CREAM] 30 applic TOP BID PRN #1 tube PRN Reason: Itching / Pruritus Methylprednisolone [Medrol Dose Pack (21 tabs)] See Taper PO DAILY #21 mg - Follow Up Plan Condition: STABLE Disposition: HOME/ ROUTINE Instructions: Chronic Obstructive Pulmonary Disease (COPD), Including Emphysema , Shortness of Breath (Dyspnea) (DC), Exacerbation of COPD, Risk Factors for COPD Additional Instructions: Take Medrol dose pack, Benadryl, Hydrocortisone cream, and Pepcid as prescribed Follow up with Dermatology and Rheumatology as outpatient Follow up with PMD within 1-2 weeks Please return to ED if symptoms perists or condition worsens Referrals: Fabian De La Rosa MD [Medical Doctor] - Kristy Jackman MD [Staff Provider] - Ricardo Putnam [Non-Staff] - Shawn Du MD [Non-Staff] - Justyn Bro DO [Doctor Osteopathy] - Kristy Pagan MD [Medical Doctor] - Rosio Trujillo MD [Medical Doctor] - Jarred Hawthorne MD [Staff Provider] - Alexa Naylor MD [Medical Doctor] - Homero Mohamud MD [Staff Provider] - Alda Mcelroy MD [Medical Doctor] - Fabien Gonsalez MD [Primary Care Provider] - Eugenio Jerry MD [Medical Doctor] - Kim Brian MD [Medical Doctor] - <Rachel Egan - Last Filed: 07/14/17 11:24> Provider - Provider Date of Admission: 07/12/17 17:54 Attending physician: Rachel Egan MD Primary care physician: Fabien Gonsalez MD Hospital Course - Lab Results Lab Results: Most Recent Lab Values WBC 11.5 10^3/ul (4.5-11.0) H 07/13/17 06:15 RBC 4.44 10^6/uL (3.5-6.1) 07/13/17 06:15 Hgb 13.8 g/dL (12.0-16.0) 07/13/17 06:15 Hct 42.0 % (36.0-48.0) 07/13/17 06:15 MCV 94.6 fl (80.0-105.0) 07/13/17 06:15 MCH 31.1 pg (25.0-35.0) 07/13/17 06:15 MCHC 32.9 g/dl (31.0-37.0) 07/13/17 06:15 RDW 13.3 % (11.5-14.5) 07/13/17 06:15 Plt Count 335 10^3/uL (120.0-450.0) 07/13/17 06:15 MPV 9.2 fl (7.0-11.0) 07/13/17 06:15 Gran % 87.7 % (50.0-68.0) H 07/13/17 06:15 Lymph % (Auto) 9.3 % (22.0-35.0) L 07/13/17 06:15 [place] % (Auto) 3.0 % (1.0-6.0) 07/13/17 06:15 Eos % (Auto) 0.0 % (1.5-5.0) L 07/13/17 06:15 Baso % (Auto) 0.0 % (0.0-3.0) 07/13/17 06:15 Gran # 10.09 (1.4-6.5) H 07/13/17 06:15 Lymph # (Auto) 1.1 (1.2-3.4) L 07/13/17 06:15 [place] # (Auto) 0.3 (0.1-0.6) 07/13/17 06:15 Eos # (Auto) 0.0 (0.0-0.7) 07/13/17 06:15 Baso # (Auto) 0.00 K/mm3 (0.0-2.0) 07/13/17 06:15 PT 10.5 SECONDS (9.4-12.5) 07/12/17 19:15 INR 0.92 (0.93-1.08) L 07/12/17 19:15 APTT 21.8 Seconds (25.1-36.5) L 07/12/17 19:15 Sodium 143 mmol/L (132-148) 07/13/17 06:15 Potassium 4.1 mmol/L (3.6-5.0) 07/13/17 06:15 Chloride 101 mmol/L (98-107) 07/13/17 06:15 Carbon Dioxide 26 mmol/L (21-33) 07/13/17 06:15 Anion Gap 20 (10-20) 07/13/17 06:15 BUN 19 mg/dL (7-21) 07/13/17 06:15 Creatinine 0.9 mg/dl (0.7-1.2) 07/13/17 06:15 Est GFR ( Amer) > 60 07/13/17 06:15 Est GFR (Non-Af Amer) > 60 07/13/17 06:15 Random Glucose 202 mg/dL (70-110) H 07/13/17 06:15 Calcium 9.5 mg/dL (8.4-10.5) 07/13/17 06:15 Phosphorus 4.2 mg/dL (2.5-4.5) 07/13/17 06:15 Magnesium 2.3 mg/dL (1.7-2.2) H 07/13/17 06:15 Total Bilirubin 0.2 mg/dL (0.2-1.3) 07/13/17 06:15 AST 26 U/L (14-36) 07/13/17 06:15 ALT 27 U/L (7-56) 07/13/17 06:15 Alkaline Phosphatase 58 U/L (38-126) 07/13/17 06:15 Lactate Dehydrogenase 666 U/L (333-699) 07/12/17 19:15 Total Creatine Kinase 61 U/L (35-230) 07/12/17 19:15 Troponin I < 0.01 ng/mL 07/12/17 19:15 NT-Pro-B Natriuret Pep 448 pg/mL (0-450) 07/12/17 19:15 Total Protein 6.8 g/dL (5.8-8.3) 07/13/17 06:15 Albumin 4.3 g/dL (3.0-4.8) 07/13/17 06:15 Globulin 2.5 gm/dL 07/13/17 06:15 Albumin/Globulin Ratio 1.8 (1.1-1.8) 07/13/17 06:15 Urine Color yellow (YELLOW) 07/12/17 15:00 Urine Appearance Clear (CLEAR) 07/12/17 15:00 Urine pH 7.5 (4.7-8.0) 07/12/17 15:00 Ur Specific [place] 1.015 (1.005-1.035) 07/12/17 15:00 Urine Protein Negative mg/dL (<30 mg/dL) 07/12/17 15:00 Urine Glucose (UA) Negative mg/dL (NEGATIVE) 07/12/17 15:00 Urine Ketones Negative mg/dL (NEGATIVE) 07/12/17 15:00 Urine Blood Negative (NEGATIVE) 07/12/17 15:00 Urine Nitrate Negative (NEGATIVE) 07/12/17 15:00 Urine Bilirubin Negative (NEGATIVE) 07/12/17 15:00 Urine Urobilinogen 0.2 E.U./dL (<1 E.U./dL) 07/12/17 15:00 Ur Leukocyte Esterase Negative Enrique/uL (NEGATIVE) 07/12/17 15:00 Rheumatoid Factor <14 IU/mL (<14) 07/13/17 11:45 Attending/Attestation - Attestation I have personally seen and examined this patient.: Yes I have fully participated in the care of the patient.: Yes I have reviewed all pertinent clinical information, including history, physical exam and plan: Yes Notes (Text): I have seen and examined the patient at bedside. Agree with the above note. ID consult appreciated. Rash has resolved this morning. There are some bruising on the arms. Advised patient to continue benadryl, medrol dose pack, hydrocortisone cream prn and avoid scratching. Follow up with head of english as an outpatient. Also advised patient to follow up with Dr Calix.
--- NOTE | 2017-07-13 14:07 | CARD ---
APPROVED REPORT EKG Measurement Heart [id number] <Conclusion> Normal sinus rhythm Biatrial enlargement Incomplete right bundle branch block Abnormal ECG
--- NOTE | 2017-07-13 17:57 | CP.PCM.CON ---
History of Present Illness - History of Present Illness History of Present Illness: Infectious Disease Consultation: July 13, 2017 66 year old female with past medical history of COPD presents to [facility] [place] for diffuse pruritic rash. Patient states that the rash started on Thursday and has been getting progressively worse. She states that she went to Urgent care on Thursday where they prescribed her Prednisone, Benadryl and Yamilex. Patient took these medications with minimal relief in symptoms. She saw Dr Gonsalez last week also, who prescribed her Singulair. Patient denies any recent travel, sick contacts, recent change in detergent, new medications or changes in medications. She states that this has happened to her before when she took amoxicillin. At this time she admits to having diffuse itchiness that has improved after being treated in the ED. Denies fevers, chills, headaches, dizziness, cp, palpitations, sob, abdominal pain, urinary symptoms, changes in bowel habits. The patient received Duoneb, Benadryl, Solumedrol, Prednisone, and Pepcid. The patient's rash and pruritis improved while in hospital. PMHx: COPD, gastritis, dry eyes PSHx: Hysterectomy, Breast Implants, Tonsillectomy, Eye surgery. Allergies: Amoxicillin, Eggs Social Hx: Ex-smoker No EtOH or illicit drug use Medications: Omeprazole, Cyclosporine, Albuterol, Methylprednisolone, Famotidine, Diphenhydramine. Family Hx: Denies ROS: No fevers, chills, nausea, vomiting, diarrhea, headaches, dizziness, chest pain , abdominal pain, melena, hematuria, hematemesis, hematochezia, depression, anxiety. Past Patient History - Infectious Disease Hx of Infectious Diseases: None - Tetanus Immunizations Tetanus Immunization: Unknown - Past Social History Smoking Status: Light Smoker < 10 Cigarettes Daily - CARDIAC Hx Cardiac Disorders: No - PULMONARY Hx Respiratory Disorders: Yes Hx Asthma: Yes Hx Chronic Obstructive Pulmonary Disease (COPD): Yes - NEUROLOGICAL Hx Neurological Disorder: No - HEENT Hx HEENT Problems: Yes Hx Glaucoma: Yes Other/Comment: dry eyes - RENAL Hx Chronic Kidney Disease: No - ENDOCRINE/METABOLIC Hx Endocrine Disorders: No - HEMATOLOGICAL/ONCOLOGICAL Hx Blood Disorders: No - INTEGUMENTARY Hx Dermatological Problems: No - MUSCULOSKELETAL/RHEUMATOLOGICAL Hx Musculoskeletal Disorders: No Hx Falls: No - GASTROINTESTINAL Hx Gastrointestinal Disorders: No - GENITOURINARY/GYNECOLOGICAL Hx Genitourinary Disorders: No - PSYCHIATRIC Hx Psychophysiologic Disorder: No Hx Substance Use: No - SURGICAL HISTORY Other/Comment: S/P hysterectomy, breast implants, tonsillectomy, eye sx - ANESTHESIA Hx Anesthesia: Yes Hx Anesthesia Reactions: No Meds Home Medications: Home Medication List Medication Instructions Recorded Confirmed Type DiphenhydrAMINE [Benadryl] 25 mg PO Q6 PRN #30 cap 07/13/17 Rx Famotidine [Pepcid] 20 mg PO BID #20 tab 07/13/17 Rx Hydrocortisone 0.5% CREAM 30 applic TOP BID PRN #1 tube 07/13/17 Rx [Cortizone 0.5% CREAM] Methylprednisolone [Medrol Dose See Taper PO DAILY #21 mg 07/13/17 Rx Pack (21 tabs)] Allergies/Adverse Reactions: Allergies Allergy/AdvReac Type Severity Reaction Status Date / Time amoxicillin Allergy ANAPHYLAXIS Verified 07/12/17 13:08 EGG Allergy ANAPHYLAXIS Verified 06/11/17 11:48 Physical Exam - Constitutional Appears: Non-toxic, No Acute Distress - Head Exam Head Exam: ATRAUMATIC, NORMOCEPHALIC - Eye Exam Eye Exam: EOMI, PERRL Pupil Exam: NORMAL ACCOMODATION, PERRL - ENT Exam ENT Exam: Mucous Membranes Moist, Normal External Ear Exam, TM's Normal Bilaterally - Neck Exam Neck exam: Positive for: Full Rom, Normal Inspection - Respiratory Exam Respiratory Exam: Clear to Auscultation Bilateral, NORMAL BREATHING PATTERN. absent: Rales, Rhonchi, Wheezes - Cardiovascular Exam Cardiovascular Exam: REGULAR RHYTHM, RRR, +S1, +S2 - GI/Abdominal Exam GI & Abdominal Exam: Normal Bowel Sounds, Soft. absent: Distended, Tenderness - Extremities Exam Extremities exam: Positive for: full ROM Additional comments: pupura on upper extremities maculopapular rash on lower extremities - Neurological Exam Neurological exam: Alert, CN II-XII Intact, Oriented x3 - Psychiatric Exam Psychiatric exam: Normal Affect, Normal Mood - Skin Additional comments: pupura on upper extremities maculopapular rash on lower extremities Results - Vital Signs Recent Vital Signs: Last Vital Signs Temp 98.1 F 07/13/17 07:00 Pulse 91 H 07/13/17 07:00 Resp 20 07/13/17 07:00 BP 122/75 07/13/17 07:00 Pulse Ox 96 05/07/18 07:00 - Labs Result Diagrams: 07/13/17 06:15 07/13/17 06:15 Labs: Laboratory Results - last 24 hr 07/12/17 07/12/17 07/13/17 19:15 19:15 06:15 WBC 11.5 H RBC 4.44 Hgb 13.8 Hct 42.0 MCV 94.6 MCH 31.1 MCHC 32.9 RDW 13.3 Plt Count 335 MPV 9.2 Gran % 87.7 H Lymph % (Auto) 9.3 L [place] % (Auto) 3.0 Eos % (Auto) 0.0 L Baso % (Auto) 0.0 Gran # 10.09 H Lymph # (Auto) 1.1 L [place] # (Auto) 0.3 Eos # (Auto) 0.0 Baso # (Auto) 0.00 PT 10.5 INR 0.92 L APTT 21.8 L Sodium Potassium Chloride Carbon Dioxide Anion Gap BUN Creatinine Est GFR ( Amer) Est GFR (Non-Af Amer) Random Glucose Calcium Phosphorus Magnesium Total Bilirubin AST ALT Alkaline Phosphatase Lactate Dehydrogenase 666 Total Creatine Kinase 61 Troponin I < 0.01 NT-Pro-B Natriuret Pep 448 Total Protein Albumin Globulin Albumin/Globulin Ratio 07/13/17 06:15 WBC RBC Hgb Hct MCV MCH MCHC RDW Plt Count MPV Gran % Lymph % (Auto) [place] % (Auto) Eos % (Auto) Baso % (Auto) Gran # Lymph # (Auto) [place] # (Auto) Eos # (Auto) Baso # (Auto) PT INR APTT Sodium 143 Potassium 4.1 Chloride 101 Carbon Dioxide 26 Anion Gap 20 BUN 19 Creatinine 0.9 Est GFR ( Amer) > 60 Est GFR (Non-Af Amer) > 60 Random Glucose 202 H Calcium 9.5 Phosphorus 4.2 Magnesium 2.3 H Total Bilirubin 0.2 AST 26 ALT 27 Alkaline Phosphatase 58 Lactate Dehydrogenase Total Creatine Kinase Troponin I NT-Pro-B Natriuret Pep Total Protein 6.8 Albumin 4.3 Globulin 2.5 Albumin/Globulin Ratio 1.8 Assessment & Plan - Assessment and Plan (Free Text) Assessment: 66 yo female with diffuse pruritic erythematous rash. The patient had mild leukocytosis. Started on Solumedrol, Benadryl, and Pepcid for treatment. Patient with improvement of the rash overall while in hospital. Supportive care. No need to start antibiotics at this point. There is the potential for a superficial cellulitis to occur. Wound monitor closely. Thank you for allowing me to participate in the care of the patient, we will follow with you.
[2017-07-16 01:02] LABS: ANCA SCREEN NEGATIVE (NEGATIVE)
== END 2017-07-13 14:51 | disposition home or self-care (01) ==
LOC: ED 12:51 → ERH 17:54 → 5RNO 20:53
PROVIDERS: ADMIT Hospitalist; ATTEND Hospitalist
DX: R21 Rash and other nonspecific skin eruption (principal); T78.40XA Allergy, unspecified, initial encounter; J44.1 Chronic obstructive pulmonary disease with (acute) exacerbation; K29.70 Gastritis, unspecified, without bleeding; H04.123 Dry eye syndrome of bilateral lacrimal glands; H40.9 Unspecified glaucoma; D72.829 Elevated white blood cell count, unspecified; Z88.0 Allergy status to penicillin; Z87.891 Personal history of nicotine dependence
CPT/HCPCS: 36415; 71045; 80053; 81003; 82550; 83516; 83615; 83735; 83880; 84100; 84484; 85025; 85610; 85730; 86021; 86039; 86225; 86431; 93005; 96365; 96375; 96376; 99285; G0378; J1200; J2920

== ENCOUNTER 2017-07-17 00:32 | Emergency (ER) | payer MEDICARE, OTHER ==
[2017-07-17 00:34] VITALS: BMI 19.7
[2017-07-17 01:05] VITALS: TEMP 98.9
[2017-07-17] MEDS ORDERED: TraMADol/Apap 37.5/325 mg Tab PO STA (01:19)
--- NOTE | 2017-07-17 01:19 | ED PDOC ---
Arrival/HPI - General Historian: Patient - History of Present Illness Time/Duration: Other (see hpi) Context: Home <Charisma Vincent - Last Filed: 07/17/17 01:51> <Jarred Trejo - Last Filed: 07/17/17 01:59> - General Chief Complaint: Lower Extremity Problem/Injury Time Seen by Provider: 07/17/17 01:11 - History of Present Illness Narrative History of Present Illness (Text): 07/17/17 01:15 This 67 yo female presents to this ED c/o right foot pain x 7 hours. Patient stated pain started when she stood up from her chair at home. Denies trauma. ( Charisma Vincent) Past Medical History - Provider Review Nursing Documentation Reviewed: Yes - Infectious Disease Hx of Infectious Diseases: None - Tetanus Immunization Tetanus Immunization: Unknown - Cardiac Hx Cardiac Disorders: No - Pulmonary Hx Respiratory Disorders: Yes Hx Asthma: Yes Hx Chronic Obstructive Pulmonary Disease (COPD): Yes - Neurological Hx Neurological Disorder: No - HEENT Hx HEENT Disorder: Yes Hx Glaucoma: Yes Other/Comment: dry eyes - Renal Hx Renal Disorder: No - Endocrine/Metabolic Hx Endocrine Disorders: No - Hematological/Oncological Hx Blood Disorders: No - Integumentary Hx Dermatological Disorder: No - Musculoskeletal/Rheumatological Hx Musculoskeletal Disorders: No Hx Falls: No - Gastrointestinal Hx Gastrointestinal Disorders: No - Genitourinary/Gynecological Hx Genitourinary Disorders: No - Psychiatric Hx Psychophysiologic Disorder: No Hx Substance Use: No - Surgical History Hx Hysterectomy: Yes Other/Comment: S/P hysterectomy, breast implants, tonsillectomy, eye sx - Anesthesia Hx Anesthesia: Yes Hx Anesthesia Reactions: No - Suicidal Assessment Feels Threatened In Home Enviroment: No <Charisma Vincent - Last Filed: 07/17/17 01:51> Family/Social History - Physician Review Nursing Documentation Reviewed: Yes Family/Social History: Other (noncontributory) Smoking Status: Light Smoker < 10 Cigarettes Daily Hx Alcohol Use: No Hx Substance Use: No Hx Substance Use Treatment: No <Charisma Vincent - Last Filed: 07/17/17 01:51> Allergies/Home Meds <Charisma Vincent - Last Filed: 07/17/17 01:51> <Jarred Trejo - Last Filed: 07/17/17 01:59> Allergies/Adverse Reactions: Allergies amoxicillin Allergy (Verified 07/12/17 13:08) ANAPHYLAXIS EGG Allergy (Verified 07/17/17 01:05) ANAPHYLAXIS Home Medications: Home Meds Medication Instructions Recorded Confirmed Omeprazole 20 mg PO DAILY 07/12/17 07/12/17 cycloSPORINE [Restasis] 3 ea OU Q12 07/12/17 07/12/17 Review of Systems - Review of Systems Constitutional: Normal. absent: Fatigue, Weight Change, Fevers, Night Sweats Eyes: Normal ENT: Normal Respiratory: Normal Cardiovascular: Normal Gastrointestinal: Normal Genitourinary Female: Normal Musculoskeletal: Other ((+) right foot plantar aspect pain) Skin: Normal Neurological: Normal Endocrine: Normal Hemo/Lymphatic: Normal Psychiatric: Normal <Charisma Vincent - Last Filed: 07/17/17 01:51> Physical Exam Temperature: Afebrile Blood Pressure: Normal Pulse: Regular Respiratory Rate: Normal Appearance: Positive for: Well-Appearing, Non-Toxic, Comfortable Pain Distress: None Mental Status: Positive for: Alert and Oriented X 3 - Systems Exam Head: Present: Atraumatic, Normocephalic Pupils: Present: PERRL Extroacular Muscles: Present: EOMI Conjunctiva: Present: Normal Mouth: Present: Moist Mucous Membranes Neck: Present: Normal Range of Motion Upper Extremity: Present: Normal Inspection, Normal ROM Lower Extremity: Present: Normal Inspection, NORMAL PULSES, Normal ROM, Tenderness ((+) Mild tenderness over plantar aspect of rght foot.), Neurovascularly Intact, Capillary Refill < 2 s. No: Edema, CALF TENDERNESS, Cyanosis, Corinne's Sign, Swelling, Erythema, Deformity, Temperature Abnormalties <Charisma Vincent - Last Filed: 07/17/17 01:51> Vital Signs Temp Pulse Resp BP Pulse Ox 07/17/17 01:04 98.9 F 112 H 220 H 116/82 95 Medical Decision Making Re-evaluation Time: 01:52 Reassessment Condition: Re-examined, Improved <Charisma Vincent - Last Filed: 07/17/17 01:51> <Jarred Trejo - Last Filed: 07/17/17 01:59> ED Course and Treatment: 07/17/17 01:51 Re-evaluation. Patient feels better. Discussed results and plan with patient who expresses understanding. All questions answered and there is agreement with the plan to discharge home with instructions. Patient stable for discharge. Return if symptoms persist or worsen. patient was recommended [facility] and f/u supervisor wire rope fabrication. (Charisma Vincent) - RAD Interpretation Narrative RAD Interpretations (Text): 07/17/17 01:52 Foot x-rays: No fx. (+) heel spur (Charisma Vincent) Radiology Orders: 07/17/17 01:12 FOOT RIGHT 3 VIEWS ROUTINE [RAD] Stat - Medication Orders Current Medication Orders: Discontinued Medications Ketorolac Tromethamine (Toradol) 15 mg IM STAT STA Stop: 07/17/17 01:13 Last Admin: 07/17/17 01:44 Dose: 15 mg MAR Pain Assessment Document 07/17/17 01:44 OCS (Rec: 07/17/17 01:44 OCS [id number]) Pain Reassessment Is this a pain reassessment? Yes IM Administration Charges Document 07/17/17 01:44 OCS (Rec: 07/17/17 01:44 OCS [id number]) Charges for Administration # of IM Administrations 1 Tramadol/Acetaminophen (Ultracet 37.5/325 Mg) 1 tab PO STAT STA Stop: 07/17/17 01:20 Last Admin: 07/17/17 01:44 Dose: 1 tab MAR Pain Assessment Document 07/17/17 01:44 OCS (Rec: 07/17/17 01:44 OCS [id number]) Pain Reassessment Is this a pain reassessment? Yes - PA / CHASSIS DRIVER / Resident Statement / has reviewed & agrees with the documentation as recorded. / has examined the patient and agrees with the treatment plan. <Jarred Treoj - Last Filed: 07/17/17 01:59> Disposition/Present on Arrival - Present on Arrival Any Indicators Present on Arrival: No History of DVT/PE: No History of Uncontrolled Diabetes: No Urinary Catheter: No History of Decub. Ulcer: No History Surgical Site Infection Following: None - Disposition Have Diagnosis and Disposition been Completed?: Yes Disposition Time: 01:52 Patient Plan: Discharge <Charisma Vincent - Last Filed: 07/17/17 01:51> <Jarred Trejo - Last Filed: 07/17/17 01:59> - Disposition Diagnosis: Plantar fasciitis of right foot Disposition: HOME/ ROUTINE Condition: GOOD Discharge Instructions (ExitCare): Heel Pain (Caused by Plantar Fasciitis) (DC) Additional Instructions: Call private supervisor wire rope fabrication office for follow up visit and revaluation in 1-2 days. Keep foot elevated, ice, rest, irma bandage , cane for at least 5 days. Try to stretch foot before you get up from bed. Return to emergency if pain worsen. Tramadol could make you feel drowsy. Do not drive or operate machinery for at least 12 hours if you take Tramadol Prescriptions: Famotidine [Pepcid] 40 mg PO DAILY #10 tablet Ibuprofen [Motrin] 400 mg PO Q8H PRN #20 tab PRN Reason: Pain, Severe (8-10) traMADol [Ultram] 50 mg PO TID PRN #10 tab PRN Reason: Pain, Severe (8-10) Referrals: Kevin Martin DPM [Staff Provider] - Follow up with primary Forms: [employer] (Vietnamese)
[2017-07-17 02:35] VITALS: RESP 20
[2017-07-17 04:09] VITALS: BP 120/79; PULSE 95; O2SAT 100
--- NOTE | 2017-07-17 10:23 | RAD ---
PROCEDURE: Right Foot Radiographs. HISTORY: pain, non-trauma COMPARISON: None. FINDINGS: BONES: Normal. No fracture. JOINTS: Normal. SOFT TISSUES: Normal. OTHER FINDINGS: None. IMPRESSION: Normal right foot radiographs.
== END 2017-07-17 02:21 | disposition home or self-care (01) ==
LOC: ED 00:32
DX: M72.2 Plantar fascial fibromatosis (principal); F17.210 Nicotine dependence, cigarettes, uncomplicated
CPT/HCPCS: 73630; 96372; 99282; J1885

== ENCOUNTER 2017-12-02 12:18 | Inpatient (IN) | payer MEDICARE, OTHER ==
--- NOTE | 2017-12-02 12:57 | ED PDOC ---
Arrival/HPI - General Chief Complaint: Shortness Of Breath Time Seen by Provider: 12/02/17 12:54 Historian: Patient, Family - History of Present Illness Narrative History of Present Illness (Text): 12/02/17 12:57 Patient is a 67 year old female whose past medical history includes COPD, who presents to the emergency department with her son complaining of shortness of breath. She reports that her dyspnea started 3 days ago. She also states experiencing a productive cough with clear sputum. Patient states that her current symptoms are different than past COPD exacerbation. She denies any recent sick contact or history of congestive heart failure. Her son has noticed that the patient has been frequently sleeping for the past 2 days, which he states is uncharacteristic. Patient admits to having a sore throat. Patient denies fevers, chills, chest pain, abdominal pain, nausea, vomiting, diarrhea, neck/back pain, urinary/bowel changes, headache, dizziness, or any other complaint. Time/Duration: < week Symptom Onset: Sudden Symptom Course: Unchanged Context: Home Past Medical History - Provider Review Nursing Documentation Reviewed: Yes - Infectious Disease Hx of Infectious Diseases: None - Tetanus Immunization Tetanus Immunization: Unknown - Cardiac Hx Cardiac Disorders: No - Pulmonary Hx Respiratory Disorders: Yes Hx Asthma: Yes Hx Chronic Obstructive Pulmonary Disease (COPD): Yes - Neurological Hx Neurological Disorder: No - HEENT Hx HEENT Disorder: Yes Hx Glaucoma: Yes Other/Comment: dry eyes - Renal Hx Renal Disorder: No - Endocrine/Metabolic Hx Endocrine Disorders: No - Hematological/Oncological Hx Blood Disorders: No - Integumentary Hx Dermatological Disorder: No - Musculoskeletal/Rheumatological Hx Musculoskeletal Disorders: No Hx Falls: No - Gastrointestinal Hx Gastrointestinal Disorders: No - Genitourinary/Gynecological Hx Genitourinary Disorders: No - Psychiatric Hx Psychophysiologic Disorder: No Hx Substance Use: No - Surgical History Hx Hysterectomy: Yes Other/Comment: S/P hysterectomy, breast implants, tonsillectomy, eye sx - Anesthesia Hx Anesthesia: Yes Hx Anesthesia Reactions: No - Suicidal Assessment Feels Threatened In Home Enviroment: No Family/Social History - Physician Review Nursing Documentation Reviewed: Yes Family/Social History: No Known Family HX Smoking Status: Light Smoker < 10 Cigarettes Daily Hx Alcohol Use: No Hx Substance Use: No Hx Substance Use Treatment: No Allergies/Home Meds Allergies/Adverse Reactions: Allergies amoxicillin Allergy (Verified 07/12/17 13:08) ANAPHYLAXIS EGG Allergy (Verified 07/17/17 01:05) ANAPHYLAXIS dairy Allergy (Uncoded 12/02/17 12:32) ANAPHYLAXIS Home Medications: Home Meds Medication Instructions Recorded Confirmed Omeprazole 20 mg PO DAILY 07/12/17 07/12/17 cycloSPORINE [Restasis] 3 ea OU Q12 07/12/17 07/12/17 Review of Systems - Physician Review All systems were reviewed & negative as marked: Yes - Review of Systems Constitutional: absent: Fevers, Other (chills) Respiratory: SOB, Cough, Sputum Cardiovascular: absent: Chest Pain Gastrointestinal: absent: Abdominal Pain, Constipation, Diarrhea, Nausea, Vomiting Genitourinary Female: absent: Dysuria, Urine Output Changes Musculoskeletal: absent: Back Pain, Neck Pain Skin: Normal Neurological: Normal. absent: Headache, Dizziness Physical Exam Vital Signs Reviewed: Yes Vital Signs Temp Pulse Resp BP Pulse Ox 12/02/17 12:30 94 L 12/02/17 12:28 98.4 F 125 H 21 163/79 H 94 L Temperature: Afebrile Blood Pressure: Hypertensive Pulse: Tachycardic Respiratory Rate: Normal Appearance: Positive for: Well-Appearing Mental Status: Positive for: Alert and Oriented X 3 - Systems Exam Head: Present: Atraumatic, Normocephalic Pupils: Present: PERRL Extroacular Muscles: Present: EOMI Conjunctiva: Present: Normal Mouth: Present: Moist Mucous Membranes Pharnyx: No: ERYTHEMA, EXUDATE Neck: Present: Normal Range of Motion Respiratory/Chest: Present: Wheezes (bilateral expiratory wheezes), Tachypneic, Other (poor bilateral air exchange). No: Good Air Exchange, Accessory Muscle Use Cardiovascular: Present: Normal S1, S2, Tachycardic. No: Murmurs Abdomen: No: Tenderness, Distention, Peritoneal Signs Back: Present: Normal Inspection Upper Extremity: Present: Normal Inspection. No: Cyanosis, Edema Lower Extremity: Present: Normal Inspection. No: Edema Neurological: Present: GCS=15, CN II-XII Intact, Speech Normal Skin: Present: Warm, Dry, Normal Color. No: Rashes Psychiatric: Present: Alert, Oriented x 3, Normal Insight, Normal Concentration Medical Decision Making ED Course and Treatment: 12/02/17 12:57 Impression: Patient is a 67 year old female complaining of shortness of breath for the past 3 days with productive cough. Differential Diagnosis included but are not limited to: Plan: -- ABG -- Chest X-ray -- EKG -- Cardiac enzymes -- D-dimer -- Blood work -- Labs -- Blood culture -- Xopenex -- Levaquin -- Solu-Medrol -- Reassess and disposition Prior Visits: Notes and results from previous visits were reviewed. Progress Notes: 12/02/17 13:36 D-dimer reviewed and will order CTA to rule out pulmonary embolism. 12/02/17 14:30 Patient revaluated at bedside. Patient reports feeling much better, and is less tachypnic. On lung exam there is good air exchange bilaterally, and mild expir atory wheeze. 12/02/17 15:01 admit accepted by hospitalist, patient was seen and tx for progessively worsening dyspnea with productive cough and wheezing. patient improved during ED course. CTA was done to eval for possible PE. - Lab Interpretations I have reviewed the lab results: Yes - RAD Interpretation Narrative RAD Interpretations (Text): 12/02/17 13:49 Chest X-ray: Dictator : Bebo Parham MD FINDINGS: LUNGS: No active pulmonary disease. PLEURA: No significant pleural effusion identified, no pneumothorax apparent. CARDIOVASCULAR: No radiographic findings to suggest acute or significant cardiovascular disease. OSSEOUS STRUCTURES: No significant abnormalities. VISUALIZED UPPER ABDOMEN: Normal. OTHER FINDINGS: None. IMPRESSION: No active disease. No significant interval change compared to the prior examination(s). 12/02/17 15:[address] with Contrast (Pulmonary angiogram): Dictator : Stephane Whaley MD FINDINGS: PULMONARY ARTERIES: Unremarkable. No pulmonary embolism. AORTA: No acute findings. No thoracic aortic aneurysm. LUNGS: No nodule, mass or pulmonary consolidation. Limited emphysematous changes are seen at the bilateral apices. 1.4 cm varix is stable at the left upper lobe and image 51 series 5 with a probable similar minimal focus at the left lower lobe in image 99. Central airways appear clear. PLEURAL SPACES: Unremarkable. No effusion or pneumothorax. HEART: Unremarkable. No cardiomegaly. No significant pericardial effusion. LYMPH NODES: No lymphadenopathy. BONES, CHEST WALL: Bilateral peripherally calcified breast implants reiterated. No fracture or destructive lesion OTHER FINDINGS: Unremarkable. IMPRESSION: No CT evidence of pulmonary embolus or other acute pulmonary or vascular process. Small varix is not significantly changed in appearance at the left upper lobe as well as a similar tiny focus at the left lower lobe as discussed above. No pattern to suggest malignancy and there is no significant lymphadenopathy appreciated trace emphysematous changes are identified at the bilateral apices. Dressmaker Or Tailor: Radiologist - EKG Interpretation EKG Interpretation (Text): 12/02/17 13:31 EKG shows sinus tachycardia at 110bpm with RBBB. No ectopy. Interpreted by me. Interpreted by ED Physician: Yes Type: 12 lead EKG - Scribe Statement The provider has reviewed the documentation as recorded by the Scribe Ayush Meinikky Provider Scribe Attestation: All medical record entries made by the Scribe were at my direction and personally dictated by me. I have reviewed the chart and agree that the record accurately reflects my personal performance of the history, physical exam, medical decision making, and the department course for this patient. I have also personally directed, reviewed, and agree with the discharge instructions and disposition. Disposition/Present on Arrival - Present on Arrival Any Indicators Present on Arrival: No History of DVT/PE: No History of Uncontrolled Diabetes: No Urinary Catheter: No History of Decub. Ulcer: No History Surgical Site Infection Following: None - Disposition Have Diagnosis and Disposition been Completed?: Yes Diagnosis: COPD exacerbation Disposition: HOSPITALIZED Disposition Time: 14:30 Patient Plan: Admission Patient Problems: Current Active Problems Problem Status Onset COPD exacerbation Acute Condition: STABLE Referrals: Fabien Gonsalez MD [Primary Care Provider] - Follow up with primary Forms: [employer] (Malaysian)
[2017-12-02] MEDS ORDERED: MethylPREDNISolone 40 mg Vial IVP STA (12:58)
[2017-12-02] MEDS ORDERED: levoFLOXacin 750 mg in D5W 150 ML BAG IVPB STA (12:58)
[2017-12-02] MEDS ORDERED: Levalbuterol 0.63 MG/3 ML Inhal Soln UD IH STA ×2 (12:59→14:51)
[2017-12-02 13:22] LABS: BASO # 0.07 K/mm3 (0.0-2.0); BASO % 0.7 % (0.0-3.0); EOS # 0.7 (0.0-0.7); EOS % 6.6 % (1.5-5.0); GRAN # 6.58 (1.4-6.5); GRAN % 61.8 % (50.0-68.0); HEMOGLOBIN 13.9 g/dL (12.0-16.0); LYMPH # 2.7 (1.2-3.4); LYMPH % 25.2 % (22.0-35.0); MEAN CELL VOLUME 92.6 fl (80.0-105.0); MEAN CORPUSCULAR HEMOGLOBIN 30.2 pg (25.0-35.0); MEAN CORPUSCULAR HGB CONC 32.6 g/dl (31.0-37.0); MEAN PLATELET VOLUME 9.7 fl (7.0-11.0); MONO # 0.6 (0.1-0.6); MONO % 5.7 % (1.0-6.0); RBC 4.61 10^6/uL (3.5-6.1); RED CELL DISTRIBUTION WIDTH 14.5 % (11.5-14.5); WHITE BLOOD COUNT 10.6 10^3/ul (4.5-11.0)
[2017-12-02 13:23] LABS: ARTERIAL BLOOD GAS HCO3 27.9 mmol/L (21-28); ARTERIAL BLOOD GAS O2 CAPACITY 18.9 mL/dl (16-24); ARTERIAL BLOOD GAS O2 CONTENT 18.3 ML/dl (15-23); ARTERIAL BLOOD GAS O2 SAT 96.9 % (95-98); ARTERIAL BLOOD GAS PCO2 44 mm/Hg (35-45); ARTERIAL BLOOD GAS PH 7.41 (7.35-7.45); ARTERIAL BLOOD GAS TCO2 29.3 mmol.L (22-28)
--- NOTE | 2017-12-02 13:30 | RAD ---
Date of service: 12/02/2017 HISTORY: cough, pneumonia, hx copd COMPARISON: 07/12/2017. FINDINGS: LUNGS: No active pulmonary disease. PLEURA: No significant pleural effusion identified, no pneumothorax apparent. CARDIOVASCULAR: No radiographic findings to suggest acute or significant cardiovascular disease. OSSEOUS STRUCTURES: No significant abnormalities. VISUALIZED UPPER ABDOMEN: Normal. OTHER FINDINGS: None. IMPRESSION: No active disease. No significant interval change compared to the prior examination(s).
[2017-12-02 13:31] LABS: INR 0.91; PROTHROMBIN TIME 10.5 SECONDS (9.4-12.5)
[2017-12-02 13:38] LABS: ALB/GLOB RATIO 1.8 (1.1-1.8); ALBUMIN 3.9 g/dL (3.0-4.8); ALT/SGPT 22 U/L (7-56); AST/SGOT 20 U/L (14-36); BLOOD UREA NITROGEN 10 mg/dL (7-21); CALCIUM 9.9 mg/dL (8.4-10.5); GFR NON-AFRICAN AMERICAN > 60
[2017-12-02 13:50] LABS: B-TYPE NATRIURETIC PEPTIDE 64.9 pg/mL (0-450); TROPONIN I 0.01 ng/mL
[2017-12-02] MEDS ORDERED: Iohexol 350 MG/100 ML VIAL ONE (13:50)
--- NOTE | 2017-12-02 15:24 | CT ---
Date of service: 12/02/2017 PROCEDURE: CT Chest with contrast (Pulmonary Angiogram) HISTORY: pulmonary embolism COMPARISON: Chest CT with contrast 01/12/2016. TECHNIQUE: Axial computed tomography images were obtained of the chest in the pulmonary arterial phase of enhancement. Coronal and sagittal reformatted images were created and reviewed. Intravenous contrast dose: Omnipaque 350, 100 cc Radiation dose: Total exam DLP = 234.19 mGy-cm. This CT exam was performed using one or more of the following dose reduction techniques: Automated exposure control, adjustment of the mA and/or kV according to patient size, and/or use of iterative reconstruction technique. FINDINGS: PULMONARY ARTERIES: Unremarkable. No pulmonary embolism. AORTA: No acute findings. No thoracic aortic aneurysm. LUNGS: No nodule, mass or pulmonary consolidation. Limited emphysematous changes are seen at the bilateral apices. 1.4 cm varix is stable at the left upper lobe and image 51 series 5 with a probable similar minimal focus at the left lower lobe in image 99. Central airways appear clear. PLEURAL SPACES: Unremarkable. No effusion or pneumothorax. HEART: Unremarkable. No cardiomegaly. No significant pericardial effusion. LYMPH NODES: No lymphadenopathy. BONES, CHEST WALL: Bilateral peripherally calcified breast implants reiterated. No fracture or destructive lesion OTHER FINDINGS: Unremarkable. IMPRESSION: No CT evidence of pulmonary embolus or other acute pulmonary or vascular process. Small varix is not significantly changed in appearance at the left upper lobe as well as a similar tiny focus at the left lower lobe as discussed above. No pattern to suggest malignancy and there is no significant lymphadenopathy appreciated trace emphysematous changes are identified at the bilateral apices.
--- NOTE | 2017-12-02 15:28 | CP.PCM.HP ---
<Brigida Lobo - Last Filed: 12/02/17 17:33> History of Present Illness - History of Present Illness History of Present Illness: PGY-1 Brigida Lobo D.O. H&P for Dr. Lorenzana's service: Rachael Batres is a 67 yo female with a history of COPD and glaucoma who presented to the ED with her son due to shortness of breath and cough for the past 3 days. Cough is productive of clear sputum. The last time she was hospitalized was July 2017 for severe SOB (but was not intubated) and rash co vering her whole body. She takes albuterol nebulizer 2-3 times a day and was started on 3 L oxygen at home 4 months ago. She also takes Ventolin for emergencies, which did not relieve symptoms this time. She tried to quit smoking 1 year ago with the nicotine patch with no success and now smokes 2-4 cigarettes daily and has long standing history of tobacco use. She also complains of mild sore throat and neck pain due to coughing. She denies fever, chills, pain with deep breathing, headache, swelling in her legs, prolonged period of sitting, pain or swelling in her LEs. She denies sick contacts. No history of malignancy or cancer in family. She sees her Pulm, Dr. Gonsalez, and had her last visit 1 month ago and no changes were made to current treatment plan. PMH: COPD Glaucoma H/o gastritis Hysterectomy for heavy bleeding Breast implants Meds: Albuterol nebulizer 2-3x/day Ventolin as needed Symbicort- patient does not use Restasis eye drops All: amoxicillin, egg FH: mother (100)- living father (39)- of [place] SH: Prolonged smoking history (2-4 cigarettes/day for many decades) Alcohol- social use Denies illicit drug use Lives with sonJustyn PMD/pulm: Dr. Gonsalez Medical proxy: son Justyn, daughter Claudia ([phone]) Present on Admission - Present on Admission Any Indicators Present on Admission: No History of DVT/PE: No History of Uncontrolled Diabetes: No Urinary Catheter: No Decubitus Ulcer Present: No History Surgical Site Infection Following: None Review of Systems - Constitutional Constitutional: Frequent Falls, Weakness. absent: Anorexia, Fatigue, Fever, Headache - EENT Eyes: absent: Blurred Vision, Change in Vision Ears: absent: Decreased Hearing, Tinnitus Nose/Mouth/Throat: Sore Throat, Neck Pain. absent: Nasal Congestion, Throat Swelling - Cardiovascular Cardiovascular: Dyspnea, Lightheadedness. absent: Chest Pain, Leg Edema, Palpitations, Pedal Edema - Respiratory Respiratory: Cough, Dyspnea. absent: Wheezing, Pain on Inspiration - Gastrointestinal Gastrointestinal: absent: Abdominal Pain, Constipation, Diarrhea, Nausea, Vomiting - Genitourinary Genitourinary: absent: Dysuria, Hematuria - Reproductive: Female Reproductive:Female: S/P Hysterectomy - Menstruation Menstruation: S/P Hysterectomy - Musculoskeletal Musculoskeletal: absent: Abnormal Gait, Back Pain, Numbness, Stiffness, Tingling - Integumentary Integumentary: Unusual Bruising - Neurological Neurological: absent: Behavioral Changes, Numbness, Focal Weakness, Headaches, Paresthesias, Vertigo - Psychiatric Psychiatric: absent: Anxiety, Depression - Endocrine Endocrine: absent: Fatigue, Palpitations - Hematologic/Lymphatic Hematologic: Easy Bruising. absent: Lymphadenopathy Past Patient History - Infectious Disease Hx of Infectious Diseases: None - Tetanus Immunizations Tetanus Immunization: Unknown - Past Medical History & Family History Past Medical History?: Yes Past Family History: Reviewed and not pertinent - Past Social History Smoking Status: Light Smoker < 10 Cigarettes Daily Chewing Tobacco Use: No Cigar Use: No Alcohol: Social Drugs: Denies Home Situation {Lives}: With Family (son) - CARDIAC Hx Cardiac Disorders: No - PULMONARY Hx Respiratory Disorders: Yes Hx Asthma: Yes Hx Chronic Obstructive Pulmonary Disease (COPD): Yes - NEUROLOGICAL Hx Neurological Disorder: No - HEENT Hx HEENT Problems: Yes Hx Glaucoma: Yes Other/Comment: dry eyes - RENAL Hx Chronic Kidney Disease: No - ENDOCRINE/METABOLIC Hx Endocrine Disorders: No - HEMATOLOGICAL/ONCOLOGICAL Hx Blood Disorders: No - INTEGUMENTARY Hx Dermatological Problems: No - MUSCULOSKELETAL/RHEUMATOLOGICAL Hx Musculoskeletal Disorders: No Hx Falls: No - GASTROINTESTINAL Hx Gastrointestinal Disorders: No - GENITOURINARY/GYNECOLOGICAL Hx Genitourinary Disorders: No - PSYCHIATRIC Hx Psychophysiologic Disorder: No Hx Substance Use: No - SURGICAL HISTORY Hx Hysterectomy: Yes Other/Comment: S/P hysterectomy, breast implants, tonsillectomy, eye sx - ANESTHESIA Hx Anesthesia: Yes Hx Anesthesia Reactions: No Meds Allergies/Adverse Reactions: Allergies Allergy/AdvReac Type Severity Reaction Status Date / Time amoxicillin Allergy ANAPHYLAXIS Verified 07/12/17 13:08 EGG Allergy ANAPHYLAXIS Verified 07/17/17 01:05 dairy Allergy ANAPHYLAXIS Uncoded 12/02/17 12:32 Physical Exam - Head Exam Head Exam: ATRAUMATIC, NORMAL INSPECTION - Eye Exam Eye Exam: EOMI, Normal appearance - ENT Exam ENT Exam: Mucous Membranes Dry - Neck Exam Neck exam: Positive for: Normal Inspection - Respiratory Exam Respiratory Exam: Decreased Breath Sounds, NORMAL BREATHING PATTERN. absent: Rales, Rhonchi, Wheezes, Respiratory Distress, Stridor - Cardiovascular Exam Cardiovascular Exam: REGULAR RHYTHM, +S1, +S2. absent: Systolic Murmur - GI/Abdominal Exam GI & Abdominal Exam: Normal Bowel Sounds, Soft. absent: Tenderness - Rectal Exam Rectal Exam: Deferred - Extremities Exam Extremities exam: Positive for: normal capillary refill, normal inspection. Negative for: pedal edema, tenderness, pedal pulses present - Back Exam Back exam: NORMAL INSPECTION - Neurological Exam Neurological exam: Alert, CN II-XII Intact, Oriented x3 - Psychiatric Exam Psychiatric exam: Normal Affect, Normal Mood - Skin Skin Exam: Normal Color, Petechiae (on tongue- patient states present for many years), Warm Additional comments: bruising on arms b/l- patient reports present for ~1yr Results - Vital Signs Recent Vital Signs: Last Vital Signs Temp 98.4 F 12/02/17 12:28 Pulse 119 H 12/02/17 14:53 Resp 18 12/02/17 14:53 BP 162/76 H 12/02/17 14:53 Pulse Ox 94 L 12/02/17 14:53 - Labs Result Diagrams: 12/02/17 12:35 12/02/17 12:35 Labs: Laboratory Results - last 24 hr 12/02/17 12/02/17 12/02/17 12:35 12:35 12:35 WBC 10.6 RBC 4.61 Hgb 13.9 Hct 42.7 MCV 92.6 MCH 30.2 MCHC 32.6 RDW 14.5 Plt Count 333 MPV 9.7 Gran % 61.8 Lymph % (Auto) 25.2 Bowie % (Auto) 5.7 Eos % (Auto) 6.6 H Baso % (Auto) 0.7 Gran # 6.58 H Lymph # (Auto) 2.7 Bowie # (Auto) 0.6 Eos # (Auto) 0.7 Baso # (Auto) 0.07 PT 10.5 INR 0.91 APTT 26.0 D-Dimer, Quantitative 504 H pCO2 pO2 HCO3 ABG pH ABG Total CO2 ABG O2 Saturation ABG O2 Content ABG Base Excess ABG Hemoglobin ABG Carboxyhemoglobin POC ABG HHb (Measured) ABG Methemoglobin ABG O2 Capacity Hgb O2 Saturation FiO2 Sodium 137 Potassium 4.7 Chloride 99 Carbon Dioxide 30 Anion Gap 13 BUN 10 Creatinine 0.9 Est GFR ( Amer) > 60 Est GFR (Non-Af Amer) > 60 Random Glucose 133 H Calcium 9.9 Total Bilirubin 0.2 AST 20 ALT 22 Alkaline Phosphatase 56 Troponin I 0.01 NT-Pro-B Natriuret Pep 64.9 Total Protein 6.1 Albumin 3.9 Globulin 2.2 Albumin/Globulin Ratio 1.8 12/02/17 13:10 WBC RBC Hgb Hct MCV MCH MCHC RDW Plt Count MPV Gran % Lymph % (Auto) Bowie % (Auto) Eos % (Auto) Baso % (Auto) Gran # Lymph # (Auto) Bowie # (Auto) Eos # (Auto) Baso # (Auto) PT INR APTT D-Dimer, Quantitative pCO2 44 pO2 70.0 L HCO3 27.9 ABG pH 7.41 ABG Total CO2 29.3 H ABG O2 Saturation 96.9 ABG O2 Content 18.3 ABG Base Excess 2.7 ABG Hemoglobin 14.0 ABG Carboxyhemoglobin 2.6 H POC ABG HHb (Measured) 3.0 ABG Methemoglobin 1.3 ABG O2 Capacity 18.9 Hgb O2 Saturation 93.1 L FiO2 28.0 Sodium Potassium Chloride Carbon Dioxide Anion Gap BUN Creatinine Est GFR ( Amer) Est GFR (Non-Af Amer) Random Glucose Calcium Total Bilirubin AST ALT Alkaline Phosphatase Troponin I NT-Pro-B Natriuret Pep Total Protein Albumin Globulin Albumin/Globulin Ratio - EKG Data EKG Interpreted by: ER Physician EKG shows normal: Sinus rhythm Rate: Tachycardia Assessment & Plan - Assessment and Plan (Free Text) Assessment: Patient is a 67 yo female with a history of COPD who presented with SOB and cough x3 days. Patient will be treated for COPD exacerbation. Plan: COPD exacerbation - CXR: no active disease - CTA chest: no PE, b/l emphysema changes - D-dimer 504 - Afebrile - No leukocytosis - Levaquin 750 mg IV x1 in ED - Supplemental O2 via NC- titrate to sat 92-94 - Solumedrol 40 mg IV Q8H - Xopenex Q6H EDWARD, Q2H PRN - Mucinex LA 600 mg PO BID Tobacco use disorder- contributing to lung disease - Patient reports failing with nicotine patches, gum, and medications - Tobacco cessation counseling IVF: not indicated Diet: heart healthy GI ppx: not indicated VTE ppx: SCDs Code status: full code Case discussed with attending, Dr. Lorenzana. <Mandi Lorenzana R - Last Filed: 12/03/17 17:13> Results - Vital Signs Recent Vital Signs: Last Vital Signs Temp 98.0 F 12/03/17 06:00 Pulse 121 H 12/03/17 14:00 Resp 24 12/03/17 06:00 BP 131/68 12/03/17 06:00 Pulse Ox 95 12/03/17 06:00 - Labs Result Diagrams: 12/03/17 05:30 12/03/17 05:30 Labs: Laboratory Results - last 24 hr 12/02/17 12/03/17 12/03/17 22:56 02:10 02:10 WBC RBC Hgb Hct MCV MCH MCHC RDW Plt Count MPV Gran % Lymph % (Auto) Bowie % (Auto) Eos % (Auto) Baso % (Auto) Gran # Lymph # (Auto) Bowie # (Auto) Eos # (Auto) Baso # (Auto) Neutrophils % (Manual) Band Neutrophils % Lymphocytes % (Manual) Monocytes % (Manual) pCO2 41 pO2 70.0 L 37 HCO3 24.3 ABG pH 7.38 ABG Total CO2 25.6 ABG O2 Saturation 96.0 ABG Base Excess -0.8 ABG Potassium 4.1 VBG pH 7.28 L VBG pCO2 57.0 VBG HCO3 26.8 VBG Total CO2 28.5 H VBG O2 Sat (Calc) 67.4 H VBG Base Excess -1.0 L VBG Potassium 4.7 Sodium 137.0 136.0 Chloride 108.0 H 102.0 Glucose 155 H 251 H Lactate 2.9 H 3.6 H FiO2 28.0 21.0 Potassium Carbon Dioxide Anion Gap BUN Creatinine Est GFR ( Amer) Est GFR (Non-Af Amer) Random Glucose Calcium Phosphorus Magnesium Total Bilirubin AST ALT Alkaline Phosphatase Total Protein Albumin Globulin Albumin/Globulin Ratio Procalcitonin < 0.05 L Arterial Blood Potassium 4.1 Venous Blood Potassium 4.7 12/03/17 12/03/17 12/03/17 05:30 05:30 07:00 WBC 9.5 RBC 4.44 Hgb 13.1 Hct 40.4 MCV 91.0 MCH 29.5 MCHC 32.4 RDW 14.3 Plt Count 328 MPV 9.4 Gran % 91.3 H Lymph % (Auto) 7.8 L Bowie % (Auto) 0.9 L Eos % (Auto) 0.0 L Baso % (Auto) 0.0 Gran # 8.69 H Lymph # (Auto) 0.7 L Bowie # (Auto) 0.1 Eos # (Auto) 0.0 Baso # (Auto) 0.00 Neutrophils % (Manual) 89 H Band Neutrophils % 1 Lymphocytes % (Manual) 9 L Monocytes % (Manual) 1 pCO2 pO2 186 H HCO3 ABG pH ABG Total CO2 ABG O2 Saturation ABG Base Excess ABG Potassium VBG pH 7.35 VBG pCO2 48.0 VBG HCO3 26.5 VBG Total CO2 28.0 VBG O2 Sat (Calc) 100.1 H VBG Base Excess 0.3 VBG Potassium 4.8 Sodium 138 135.0 Chloride 104 106.0 Glucose 159 H Lactate 2.6 H FiO2 21.0 Potassium 4.5 Carbon Dioxide 26 Anion Gap 13 BUN 10 Creatinine 0.8 Est GFR ( Amer) > 60 Est GFR (Non-Af Amer) > 60 Random Glucose 155 H Calcium 9.1 Phosphorus 3.7 Magnesium 2.1 Total Bilirubin 0.3 AST 24 ALT 21 Alkaline Phosphatase 57 Total Protein 6.3 Albumin 4.0 Globulin 2.3 Albumin/Globulin Ratio 1.7 Procalcitonin Arterial Blood Potassium Venous Blood Potassium 4.8 12/03/17 11:00 WBC RBC Hgb Hct MCV MCH MCHC RDW Plt Count MPV Gran % Lymph % (Auto) Bowie % (Auto) Eos % (Auto) Baso % (Auto) Gran # Lymph # (Auto) Bowie # (Auto) Eos # (Auto) Baso # (Auto) Neutrophils % (Manual) Band Neutrophils % Lymphocytes % (Manual) Monocytes % (Manual) pCO2 pO2 49 HCO3 ABG pH ABG Total CO2 ABG O2 Saturation ABG Base Excess ABG Potassium VBG pH 7.38 VBG pCO2 46.0 VBG HCO3 27.2 VBG Total CO2 28.6 H VBG O2 Sat (Calc) 87.3 H VBG Base Excess 1.5 VBG Potassium 4.4 Sodium 135.0 Chloride 104.0 Glucose 198 H Lactate 2.9 H FiO2 21.0 Potassium Carbon Dioxide Anion Gap BUN Creatinine Est GFR ( Amer) Est GFR (Non-Af Amer) Random Glucose Calcium Phosphorus Magnesium Total Bilirubin AST ALT Alkaline Phosphatase Total Protein Albumin Globulin Albumin/Globulin Ratio Procalcitonin Arterial Blood Potassium Venous Blood Potassium 4.4 Attending/Attestation - Attestation I have personally seen and examined this patient.: Yes I have fully participated in the care of the patient.: Yes I have reviewed all pertinent clinical information: Yes Notes (Text): Patient seen and examined by me at 4:15 PM with resident 12/02/17. Case including HPI, physical exam, and assessment and plan discussed with resident. Agree with above with following additions/corrections. Patient is a 67-year-old female with past medical history significant for COPD, tobacco abuse, gastritis, and glaucoma presented to the emergency room with shortness of breath and cough that started 3 days ago. Patient states that the shortness of breath started out of the blue on 11/29/2017. She initially thought that it was secondary to the weather. She tried her nebulizer treatments and Ventolin HFA at home with no improvement. The following day patient started to have a cough that was productive of clear sputum. She states that the shortness of breath was progressively getting worse which brought her into the emergency room today. Shortness of breath is at rest and with exertion. Patient states this has happened previously. Patient is on home oxygen 3 L. She does continue to smoke 3-4 cigarettes daily. She states that she has tried to quit but is allergic to nicotine patches and has been unable to quit. She denies any associated chest pain. She states that she did have a sore throat and mild neck pain from coughing. No fevers or chills. No sick contacts. She denies any headaches or dizziness. No nausea, vomiting, or abdominal pain. No diarrhea or constipation. No dysuria. Patient does bruise easily. 12 point review of systems reviewed by me. Please see above HPI, all other systems negative. Past surgical history. Hysterectomy Physical exam: General: Awake and alert sitting up in bed in no acute distress HEENT: Normocephalic, atraumatic. Pupils equal reactive. Extraocular muscles intact. No scleral icterus. Oropharynx is pink and moist. No pharyngeal erythema or exudate appreciated. Small petechiae seen at tip of tongue which is chronic per patient. Neck is supple. Cardiovascular: Tachycardic S1, S2. No murmurs, rubs, or gallops appreciated Pulmonary: Normal respiratory effort. Decreased breath sounds throughout No rh onchi, rales, or wheezing appreciated. Gastrointestinal: Soft, nondistended. Nontender. Positive bowel sounds all 4 quadrants, no guarding. Musculoskeletal: Moves all extremities, no calf tenderness, no edema appreciated. No CVA tenderness Central nervous system: AAOx 3, CN 2-12 grossly intact Dermatologic: Skin warm and dry. Positive bruising and small petechiae bilateral arms which patient is chronic Assessment and plan: Patient is a 67-year-old female with past medical history significant for COPD, tobacco abuse, gastritis, and glaucoma presented to the emergency room with shortness of breath and cough that started 3 days ago. 1. COPD exacerbation. Chest x-ray per radiologist shows no active disease. CTA chest per radiologist shows no CT evidence of pulmonary embolus or other acute p ulmonary or vascular process, small varix is not significantly changed in appearance of the left upper lobe as well as a similar tiny focus at the left lower lobe, no pattern to suggest malignancy and there is no significant lymphadenopathy appreciated, trace emphysematous changes are identified at the bilateral apices. Place on Xopenex nebulizer treatments every 6 hours and as needed. We'll place on Solu-Medrol every [address] on Mucinex 600 mg twice a day. O2 via nasal cannula as needed. Patient counseled at length about smoking cessation. 2. Tachycardia. Likely secondary to nebulizer treatments and current COPD exacerbation. Monitor on telemetry for now. 3. Elevated blood pressure. May be secondary to acute COPD exacerbation. Patient does not take any medications at home and does not have a history of hypertension. We'll monitor for now. 4. Tobacco abuse. Counseled at length on cessation. 5. GI and DVT prophylaxis. Protonix and SCDs. Case was discussed in detail with the patient and patient's son at bedside regarding her diagnosis and treatment plan. All questions were answered.
[2017-12-02] MEDS: Levalbuterol 0.63 MG/3 ML Inhal Soln UD IH PRN (17:06)
[2017-12-02] MEDS: guaiFENesin 600 mg ER Tab PO SCH (18:32)
[2017-12-02] MEDS: Levalbuterol 0.63 MG/3 ML Inhal Soln UD IH SCH (20:28)
[2017-12-02] MEDS ORDERED: methylPREDNISolone 1 GM in Sodium Chloride 0.9% 250 ML IV ONE (21:14)
[2017-12-02 21:37] VITALS: BMI 19.5
[2017-12-02] MEDS ORDERED: Influenza Vaccine 60 mcg/0.5 mL SYR (4YR UP) IM ONE (21:38)
[2017-12-02] MEDS ORDERED: Pneumococcal 23-Valent Vaccine IM ONE (21:38)
[2017-12-02] MEDS ORDERED: Ipratropium 0.02% Inhal Soln (0.5 mg/2.5 ml) UD IH SCH (22:00)
[2017-12-02] MEDS ORDERED: methylPREDNISolone 40 GM in Sodium Chloride 0.9% 250 ML IV SCH (22:00)
[2017-12-02] MEDS ORDERED: Ipratropium 0.02% Inhal Soln (0.5 mg/2.5 ml) UD IH PRN (22:33)
[2017-12-02] MEDS ORDERED: MethylPREDNISolone 40 mg Vial IVP SCH (22:38)
[2017-12-02 23:01] LABS: ARTERIAL BLOOD GAS HCO3 24.3 mmol/L (21-28); ARTERIAL BLOOD GAS PCO2 41 mm/Hg (35-45); ARTERIAL BLOOD GAS PH 7.38 (7.35-7.45); ARTERIAL BLOOD GAS TCO2 25.6 mmol.L (22-28)
[2017-12-02] MEDS ORDERED: Sodium Chloride 0.9% 1,000 ML IV STA (23:54)
--- NOTE | 2017-12-03 00:01 | PCM.SEPTIC ---
<Gabe Sanchez - Last Filed: 12/03/17 00:14> Sepsis Progress Note - Reassessment Type Date of Evaluation: 12/03/17 Time of Evaluation: 00:01 Reassessment Type: Non-invasive reassessment - Non Invasive Reassessment Were the most recent vital sign reviewed: Yes Vital Sign (Latest): Temp Pulse Resp BP Pulse Ox 98.1 F 121 H 28 H 137/78 94 L 12/02/17 23:41 12/02/17 23:41 12/02/17 23:41 12/02/17 23:41 12/02/17 23:41 Cardiovascular: Yes: Tachycardia Respiratory: Yes: Rales, Wheezing Capillary Refill: Normal (Less than 2 sec) Pulses: Normal Dorsalis Pedis Skin: Normal Color, Warm, Dry Fluid Challenge performed: Yes <Edie Whitt - Last Filed: 12/03/17 00:58> Sepsis Progress Note - Non Invasive Reassessment Vital Sign (Latest): Temp Pulse Resp BP Pulse Ox 98.1 F 121 H 28 H 137/78 94 L 12/02/17 23:41 12/02/17 23:41 12/02/17 23:41 12/02/17 23:41 12/02/17 23:41 Attending/Attestation - Attestation I have personally seen and examined this patient.: Yes I have fully participated in the care of the patient.: Yes I have reviewed all pertinent clinical information, including history, physical exam and plan: Yes
[2017-12-03] MEDS ORDERED: MethylPREDNISolone 40 mg Vial IVP SCH (01:00)
[2017-12-03] MEDS: Ipratropium 0.02% Inhal Soln (0.5 mg/2.5 ml) UD IH SCH ×4 (01:05→19:10)
[2017-12-03] MEDS: Levalbuterol 0.63 MG/3 ML Inhal Soln UD IH SCH ×4 (01:05→19:10)
[2017-12-03 02:53] LABS: VENOUS BLOOD GAS PO2 37 mm/Hg (30-55); VENOUS BLOOD PH 7.28 (7.32-7.43)
[2017-12-03] MEDS ORDERED: levoFLOXacin 750 mg in D5W 150 ML BAG IVPB SCH (03:00)
--- NOTE | 2017-12-03 05:19 | PCM.SEPTIC ---
Sepsis Progress Note - Reassessment Type Date of Evaluation: 12/03/17 (Pt in NAD, no acute complaints. SOB improved. AxO x 4. VSS. Clinically stable) Time of Evaluation: 05:15 Reassessment Type: Non-invasive reassessment - Non Invasive Reassessment Were the most recent vital sign reviewed: Yes Vital Sign (Latest): Temp Pulse Resp BP Pulse Ox 98.0 F 108 H 20 117/64 94 L 12/03/17 03:20 12/03/17 03:20 12/03/17 03:20 12/03/17 03:20 12/03/17 03:20 Cardiovascular: Yes: Tachycardia Respiratory: Yes: Rales, Wheezing. No: Accessory Muscle Use, Respiratory Distress Capillary Refill: Normal (Less than 2 sec) Pulses: Normal Radial, Normal Dorsalis Pedis, Normal Posterior Tibialis Skin: Warm, Dry (Pt seen and examined at bedside. In no respiratory distress. Pt able to talk without SOB. Pt in NAD, AXO x 4. Normotensive. Clinically improved and stable. ) <Gabe Sanchez - Last Filed: 12/03/17 05:22> - Non Invasive Reassessment Vital Sign (Latest): Temp Pulse Resp BP Pulse Ox 98.0 F 108 H 20 117/64 94 L 12/03/17 03:20 12/03/17 03:20 12/03/17 03:20 12/03/17 03:20 12/03/17 03:20 <Edie Whitt - Last Filed: 12/03/17 05:24> Attending/Attestation - Attestation I have personally seen and examined this patient.: Yes I have fully participated in the care of the patient.: Yes I have reviewed all pertinent clinical information, including history, physical exam and plan: Yes <Edie Whitt - Last Filed: 12/03/17 05:24>
[2017-12-03] MEDS: Pantoprazole 20 mg EC Tab PO SCH (05:31)
[2017-12-03] MEDS: Sodium Chloride 0.9% 1,000 ML IV SCH (05:31)
[2017-12-03] MEDS: MethylPREDNISolone 40 mg Vial IVP SCH ×3 (05:33→21:37)
[2017-12-03 06:29] LABS: GRAN # 8.69 (1.4-6.5); GRAN % 91.3 % (50.0-68.0); HEMOGLOBIN 13.1 g/dL (12.0-16.0); LYMPH # 0.7 (1.2-3.4); LYMPH % 7.8 % (22.0-35.0); MEAN CORPUSCULAR HEMOGLOBIN 29.5 pg (25.0-35.0); MEAN CORPUSCULAR HGB CONC 32.4 g/dl (31.0-37.0); MEAN PLATELET VOLUME 9.4 fl (7.0-11.0); MONO # 0.1 (0.1-0.6); MONO % 0.9 % (1.0-6.0); PLATELET COUNT 328 10^3/uL (120.0-450.0); RBC 4.44 10^6/uL (3.5-6.1); RED CELL DISTRIBUTION WIDTH 14.3 % (11.5-14.5); WHITE BLOOD COUNT 9.5 10^3/ul (4.5-11.0)
[2017-12-03 06:44] LABS: ALB/GLOB RATIO 1.7 (1.1-1.8); ALT/SGPT 21 U/L (7-56); AST/SGOT 24 U/L (14-36); BLOOD UREA NITROGEN 10 mg/dL (7-21); CALCIUM 9.1 mg/dL (8.4-10.5); GFR NON-AFRICAN AMERICAN > 60
--- NOTE | 2017-12-03 07:28 | RAD ---
Date of service: 12/03/2017 HISTORY: ?pneumonia COMPARISON: Portable chest 12/02/2017. FINDINGS: LUNGS: No active pulmonary disease. PLEURA: No significant pleural effusion identified, no pneumothorax apparent. CARDIOVASCULAR: Normal. OSSEOUS STRUCTURES: No significant abnormalities. VISUALIZED UPPER ABDOMEN: Normal. OTHER FINDINGS: Peripherally calcified breast implantation reiterated bilaterally. IMPRESSION: No interval acute cardiopulmonary disease appreciated.
[2017-12-03 07:29] LABS: VENOUS BLOOD GAS BASE EXCESS 0.3 mmol/L (0.0-2.0); VENOUS BLOOD GAS PO2 186 mm/Hg (30-55); VENOUS BLOOD PH 7.35 (7.32-7.43)
[2017-12-03 08:41] LABS: BAND 1 % (0-2); LYMPHOCYTE 9 % (22.0-35.0); MONOCYTE 1 % (1.0-6.0); NEUTROPHIL 89 % (50.0-70.0)
--- NOTE | 2017-12-03 09:12 | CARD ---
APPROVED REPORT Date of service: 12/02/2017 EKG Measurement Heart [id number] <Conclusion> Sinus tachycardia Biatrial enlargement Indeterminate axis Pulmonary disease pattern Right bundle branch block No change
[2017-12-03] MEDS: guaiFENesin 600 mg ER Tab PO SCH ×2 (10:16→17:22)
[2017-12-03 12:11] LABS: VENOUS BLOOD GAS BASE EXCESS 1.5 mmol/L (0.0-2.0); VENOUS BLOOD GAS PO2 49 mm/Hg (30-55); VENOUS BLOOD PH 7.38 (7.32-7.43)
--- NOTE | 2017-12-03 18:46 | CP.PCM.CON ---
History of Present Illness - History of Present Illness History of Present Illness: Infectious Disease Consultation: December 03, 2017 67 yo female with history of COPD and glucoma [place] [facility] [place] for the past 3 days and SOB. The patient was brought in by her son. Patient has a known long standing tobacco use history. Patient cough was productive of clear sputum. PMHx: COPD, Glaucoma, Gastritis history PSHx: Breast Implants, Hysterectomy for heavy menstrual bleeding. Allergies: Amoxicillin, dairy Social Hx: Extensive tobacco use history Social EtOH use No illicit drug use Active Medications Guaifenesin (Mucinex La) 600 mg PO BID [facility] Last Admin: 12/03/17 17:22 Dose: 600 mg Sodium Chloride (Sodium Chloride 0.9%) 1,000 mls @ 50 mls/hr IV .Q20H [facility] Last Admin: 12/03/17 05:31 Dose: 50 mls/hr Ipratropium [place] (Atrovent) 0.5 mg IH [id number] [facility] Last Admin: 12/03/17 13:26 Dose: 0.5 mg Ipratropium [place] (Atrovent) 0.5 mg IH Q2 PRN PRN Reason: Shortness of Breath Levalbuterol HCl (Xopenex) 0.63 mg IH [id number] [facility] Last Admin: 12/03/17 13:25 Dose: 0.63 mg Levalbuterol HCl (Xopenex) 0.63 mg IH Q2H PRN PRN Reason: SHORTNESS OF BREATH Last Admin: 12/02/17 17:06 Dose: 0.63 mg Levofloxacin/Dextrose (Levaquin 750mg) 750 mg IVPB Q48H [facility]; Protocol Methylprednisolone (Solu-Medrol) 40 mg IVP Q8 [facility] Last Admin: 12/03/17 14:00 Dose: 40 mg Pantoprazole Sodium (Protonix Ec Tab) 20 mg PO 0600 [facility] Last Admin: 12/03/17 05:31 Dose: 20 mg Family Hx: Father - [place] ROS: positive cough, SOB No fevers, chills, headaches, dizziness, chest pain, abdominal pain, melena, hematuria, hematemesis, hematochezia, depression, anxiety Past Patient History - Infectious Disease Hx of Infectious Diseases: None - Tetanus Immunizations Tetanus Immunization: Unknown - Past Medical History & Family History Past Medical History?: Yes Past Family History: Reviewed and not pertinent - Past Social History Smoking Status: Light Smoker < 10 Cigarettes Daily - CARDIAC Hx Cardiac Disorders: Yes - PULMONARY Hx Chronic Obstructive Pulmonary Disease (COPD): Yes - NEUROLOGICAL Hx Neurological Disorder: No - HEENT Hx HEENT Problems: Yes Hx Glaucoma: Yes Other/Comment: dry eyes - RENAL Hx Chronic Kidney Disease: No - ENDOCRINE/METABOLIC Hx Endocrine Disorders: No - HEMATOLOGICAL/ONCOLOGICAL Hx Blood Disorders: No - INTEGUMENTARY Hx Dermatological Problems: Yes Other/Comment: discolored skin to chest arms legs multiple healing skin tears - MUSCULOSKELETAL/RHEUMATOLOGICAL Hx Falls: No - GASTROINTESTINAL Hx Gastrointestinal Disorders: Yes (gastritis) - GENITOURINARY/GYNECOLOGICAL Hx Genitourinary Disorders: No - PSYCHIATRIC Hx Substance Use: No - SURGICAL HISTORY Hx Surgeries: Yes Hx Hysterectomy: Yes Other/Comment: S/P hysterectomy, breast implants, tonsillectomy, eye sx lasix for refraction both eyes - ANESTHESIA Hx Anesthesia: Yes Hx Anesthesia Reactions: No Meds Allergies/Adverse Reactions: Allergies Allergy/AdvReac Type Severity Reaction Status Date / Time amoxicillin Allergy ANAPHYLAXIS Verified 07/12/17 13:08 EGG Allergy ANAPHYLAXIS Verified 07/17/17 01:05 dairy Allergy ANAPHYLAXIS Uncoded 12/02/17 12:32 - Medications Medications: Current Medications Guaifenesin (Mucinex La) 600 mg PO BID [facility] Last Admin: 12/03/17 17:22 Dose: 600 mg Sodium Chloride (Sodium Chloride 0.9%) 1,000 mls @ 50 mls/hr IV .Q20H [facility] Last Admin: 12/03/17 05:31 Dose: 50 mls/hr Ipratropium [place] (Atrovent) 0.5 mg IH [id number] [facility] Last Admin: 12/03/17 13:26 Dose: 0.5 mg Ipratropium [place] (Atrovent) 0.5 mg IH Q2 PRN PRN Reason: Shortness of Breath Levalbuterol HCl (Xopenex) 0.63 mg IH [id number] [facility] Last Admin: 12/03/17 13:25 Dose: 0.63 mg Levalbuterol HCl (Xopenex) 0.63 mg IH Q2H PRN PRN Reason: SHORTNESS OF BREATH Last Admin: 12/02/17 17:06 Dose: 0.63 mg Levofloxacin/Dextrose (Levaquin 750mg) 750 mg IVPB Q48H [facility]; Protocol Methylprednisolone (Solu-Medrol) 40 mg IVP Q8 [facility] Last Admin: 12/03/17 14:00 Dose: 40 mg Pantoprazole Sodium (Protonix Ec Tab) 20 mg PO 0600 [facility] Last Admin: 12/03/17 05:31 Dose: 20 mg Physical Exam - Constitutional Appears: Non-toxic, No Acute Distress, Chronically Ill - Head Exam Head Exam: ATRAUMATIC, NORMOCEPHALIC - Eye Exam Eye Exam: EOMI, PERRL Pupil Exam: NORMAL ACCOMODATION, PERRL - ENT Exam ENT Exam: Mucous Membranes Moist, Normal External Ear Exam, TM's Normal Bilaterally - Neck Exam Neck exam: Positive for: Full Rom, Normal Inspection - Respiratory Exam Respiratory Exam: Decreased Breath Sounds, NORMAL BREATHING PATTERN. absent: Rales, Rhonchi, Wheezes - Cardiovascular Exam Cardiovascular Exam: REGULAR RHYTHM, RRR, +S1, +S2 - GI/Abdominal Exam GI & Abdominal Exam: Normal Bowel Sounds, Soft. absent: Distended, Tenderness - Extremities Exam Extremities exam: Positive for: full ROM, normal inspection - Neurological Exam Neurological exam: Alert, CN II-XII Intact, Oriented x3 - Psychiatric Exam Psychiatric exam: Normal Affect, Normal Mood - Skin Skin Exam: Intact, Normal Color Results - Vital Signs Recent Vital Signs: Last Vital Signs Temp 98.8 F 12/03/17 17:27 Pulse 104 H 12/03/17 17:27 Resp 22 12/03/17 17:27 BP 122/67 12/03/17 17:27 Pulse Ox 98 12/03/17 17:27 - Labs Result Diagrams: 12/03/17 05:30 12/03/17 05:30 Labs: Laboratory Results - last 24 hr 12/02/17 12/03/17 12/03/17 22:56 02:10 02:10 WBC RBC Hgb Hct MCV MCH MCHC RDW Plt Count MPV Gran % Lymph % (Auto) Randall % (Auto) Eos % (Auto) Baso % (Auto) Gran # Lymph # (Auto) Randall # (Auto) Eos # (Auto) Baso # (Auto) Neutrophils % (Manual) Band Neutrophils % Lymphocytes % (Manual) Monocytes % (Manual) pCO2 41 pO2 70.0 L 37 HCO3 24.3 ABG pH 7.38 ABG Total CO2 25.6 ABG O2 Saturation 96.0 ABG Base Excess -0.8 ABG Potassium 4.1 VBG pH 7.28 L VBG pCO2 57.0 VBG HCO3 26.8 VBG Total CO2 28.5 H VBG O2 Sat (Calc) 67.4 H VBG Base Excess -1.0 L VBG Potassium 4.7 Sodium 137.0 136.0 Chloride 108.0 H 102.0 Glucose 155 H 251 H Lactate 2.9 H 3.6 H FiO2 28.0 21.0 Potassium Carbon Dioxide Anion Gap BUN Creatinine Est GFR ( Amer) Est GFR (Non-Af Amer) Random Glucose Calcium Phosphorus Magnesium Total Bilirubin AST ALT Alkaline Phosphatase Total Protein Albumin Globulin Albumin/Globulin Ratio Procalcitonin < 0.05 L Arterial Blood Potassium 4.1 Venous Blood Potassium 4.7 12/03/17 12/03/17 12/03/17 05:30 05:30 07:00 WBC 9.5 RBC 4.44 Hgb 13.1 Hct 40.4 MCV 91.0 MCH 29.5 MCHC 32.4 RDW 14.3 Plt Count 328 MPV 9.4 Gran % 91.3 H Lymph % (Auto) 7.8 L Randall % (Auto) 0.9 L Eos % (Auto) 0.0 L Baso % (Auto) 0.0 Gran # 8.69 H Lymph # (Auto) 0.7 L Randall # (Auto) 0.1 Eos # (Auto) 0.0 Baso # (Auto) 0.00 Neutrophils % (Manual) 89 H Band Neutrophils % 1 Lymphocytes % (Manual) 9 L Monocytes % (Manual) 1 pCO2 pO2 186 H HCO3 ABG pH ABG Total CO2 ABG O2 Saturation ABG Base Excess ABG Potassium VBG pH 7.35 VBG pCO2 48.0 VBG HCO3 26.5 VBG Total CO2 28.0 VBG O2 Sat (Calc) 100.1 H VBG Base Excess 0.3 VBG Potassium 4.8 Sodium 138 135.0 Chloride 104 106.0 Glucose 159 H Lactate 2.6 H FiO2 21.0 Potassium 4.5 Carbon Dioxide 26 Anion Gap 13 BUN 10 Creatinine 0.8 Est GFR ( Amer) > 60 Est GFR (Non-Af Amer) > 60 Random Glucose 155 H Calcium 9.1 Phosphorus 3.7 Magnesium 2.1 Total Bilirubin 0.3 AST 24 ALT 21 Alkaline Phosphatase 57 Total Protein 6.3 Albumin 4.0 Globulin 2.3 Albumin/Globulin Ratio 1.7 Procalcitonin Arterial Blood Potassium Venous Blood Potassium 4.8 12/03/17 11:00 WBC RBC Hgb Hct MCV MCH MCHC RDW Plt Count MPV Gran % Lymph % (Auto) Randall % (Auto) Eos % (Auto) Baso % (Auto) Gran # Lymph # (Auto) Randall # (Auto) Eos # (Auto) Baso # (Auto) Neutrophils % (Manual) Band Neutrophils % Lymphocytes % (Manual) Monocytes % (Manual) pCO2 pO2 49 HCO3 ABG pH ABG Total CO2 ABG O2 Saturation ABG Base Excess ABG Potassium VBG pH 7.38 VBG pCO2 46.0 VBG HCO3 27.2 VBG Total CO2 28.6 H VBG O2 Sat (Calc) 87.3 H VBG Base Excess 1.5 VBG Potassium 4.4 Sodium 135.0 Chloride 104.0 Glucose 198 H Lactate 2.9 H FiO2 21.0 Potassium Carbon Dioxide Anion Gap BUN Creatinine Est GFR ( Amer) Est GFR (Non-Af Amer) Random Glucose Calcium Phosphorus Magnesium Total Bilirubin AST ALT Alkaline Phosphatase Total Protein Albumin Globulin Albumin/Globulin Ratio Procalcitonin Arterial Blood Potassium Venous Blood Potassium 4.4 Assessment & Plan - Assessment and Plan (Free Text) Assessment: 67 yo female with COPD exacerbation with SOB and productive cough. The patient had a normal Procalcitonin and no leukocytosis or fevers. Started on Levaquin for antibiotic coverage. Leavquin coverage is reasonable start point especially given no leukocytosis or fevers. Noted that the patient has a amoxicillin allergy. Supportive care. Thank you for allowing me to participate in the care of the patient, we will follow with you.
--- NOTE | 2017-12-03 21:55 | CP.PCM.PN ---
<Brigida Lobo - Last Filed: 12/03/17 21:52> Subjective - Date & Time of Evaluation Date of Evaluation: 12/03/17 Time of Evaluation: 07:45 - Subjective Subjective: PGY-1 Brigida Lobo D.O. H&P for Dr. Lorenzana's service: Patient was seen and examined this morning. Code sepsis was called over night due to elevated lactate and sinus tachycardia. She states that she is feeling much better. Her shortness of breath is improving. She still has an intermittent cough. She denies fevers and chills. She denies chest pain and palpitations. She is eating and sleeping well. No urinary complaints and she is having regular BMs. Objective - Vital Signs/Intake and Output Vital Signs (last 24 hours): Temp Pulse Resp BP Pulse Ox 98.8 F 113 H 22 122/67 98 12/03/17 17:27 12/03/17 18:00 12/03/17 17:27 12/03/17 17:27 12/03/17 17:27 Intake and Output: 12/03/17 12/04/17 18:59 06:59 Intake Total 3200 Balance 3200 - Medications Medications: Current Medications Guaifenesin (Mucinex La) 600 mg PO BID [facility] Last Admin: 12/03/17 17:22 Dose: 600 mg Sodium Chloride (Sodium Chloride 0.9%) 1,000 mls @ 50 mls/hr IV .Q20H [facility] Last Admin: 12/03/17 05:31 Dose: 50 mls/hr Ipratropium [place] (Atrovent) 0.5 mg IH [id number] [facility] Last Admin: 12/03/17 19:10 Dose: 0.5 mg Ipratropium [place] (Atrovent) 0.5 mg IH Q2 PRN PRN Reason: Shortness of Breath Levalbuterol HCl (Xopenex) 0.63 mg IH [id number] [facility] Last Admin: 12/03/17 19:10 Dose: 0.63 mg Levalbuterol HCl (Xopenex) 0.63 mg IH Q2H PRN PRN Reason: SHORTNESS OF BREATH Last Admin: 12/02/17 17:06 Dose: 0.63 mg Levofloxacin/Dextrose (Levaquin 750mg) 750 mg IVPB Q48H [facility]; Protocol Methylprednisolone (Solu-Medrol) 40 mg IVP Q8 [facility] Last Admin: 12/03/17 21:37 Dose: 40 mg Pantoprazole Sodium (Protonix Ec Tab) 20 mg PO 0600 [facility] Last Admin: 12/03/17 05:31 Dose: 20 mg - Labs Labs: 12/03/17 05:30 12/03/17 05:30 PT 10.5 SECONDS (9.4-12.5) 12/02/17 12:35 INR 0.91 12/02/17 12:35 APTT 26.0 Seconds (25.1-36.5) 12/02/17 12:35 - Constitutional Appears: Non-toxic, No Acute Distress - Head Exam Head Exam: ATRAUMATIC, NORMAL INSPECTION - Eye Exam Eye Exam: EOMI, Normal appearance - ENT Exam ENT Exam: Mucous Membranes Moist, Normal Exam - Neck Exam Neck Exam: Normal Inspection - Respiratory Exam Respiratory Exam: Wheezes (b/l), NORMAL BREATHING PATTERN. absent: Accessory Muscle Use, Respiratory Distress Additional comments: NC 3L O2 - Cardiovascular Exam Cardiovascular Exam: Tachycardia, REGULAR RHYTHM - GI/Abdominal Exam GI & Abdominal Exam: Soft, Normal Bowel Sounds. absent: Tenderness - Rectal Exam Rectal Exam: Deferred - Extremities Exam Extremities Exam: Normal Inspection. absent: Pedal Edema - Back Exam Back Exam: NORMAL INSPECTION - Neurological Exam Neurological Exam: Alert, Awake, CN II-XII Intact, Oriented x3 Neuro motor strength exam: Left Upper Extremity: 5, Right Upper Extremity: 5, Left Lower Extremity: 5, Right Lower Extremity: 5 - Psychiatric Exam Psychiatric exam: Normal Affect, Normal Mood - Skin Skin Exam: Dry, Intact, Normal Color, Warm Assessment and Plan - Assessment and Plan (Free Text) Assessment: Patient is a 67 yo female with a history of COPD who presented with SOB and cough x3 days. Patient will be treated for COPD exacerbation. Plan: COPD exacerbation - CXR: no active disease - CTA chest: no PE, b/l emphysema changes - D-dimer 504 - Afebrile - No leukocytosis - Levaquin 750 mg IV x1 in ED - Supplemental O2 via NC- titrate to sat 92-94 - Solumedrol 40 mg IV Q8H - Xopenex Q6H [facility], Q2H PRN - Ipratropium Q6H [facility], Q2H PRN - Mucinex LA 600 mg PO BID [facility]- code sepsis - Elevated lactate 2.9->3.6->2.6 - Sinus tachycardia (140s) - LE Dopplers; no CVT - Levaquin 750 mg IV Q48H - NS @ 50 Tobacco use disorder- contributing to lung disease - Patient reports failing with nicotine patches, gum, and medications - Tobacco cessation counseling IVF: NS @ 50 Diet: heart healthy GI ppx: Protonix 20 PO daily VTE ppx: SCDs Code status: full code Case discussed with attending, Dr. Lorenzana. <Mandi Lorenzana R - Last Filed: 12/04/17 16:14> Objective - Vital Signs/Intake and Output Vital Signs (last 24 hours): Temp Pulse Resp BP Pulse Ox 97.7 F 116 H 20 116/66 97 12/04/17 06:00 12/04/17 10:00 12/04/17 06:00 12/04/17 06:00 12/04/17 06:00 Intake and Output: 12/04/17 12/04/17 06:59 18:59 Intake Total 840 Output Total 3 Balance 837 - Labs Labs: 12/04/17 05:30 12/04/17 05:30 PT 10.5 SECONDS (9.4-12.5) 12/02/17 12:35 INR 0.91 12/02/17 12:35 APTT 26.0 Seconds (25.1-36.5) 12/02/17 12:35 Attending/Attestation - Attestation I have personally seen and examined this patient.: Yes I have fully participated in the care of the patient.: Yes I have reviewed all pertinent clinical information, including history, physical exam and plan: Yes Notes (Text): Patient seen and examined by me at 11:25AM with resident 12/03/17. Case including HPI, physical exam, and assessment and plan discussed with resident. Agree with above with following additions/corrections. Patient is a 67-year-old female with past medical history significant for COPD, tobacco abuse, gastritis, and glaucoma presented to the emergency room with shortness of breath and cough that started 3 days ago. Patient states that she is feeling much better today. Cough has improved. Shortness of breath has improved. Still with some wheezing. Patient denies any chest pain or palpitations. No nausea, vomiting, or abdominal pain. No headaches or dizziness. No fevers or chills. No dysuria. Physical exam: General: Awake and alert sitting up in bed in no acute distress HEENT: Normocephalic, atraumatic. Pupils equal reactive. Extraocular muscles intact. No scleral icterus. Oropharynx is pink and moist. No pharyngeal erythema or exudate appreciated. Small petechiae seen at tip of tongue which is chronic per patient. Neck is supple. Cardiovascular: Tachycardic S1, S2. No murmurs, rubs, or gallops appreciated Pulmonary: Normal respiratory effort. Decreased breath sounds throughout. Wheezing throughout. No rhonchi or rales appreciated. Gastrointestinal: Soft, nondistended. Nontender. Positive bowel sounds all 4 quadrants, no guarding. Musculoskeletal: Moves all extremities, no calf tenderness, no edema appreciated. No CVA tenderness Central nervous system: AAOx 3, CN 2-12 grossly intact Dermatologic: Skin warm and dry. Positive bruising and small petechiae bilateral arms which patient is chronic Assessment and plan: Patient is a 67-year-old female with past medical history significant for COPD, tobacco abuse, gastritis, and glaucoma presented to the emergency room with shortness of breath and cough that started 3 days ago. 1. COPD exacerbation. Improving. Continue Solumedrol, nebulizer treatments, and Mucinex. Continue O2 via nasal cannula as needed. Patient was started on Levaquin overnight for elevated lactate. Chest x-ray per radiologist shows no active disease. CTA chest per radiologist shows no CT evidence of pulmonary embolus or other acute pulmonary or vascular process, small varix is not significantly changed in appearance of the left upper lobe as well as a similar tiny focus at the left lower lobe, no pattern to suggest malignancy and there is no significant lymphadenopathy appreciated, trace emphysematous changes are identified at the bilateral apices. Patient counseled at length about smoking cessation. 2. Tachycardia. Likely secondary to nebulizer treatments and current COPD exacerbation. Continue to monitor on telemetry for now. 3. Elevated blood pressure. May be secondary to acute COPD exacerbation. Resolved. Continue to monitor 4. Tobacco abuse. Counseled at length on cessation. 5. GI and DVT prophylaxis. Protonix and SCDs. Case was discussed in detail with the patient regarding current diagnosis and treatment plan. All questions were answered.
[2017-12-04] MEDS: Ipratropium 0.02% Inhal Soln (0.5 mg/2.5 ml) UD IH SCH ×4 (01:05→13:32)
[2017-12-04] MEDS: Levalbuterol 0.63 MG/3 ML Inhal Soln UD IH SCH ×4 (01:06→13:33)
[2017-12-04] MEDS: Pantoprazole 20 mg EC Tab PO SCH (05:37)
[2017-12-04] MEDS: MethylPREDNISolone 40 mg Vial IVP SCH ×2 (05:37→13:56)
[2017-12-04] MEDS: Sodium Chloride 0.9% 1,000 ML IV SCH (05:38)
[2017-12-04] MEDS: Levalbuterol 0.63 MG/3 ML Inhal Soln UD IH PRN ×2 (05:52→14:56)
[2017-12-04 06:44] LABS: GRAN # 16.53 (1.4-6.5); GRAN % 92.5 % (50.0-68.0); HEMOGLOBIN 12.7 g/dL (12.0-16.0); LYMPH # 0.7 (1.2-3.4); LYMPH % 4.1 % (22.0-35.0); MEAN CELL VOLUME 91.8 fl (80.0-105.0); MEAN CORPUSCULAR HEMOGLOBIN 29.8 pg (25.0-35.0); MEAN CORPUSCULAR HGB CONC 32.5 g/dl (31.0-37.0); MEAN PLATELET VOLUME 9.5 fl (7.0-11.0); MONO # 0.6 (0.1-0.6); MONO % 3.4 % (1.0-6.0); RBC 4.26 10^6/uL (3.5-6.1); RED CELL DISTRIBUTION WIDTH 14.7 % (11.5-14.5); WHITE BLOOD COUNT 17.9 10^3/ul (4.5-11.0)
[2017-12-04 07:12] LABS: ALB/GLOB RATIO 1.5 (1.1-1.8); ALBUMIN 3.7 g/dL (3.0-4.8); ALT/SGPT 22 U/L (7-56); AST/SGOT 37 U/L (14-36); BLOOD UREA NITROGEN 13 mg/dL (7-21); CALCIUM 8.9 mg/dL (8.4-10.5); GFR NON-AFRICAN AMERICAN > 60
[2017-12-04] MEDS: guaiFENesin 600 mg ER Tab PO SCH (09:10)
[2017-12-04 10:24] VITALS: BP 116/66; RESP 20; TEMP 97.7; O2SAT 97
[2017-12-04 11:16] VITALS: PULSE 116
[2017-12-04] MEDS ORDERED: levoFLOXacin 750 mg in D5W 150 ML BAG IVPB SCH (13:00)
--- NOTE | 2017-12-04 13:18 | CP.PCM.DIS ---
Provider - Provider Date of Admission: 12/02/17 15:03 Attending physician: Cam Burris MD Primary care physician: Fabien Gonsalez MD Consults: ID Time Spent in preparation of Discharge (in minutes): 45 Diagnosis - Discharge Diagnosis (1) COPD exacerbation Status: Acute Priority: High Hospital Course - Lab Results Lab Results: Micro Results 12/02/17 12:35 Blood-Venous Blood Culture - Preliminary NO GROWTH AFTER 48 HOURS 12/02/17 12:35 Blood-Venous Blood Culture - Preliminary NO GROWTH AFTER 48 HOURS 12/03/17 03:15 Urine,Clean Catch Urine Culture - Final No Growth (<1,000 CFU/ML) Most Recent Lab Values WBC 17.9 10^3/ul (4.5-11.0) H D 12/04/17 05:30 RBC 4.26 10^6/uL (3.5-6.1) 12/04/17 05:30 Hgb 12.7 g/dL (12.0-16.0) 12/04/17 05:30 Hct 39.1 % (36.0-48.0) 12/04/17 05:30 MCV 91.8 fl (80.0-105.0) 12/04/17 05:30 MCH 29.8 pg (25.0-35.0) 12/04/17 05:30 MCHC 32.5 g/dl (31.0-37.0) 12/04/17 05:30 RDW 14.7 % (11.5-14.5) H 12/04/17 05:30 Plt Count 341 10^3/uL (120.0-450.0) 12/04/17 05:30 MPV 9.5 fl (7.0-11.0) 12/04/17 05:30 Gran % 92.5 % (50.0-68.0) H 12/04/17 05:30 Lymph % (Auto) 4.1 % (22.0-35.0) L 12/04/17 05:30 [place] % (Auto) 3.4 % (1.0-6.0) 12/04/17 05:30 Eos % (Auto) 0.0 % (1.5-5.0) L 12/04/17 05:30 Baso % (Auto) 0.0 % (0.0-3.0) 12/04/17 05:30 Gran # 16.53 (1.4-6.5) H 12/04/17 05:30 Lymph # (Auto) 0.7 (1.2-3.4) L 12/04/17 05:30 [place] # (Auto) 0.6 (0.1-0.6) 12/04/17 05:30 Eos # (Auto) 0.0 (0.0-0.7) 12/04/17 05:30 Baso # (Auto) 0.00 K/mm3 (0.0-2.0) 12/04/17 05:30 Neutrophils % (Manual) 89 % (50.0-70.0) H 12/03/17 05:30 Band Neutrophils % 1 % (0-2) 12/03/17 05:30 Lymphocytes % (Manual) 9 % (22.0-35.0) L 12/03/17 05:30 Monocytes % (Manual) 1 % (1.0-6.0) 12/03/17 05:30 PT 10.5 SECONDS (9.4-12.5) 12/02/17 12:35 INR 0.91 12/02/17 12:35 APTT 26.0 Seconds (25.1-36.5) 12/02/17 12:35 D-Dimer, Quantitative 504 ng/mlDDU (0-243) H 12/02/17 12:35 pCO2 41 mm/Hg (35-45) 12/02/17 22:56 pO2 49 mm/Hg (30-55) 12/03/17 11:00 HCO3 24.3 mmol/L (21-28) 12/02/17 22:56 ABG pH 7.38 (7.35-7.45) 12/02/17 22:56 ABG Total CO2 25.6 mmol.L (22-28) 12/02/17 22:56 ABG O2 Saturation 96.0 % (95-98) 12/02/17 22:56 ABG O2 Content 18.3 ML/dl (15-23) 12/02/17 13:10 ABG Base Excess -0.8 mmol/L (-2.0-3.0) 12/02/17 22:56 ABG Hemoglobin 14.0 g/dL (11.7-17.4) 12/02/17 13:10 ABG Carboxyhemoglobin 2.6 % (0.5-1.5) H 12/02/17 13:10 POC ABG HHb (Measured) 3.0 % (0-5) 12/02/17 13:10 ABG Methemoglobin 1.3 % (0.0-3.0) 12/02/17 13:10 ABG O2 Capacity 18.9 mL/dl (16-24) 12/02/17 13:10 ABG Potassium 4.1 mmol/L (3.6-5.2) 12/02/17 22:56 VBG pH 7.38 (7.32-7.43) 12/03/17 11:00 VBG pCO2 46.0 (40-60) 12/03/17 11:00 VBG HCO3 27.2 mmol/l (21-28) 12/03/17 11:00 VBG Total CO2 28.6 mmol.L (22-28) H 12/03/17 11:00 VBG O2 Sat (Calc) 87.3 % (40-65) H 12/03/17 11:00 VBG Base Excess 1.5 mmol/L (0.0-2.0) 12/03/17 11:00 VBG Potassium 4.4 mmol/L (3.6-5.2) 12/03/17 11:00 Hgb O2 Saturation 93.1 % (95.0-98.0) L 12/02/17 13:10 Sodium 135.0 mmol/L (132-148) 12/03/17 11:00 Chloride 104.0 mmol/L (98-107) 12/03/17 11:00 Glucose 198 mg/dl (65-105) H 12/03/17 11:00 Lactate 2.9 mmol/L (0.7-2.1) H 12/03/17 11:00 FiO2 21.0 % 12/03/17 11:00 Sodium 140 mmol/L (132-148) 12/04/17 05:30 Potassium 4.6 mmol/L (3.6-5.0) 12/04/17 05:30 Chloride 104 mmol/L (98-107) 12/04/17 05:30 Carbon Dioxide 30 mmol/L (21-33) 12/04/17 05:30 Anion Gap 11 (10-20) 12/04/17 05:30 BUN 13 mg/dL (7-21) 12/04/17 05:30 Creatinine 0.7 mg/dl (0.7-1.2) 12/04/17 05:30 Est GFR ( Amer) > 60 12/04/17 05:30 Est GFR (Non-Af Amer) > 60 12/04/17 05:30 Random Glucose 136 mg/dL (70-110) H 12/04/17 05:30 Calcium 8.9 mg/dL (8.4-10.5) 12/04/17 05:30 Phosphorus 3.6 mg/dL (2.5-4.5) 12/04/17 05:30 Magnesium 2.2 mg/dL (1.7-2.2) 12/04/17 05:30 Total Bilirubin 0.3 mg/dL (0.2-1.3) 12/04/17 05:30 AST 37 U/L (14-36) H D 12/04/17 05:30 ALT 22 U/L (7-56) 12/04/17 05:30 Alkaline Phosphatase 48 U/L (38-126) 12/04/17 05:30 Troponin I 0.01 ng/mL 12/02/17 12:35 NT-Pro-B Natriuret Pep 64.9 pg/mL (0-450) 12/02/17 12:35 Total Protein 6.2 g/dL (5.8-8.3) 12/04/17 05:30 Albumin 3.7 g/dL (3.0-4.8) 12/04/17 05:30 Globulin 2.4 gm/dL 12/04/17 05:30 Albumin/Globulin Ratio 1.5 (1.1-1.8) 12/04/17 05:30 Procalcitonin < 0.05 NG/ML (0.19-0.49) L 12/03/17 02:10 Arterial Blood Potassium 4.1 mmol/L (3.6-5.2) 12/02/17 22:56 Venous Blood Potassium 4.4 mmol/L (3.6-5.2) 12/03/17 11:00 - Hospital Course Hospital Course: 67 year old female with history of COPD, tobacco abuse, gastritis, and glaucoma presented to the ED on 12/02/17 due to shortness of breath and cough for 3 days duration. Cough was productive of clear sputum. Nebulizer treatments and Ventolin HFA at home provided no improvement. She was last hospitalized in July 2017 for severe shortness of breath and rash covering her whole body. Patient was started on 3L oxygen at home 4 months ago. She also takes Ventolin for emergencies which did not help with the recent episode of shortness of breath. She complains of mild sore throat and neck pain due to coughing. Patient smokes 2-4 cigarettes daily and has a long standing history of tobacco use. On initial exam, there were decreased breath sounds. Patient was admitted for COPD exacerbation. Patient was afebrile and tachycardic at 121 bpm with respiratory rate of 24 breaths per minute. Chest x-ray showed no active disease. CTA chest showed bilateral emphysema changes but no pulmonary embolism. D-dimer was elevated 504. Labs showed no leukocytosis. Patient was continued on supplemental O2 via nasal cannula, and started on solumedrol 40mg IV q8h, xopenex q6h and q2h prn, and mucinex 600mg PO BID. Code sepsis was called at 12/03/17 at 12:01 AM due to elevated lactate. Patient was tachycardic at 121 bpm. Respiratory rate was 28 and BP was 137/79. Patient was given levaquin and ipratropium and started on IVF. Shortness of breath and cough improved with treatment. She still had an intermittent cough but no fever or chills. On morning of discharge, patient reports feeling much better with nebulizer treatments. She denies shortness of breath and chest pain and is afebrile. She is alert and oriented. No wheezing was heard on lung auscultation. Patient was instructed to continue to do nebulizer treatments at home. She was encouraged to quit smoking. Discharge Exam - Head Exam Head Exam: ATRAUMATIC, NORMAL INSPECTION - Eye Exam Eye Exam: EOMI, Normal appearance - ENT Exam ENT Exam: Mucous Membranes Moist, Normal Exam - Neck Exam Neck exam: Normal Inspection - Respiratory Exam Respiratory Exam: Decreased Breath Sounds, Clear to PA & Lateral, NORMAL BREATHING PATTERN Additional comments: O2 via NC - Cardiovascular Exam Cardiovascular Exam: REGULAR RHYTHM, +S1, +S2 - GI/Abdominal Exam GI & Abdominal Exam: Normal Bowel Sounds, Soft, Unremarkable. absent: Tenderness - Rectal Exam Rectal Exam: Deferred - Extremities Exam Extremities exam: normal inspection, pedal pulses present - Back Exam Back exam: NORMAL INSPECTION - Neurological Exam Neurological exam: Alert, CN II-XII Intact, Normal Gait, Oriented x3 - Psychiatric Exam Psychiatric exam: Normal Affect, Normal Mood - Skin Skin Exam: Dry, Intact, Normal Color, Warm Discharge Plan - Discharge Medications Prescriptions: Guaifenesin [Mucinex] 600 mg PO Q12H #10 tab.er.12h Levofloxacin [Levaquin] 500 mg PO DAILY 5 Days #5 tablet Omeprazole 20 mg PO DAILY #30 tablet. predniSONE [Prednisone] 10 mg PO DAILY #30 tab - Follow Up Plan Condition: IMPROVED Disposition: HOME/ ROUTINE Patient education suggested?: Yes Instructions: Exacerbation of COPD (DC) Additional Instructions: You are being discharged from [facility] after being treated for a COPD exacerbation. Please follow-up with Dr. Gonsalez within 3-5 days of discharge. You will be given a prescription for Levaquin (antibiotic) for a total of 5 days. Please take until all pills complete. You will be given a prescription for a steroid taper- follow instructions on prescription for taking pills. You are highly encouraged to stop smoking. If symptoms return, please present to the nearest emergency room. Referrals: Fabien Gonsalez MD [Primary Care Provider] -
--- NOTE | 2017-12-04 14:22 | CP.PCM.PN ---
Subjective - Date & Time of Evaluation Date of Evaluation: 12/04/17 Time of Evaluation: 13:30 - Subjective Subjective: Infectious Disease Follow Up: December 04, 2017 67 yo female with history of COPD and glucoma presented to [facility] with cough for the past 3 days and SOB. The patient was brought in by her son. Patient has a known long standing tobacco use history. Patient cough was productive of clear sputum. Today, the patient states that she feels well. Currently no cough or SOB. Patient is eager to go home. Objective - Vital Signs/Intake and Output Vital Signs (last 24 hours): Temp Pulse Resp BP Pulse Ox 97.7 F 116 H 20 116/66 97 12/04/17 06:00 12/04/17 10:00 12/04/17 06:00 12/04/17 06:00 12/04/17 06:00 Intake and Output: 12/04/17 12/04/17 06:59 18:59 Intake Total 840 Output Total 3 Balance 837 - Medications Medications: Current Medications Guaifenesin (Mucinex La) 600 mg PO BID [facility] Last Admin: 12/04/17 09:10 Dose: 600 mg Sodium Chloride (Sodium Chloride 0.9%) 1,000 mls @ 50 mls/hr IV .Q20H [facility] Last Admin: 12/04/17 05:38 Dose: Not Given Ipratropium [place] (Atrovent) 0.5 mg IH [id number] [facility] Last Admin: 12/04/17 13:32 Dose: Not Given Ipratropium [place] (Atrovent) 0.5 mg IH Q2 PRN PRN Reason: Shortness of Breath Last Admin: 12/04/17 05:51 Dose: 0.5 mg Levalbuterol HCl (Xopenex) 0.63 mg IH [id number] [facility] Last Admin: 12/04/17 13:33 Dose: Not Given Levalbuterol HCl (Xopenex) 0.63 mg IH Q2H PRN PRN Reason: SHORTNESS OF BREATH Last Admin: 12/04/17 05:52 Dose: 0.63 mg Levofloxacin/Dextrose (Levaquin 750mg) 750 mg IVPB Q48H [facility]WARD; Protocol Last Admin: 12/04/17 13:57 Dose: 750 mg Methylprednisolone (Solu-Medrol) 40 mg IVP Q8 [facility] Last Admin: 12/04/17 13:56 Dose: 40 mg Pantoprazole Sodium (Protonix Ec Tab) 20 mg PO 0600 [facility] Last Admin: 12/04/17 05:37 Dose: 20 mg - Labs Labs: 12/04/17 05:30 12/04/17 05:30 PT 10.5 SECONDS (9.4-12.5) 12/02/17 12:35 INR 0.91 12/02/17 12:35 APTT 26.0 Seconds (25.1-36.5) 12/02/17 12:35 - Constitutional Appears: Non-toxic, No Acute Distress, Chronically Ill - Head Exam Head Exam: ATRAUMATIC, NORMOCEPHALIC - Eye Exam Eye Exam: EOMI, PERRL Pupil Exam: NORMAL ACCOMODATION, PERRL - ENT Exam ENT Exam: Mucous Membranes Moist, Normal External Ear Exam, TM's Normal Bilaterally - Neck Exam Neck Exam: Full ROM, Normal Inspection - Respiratory Exam Respiratory Exam: Decreased Breath Sounds, NORMAL BREATHING PATTERN. absent: Rales, Rhonchi, Wheezes - Cardiovascular Exam Cardiovascular Exam: REGULAR RHYTHM, RRR, +S1, +S2 - GI/Abdominal Exam GI & Abdominal Exam: Soft, Normal Bowel Sounds. absent: Distended, Tenderness - Extremities Exam Extremities Exam: Full ROM, Normal Inspection - Neurological Exam Neurological Exam: Alert, Awake, CN II-XII Intact, Oriented x3 - Psychiatric Exam Psychiatric exam: Normal Affect, Normal Mood - Skin Skin Exam: Intact, Normal Color Assessment and Plan - Assessment and Plan (Free Text) Assessment: 67 yo female with COPD exacerbation with SOB and productive cough. The patient had a normal Procalcitonin and no leukocytosis or fevers. Started on Levaquin for antibiotic coverage. Levaquin coverage is reasonable start point especially given no leukocytosis or fevers. Noted that the patient has a amoxicillin allergy. Supportive care. Patient making no complaints at this time. Can consider use of 5 more days of Levaquin on discharge. This can be given orally. Patient is eager to go home. Thank you for allowing me to participate in the care of the patient, we will follow with you.
== END 2017-12-04 15:38 | disposition home or self-care (01) | DRG 191 ==
LOC: ED 12:18 → ERH 15:03 → 3RNO 18:27
PROVIDERS: ADMIT Internal Medicine; ATTEND Internal Medicine
DX: J44.1 Chronic obstructive pulmonary disease with (acute) exacerbation (principal); R65.10 Systemic inflammatory response syndrome (SIRS) of non-infectious origin without acute organ dysfunction; F17.210 Nicotine dependence, cigarettes, uncomplicated; H40.9 Unspecified glaucoma